=== PATIENT | male | born 1955 | race Caucasian/White ===

== ENCOUNTER 2020-12-14 12:25 | Outpatient (REF) | payer MEDICARE, SELFPAY ==
[2020-12-14 13:31] LABS: MANUAL DIFF FLAG NO
[2020-12-14 13:33] LABS: Basophils Percent Auto 0.2 % (0-2); Hematocrit 41.3 % (42-52); Hemoglobin 13.5 g/dl (14.0-18.0); Imm Gran Abs Auto 0.01 X10*3/uL (0.00-0.03); Imm Gran Pct Auto 0.2 % (0.0-0.4); Lymphocytes Absolute Auto 1.3 X10*3/uL (1.2-4.9); Lymphocytes Percent Auto 29.3 % (20-40); Mean Corpuscular HGB Conc 32.7 g/dl (31.0-36.0); Mean Corpuscular Hemoglobin 29.5 pg (27.0-33.0); Mean Corpuscular Volume 90.2 fL (80-98); Mean Platelet Volume 10.6 fL (9.4-12.4); Monocytes Absolute Auto 0.5 X10*3/uL (0.1-1.2); Monocytes Percent Auto 10.8 % (2-11); Neutrophils Absolute Auto 2.6 X10*3/uL (2.0-8.3); Neutrophils Percent Auto 59.5 % (45-73); Platelet Count 167 X10*3/uL (160-400); Red Blood Count 4.58 X10*6/uL (4.60-5.80); Red Cell Distribution Width 13.8 % (11.0-16.0); White Blood Count 4.3 X10*3/uL (4.8-10.8)
[2020-12-14 14:04] LABS: Alanine Aminotransferase 35 U/L (0-40); Alkaline Phosphatase 64 U/L (39-117); Anion Gap 11 (12-20); Aspartate Amino Transferase 32 U/L (5-37); Bilirubin Total 1.4 mg/dL (0.0-1.0); Blood Urea Nitrogen 15 mg/dL (9-16); Calcium 8.8 mg/dL (8.4-10.2); Carbon Dioxide 27 mmol/L (22-29); Chloride 108 mmol/L (96-108); Cholesterol 148 mg/dL; Estimated Glomerular Filt Rate > 60; Glucose Random 87 mg/dL (60-115); HDL Cholesterol 43 mg/dL; LDL Cholesterol Calculated 82 mg/dl; Sodium 142 mmol/L (135-145); Total Protein 6.6 g/dL (6.5-8.0); Triglycerides 118 mg/dL
[2020-12-14 14:24] LABS: Prostate Specific Antigen 0.65 ng/mL (<0.05-4.0); Thyroid Stimulating Hormone 1.77 uIU/mL (0.32-4.0)
== END 2020-12-14 12:26 | disposition home or self-care (01) ==
LOC: HO.LAB 12:25
PROVIDERS: PCP Internal Medicine; Visit Provider Internal Medicine
DX: Z00.00 Encounter for general adult medical examination without abnormal findings (principal); I10 Essential (primary) hypertension; M05.871 Other rheumatoid arthritis with rheumatoid factor of right ankle and foot; M10.9 Gout, unspecified; N40.0 Benign prostatic hyperplasia without lower urinary tract symptoms; Z86.010 Personal history of colon polyps
CPT/HCPCS: 36415; 80053; 80061; 84153; 84443; 85025

== ENCOUNTER → 2021-03-14 09:30 | Outpatient (BNVA) | payer MEDICARE, SELFPAY | PROVIDERS: PCP Internal Medicine; Visit Provider Physician Assistant | DX: D12.6 Benign neoplasm of colon, unspecified (principal) | CPT/HCPCS: 99202 ==

== ENCOUNTER 2021-04-26 08:28 | Day surgery (SDC) | payer MEDICARE, SELFPAY ==
[2021-04-22 10:42] VITALS: BMI 34.2
--- NOTE | 2021-04-25 08:41 | HO.ANESPROP2 ---
Documented by User: Selene Sullivan NP 04/25/21 08:42 HPI - Anesthesia Eval Consult details Narrative: 66yo M for Colonoscopy PMFSH Active Problems Active Problems: All Active Problems (Updated 04/22/21 @ 10:39 by Eun Martinez RN) Tubular adenoma of colon (Acute) Hypertension (Acute) Past Medical History Medical History Hypertension Rheumatoid arthritis Sleep apnea Family History Family History Father Alzheimers disease Mother Pyelonephritis Family/Other Prostate cancer Breast cancer Polymyalgia rheumatica Surgical History Surgical History H/O colonoscopy History of appendectomy History of cholecystectomy History of facial surgery Social History Social History Household Members Other:: single Are you a primary healthcare recruiter to a significant other at home: No Do you presently have visiting nurse or other home services: No Alcohol intake: never Patient Tobacco Use Status: Former Tobacco user Are you DNR?: No Advance Directives: No Advance Directives Information Provided: Yes (does not have a HCP) Advance Directives on File: No Recently lost weight without trying: No Eating poorly because of decreased appetite: No Nutrition Risks: No Nutritional Risk Current occupational status: disabled Meds Allergies Allergy/AdvReac Type Severity Reaction Status Date / Time methotrexate [METHOTREXATE] Allergy Unknown NAUSEA Verified 04/26/21 09:57 Home Medications Medication Instructions Recorded Confirmed Last Taken Type ciclopirox 0.77 % topical cream appl TOPICAL 07/31/20 03/14/21 Unknown History etanercept 25 mg SUBCUT 2XW ml 09/12/20 04/22/21 Unknown History hydroxyzine HCl 25 mg tablet 25 mg PO Q6H tab 09/12/20 04/22/21 Unknown History hydroxychloroquine 200 mg tablet 200 mg PO BID 03/14/21 04/22/21 Unknown History sulfasalazine 500 mg tablet PO 03/14/21 03/14/21 Unknown History Exam Exam Date and Time: April 25, 2021 0841 Height,Weight and Vital Signs: Height 6 ft 5.5 in Weight 132.903 kg Pertinent Lab Results Pertinent Lab Results: Laboratory Tests 04/16/21 04/16/21 12:40 12:40 WBC 4.3 L Hgb 13.5 L Hct 41.3 L Plt Count 167 Sodium 142 Potassium 4.0 Chloride 108 Carbon Dioxide 27 BUN 15 Creatinine 1.02 Assessment and Plan Assessment Anesthesia Assessment: Chart Reviewed Documented by User: Makayla Vasquez MD 04/26/21 11:05 PMFSH Past Medical History Medical History Hypertension Rheumatoid arthritis Sleep apnea Family History Family History Father Alzheimers disease Mother Pyelonephritis Family/Other Prostate cancer Breast cancer Polymyalgia rheumatica Family history of problems with anesthesia: No Surgical History Surgical History H/O colonoscopy History of appendectomy History of cholecystectomy History of facial surgery History of Problems with Anesthesia: No Social History Social History Household Members Other:: single Are you a primary healthcare recruiter to a significant other at home: No Do you presently have visiting nurse or other home services: No Alcohol intake: never Patient Tobacco Use Status: Former Tobacco user Are you DNR?: No Advance Directives: No Advance Directives Information Provided: Yes (does not have a HCP) Advance Directives on File: No Recently lost weight without trying: No Eating poorly because of decreased appetite: No Nutrition Risks: No Nutritional Risk Current occupational status: disabled Meds Allergies Allergy/AdvReac Type Severity Reaction Status Date / Time methotrexate [METHOTREXATE] Allergy Unknown NAUSEA Verified 04/26/21 09:57 Home Medications Medication Instructions Recorded Confirmed Last Taken Type ciclopirox 0.77 % topical cream appl TOPICAL 07/31/20 03/14/21 Unknown History etanercept 25 mg SUBCUT 2XW ml 09/12/20 04/22/21 Unknown History hydroxyzine HCl 25 mg tablet 25 mg PO Q6H tab 09/12/20 04/22/21 Unknown History hydroxychloroquine 200 mg tablet 200 mg PO BID 03/14/21 04/22/21 Unknown History sulfasalazine 500 mg tablet PO 03/14/21 03/14/21 Unknown History Exam Airway Mallampati Class: II TM Dist: >3cm Neck ROM: Full Assessment and Plan Assessment Anesthesia Assessment: Anesthesia Plan Discussed Final Anesthetic Review Family History of Problems with Anesthesia: No History of Problems with Anesthesia: No NPO: Yes ASA Class: III Final Preanesthetic Review: No Changes in Pt Med Stat, Meds/Allgs Chart Reviewed, Consent Obtained/Reviewed and Anes Risks/Benef Reviewed Patient Risk: Intermediate Procedure Risk: Low Anesthetic Plan Anesthetic Plan: MAC: Disposition: Standard PACU
[2021-04-26 09:59] VITALS: BP 160/78; PULSE 60; RESP 16; TEMP 36.8; O2SAT 98
[2021-04-26] MEDS: Lactated Ringers 1,000 ML 100 ML IVCONT (10:24)
--- NOTE | 2021-04-26 10:27 | MHC.SHP ---
Pre-Procedural Eval Section A Date of Service: 04/26/21 The patient is an INPATIENT: No The History & Physical has been completed within 30 days and I have reviewed it.: No Section B Chief Complaint: tubular adenoma of colon Details of Present Illness: Colon cancer screening, history of colon polyps Relevant Family History (Specify if Yes): No Relevant Social History: Tobacco Use (Former smoker) Present Medications: see Short Stay Collaborative assessment Medical History: Significant History (Hypertension) History of Previous Operations: Relevant previous surgery/procedure and date(s) (H/O colonoscopy History of appendectomy History of cholecystectomy History of facial surgery) Allergies: Allergies Allergy/AdvReac Type Severity Reaction Status Date / Time methotrexate [METHOTREXATE] Allergy Unknown NAUSEA Verified 04/26/21 09:57 Review of Systems Sugical H&P ROS: Negative: Constitution, Cardiovascular, Respiratory and Gastrointestinal Exam Surgical H&P Exam: Normal: Heart, Normal: Lungs, Normal: Extremities and Normal: Abdomen Plan Diagnosis/Plan: Unchanged I have reviewed the history and physical and performed a pertinent physical examination on my patient. No changes have occurred unless specified.
--- NOTE | 2021-04-26 11:27 | P.BOP_ITS ---
Brief Operative Note Date of Service: 04/26/21 Pre-op diagnosis: Colon cancer screening, history of colon polyps Post-op diagnosis: other (Colon polyps, diverticulosis, hemorrhoids) Procedure: COLONOSCOPY TILL MID ASCENDING COLON WITH BIOPSIES AND SNARE POLYPECTOMY Consent: Indications for the procedure and potential complications of bleeding, perforation, reaction to medications and missed diagnosis were discussed with the patient and informed consent was obtained. Instrument: Olympus CF HQ 190 L variable stiffness adult colonoscope Monitoring: Vital signs and clinical assessment, intermittent blood pressure monitoring, continuous EKG monitoring, Pulse oximetry and Carbon Dioxide monitoring were done throughout the procedure. Colon withdrawl time was 25 minutes. Procedure: The patient was placed in the left lateral decubitis position and pre-procedure medications were administered. After a digital rectal examination of the ano-rectum, the video colonoscope was inserted into the rectum and advanced through the colon to the mid AC. The colonoscope was slowly withdrawn in a retrograde panoramic fashion and the colon mucosa was carefully examined including a retroflexed view of the rectum. Findings and interventions are described below. Procedure Difficulty: Colon was long and tortuous and there was recurrent loop formation. Patient was placed in the supine position with application of abdominal pressure to intubate the ascending colon. Cecum was visualized from a distance and was not intubated Findings: Terminal Ileum: Not evaluated Cecum: Not evaluated Ascending Colon: Normal Transverse Colon: A 10-12 mm sessile polyp removed with a cold snare Descending Colon: Moderate diverticulosis Sigmoid Colon: Two 3-4 mm sessile polyps removed with a cold bx. Three 8-10 mm sessile polyps removed with a cold snare. Moderate diverticulosis Rectum: Normal Ano-rectum: Moderate internal hemorrhoids Colon preparation: Good Impression and Post Procedure Diagnosis: Colonoscopy Findings: Six small to medium sized polyps removed. Cecum was not evaluated Moderate diverticulosis seen in the left colon Moderate hemorrhoids on retroflexed exam. Plan: Await pathology results Patient has an appointment on 05/23/21 in the [facility] with JUAN Alaniz. Repeat Colonoscopy interval based on path results - in 6 to 12 months with small bowel enteroscope to help reach the cecum if polyps are adenomatous - please schedule with Dr Constantino Above findings were reviewed with the patient and colon polyps and diverticulosis handouts were given in the discharge area Surgeon: Valdemar Regalado MD Anesthesia: MAC (Malinda Ferro CRNA) Was an Guide Dog Trainer used for this Procedure?: Yes Guide Dog Trainer: Arlin Balderas Estimated blood loss (mL): 0 Pathology: other (a- transverse colon polyp b- sigmoid colon polyps) Condition: stable Disposition: PACU
--- NOTE | 2021-04-26 11:33 | W.PM.OPN ---
Operative Note Operative Note Date of Service: 04/26/21 Narrative: Pre-op diagnosis:?Colon cancer screening, history of colon polyps Post-op diagnosis:?other (Colon polyps, diverticulosis, hemorrhoids) Procedure:? COLONOSCOPY TILL MID ASCENDING COLON WITH BIOPSIES AND SNARE POLYPECTOMY Consent: Indications for the procedure and potential complications of bleeding, perforation, reaction to medications and missed diagnosis were discussed with the patient and informed consent was obtained. Instrument: Olympus CF HQ 190 L variable stiffness adult colonoscope Monitoring: Vital signs and clinical assessment, intermittent blood pressure monitoring, continuous EKG monitoring, Pulse oximetry and Carbon Dioxide monitoring were done throughout the procedure. Colon withdrawl time was 25 minutes. Procedure: The patient was placed in the left lateral decubitis position and pre-procedure medications were administered. After a digital rectal examination of the ano-rectum, the video colonoscope was inserted into the rectum and advanced through the colon to the mid AC. The colonoscope was slowly withdrawn in a retrograde panoramic fashion and the colon mucosa was carefully examined including a retroflexed view of the rectum. Findings and interventions are described below. Procedure Difficulty:? Colon was long and tortuous and there was recurrent loop formation.? Patient was placed in the supine position with application of abdominal pressure to intubate the ascending colon. Cecum was visualized from a distance and was not intubated Findings: Terminal Ileum: Not evaluated Cecum:? Not evaluated Ascending Colon:? Normal Transverse Colon:? A 10-12 mm sessile polyp removed with a cold snare Descending Colon:? Moderate diverticulosis Sigmoid Colon:? Two 3-4 mm sessile polyps removed with a cold bx.? Three 8-10 mm sessile polyps removed with a cold snare.? Moderate diverticulosis Rectum:? Normal Ano-rectum:? Moderate internal hemorrhoids Colon preparation:? Good? Impression and Post Procedure Diagnosis: Colonoscopy Findings: Six small to medium sized polyps removed. Cecum was not evaluated Moderate diverticulosis seen in the left colon Moderate hemorrhoids on retroflexed exam. Plan: Await pathology results Patient has an appointment on 05/23/21 in the GI Clinic with JUAN Alaniz. Repeat Colonoscopy interval based on path results - in 6 to 12 months with small bowel enteroscope to help reach the cecum? if polyps are adenomatous - please schedule with Dr Constantino Above findings were reviewed with the patient and colon polyps and diverticulosis handouts were given in the discharge area Surgeon:?Valdemar Regalado MD Anesthesia:?MAC (Malinda Ferro CRNA) Was an Net Developer Contract used for this Procedure?:?Yes Net Developer Contract:?Arlin Balderas Estimated blood loss (mL):?0 Pathology:?other (a- transverse colon polyp? b- sigmoid colon polyps) Condition:?stable Disposition:?PACU
[2021-04-26 11:36] VITALS: BP 109/57; PULSE 76; RESP 22; TEMP 36.8; O2SAT 92
[2021-04-26 11:51] VITALS: BP 109/53; PULSE 68; RESP 18; TEMP 36.7; O2SAT 98
== END 2021-04-26 13:28 | disposition home or self-care (01) ==
PROVIDERS: PCP Internal Medicine; Visit Provider Internal Medicine Gastroenterology
PROC: 0DJD8ZZ Inspection of Lower Intestinal Tract, Via Natural or Artificial Opening Endoscopic (ICD-10-PCS; CPT 45378; principal; 2021-04-26 10:10)
DX: Z12.11 Encounter for screening for malignant neoplasm of colon (principal); D12.3 Benign neoplasm of transverse colon; D12.5 Benign neoplasm of sigmoid colon; K56.2 Volvulus; K64.8 Other hemorrhoids; K57.30 Diverticulosis of large intestine without perforation or abscess without bleeding; Z86.010 Personal history of colon polyps; I10 Essential (primary) hypertension
CPT/HCPCS: 45385; 45380; 88305

== ENCOUNTER 2021-08-12 23:53 | Observation (INO) | payer MEDICARE, OTHER, SELFPAY ==
--- NOTE | ~2021-08-12 | CT_ITS ---
EXAMINATION: CT CHEST WITHOUT CONTRAST CLINICAL INFORMATION: Question food impaction. COMPARISON: Radiograph from today. TECHNIQUE: Multidetector volumetric CT imaging of the chest was done. Axial MIP volume rendering provided. Sagittal and coronal reformatted images were obtained. This CT examination was performed using dose optimization techniques as appropriate, variously including the following: *Automated exposure control *Adjustment of mA and/or kV according to patient size (this includes techniques or standardized protocols for targeted exams where dose is matched to indication/reason for exam; i.e. extremities or head) *Use of iterative reconstruction technique DLP: 623 mGy-cm FINDINGS: HAND MOLDER: Cardiac leads overlie the chest. LUNGS: The central airways are patent. No consolidation. No pneumothorax. No suspicious pulmonary nodules. MEDIASTINUM: Normal heart size. No pericardial effusion. No mediastinal lymphadenopathy. Calcification in the right lobe of the thyroid gland. The esophagus is dilated throughout much of its course with air-fluid level. PLEURA: There is no pleural effusion. No pleural mass or thickening. AXILLA: No lymphadenopathy. UPPER ABDOMEN: Cholecystectomy. Suspect possible left hepatectomy. Multiple renal cysts with appearance of hydronephrosis bilaterally. OSSEOUS STRUCTURES: No acute or suspicious osseous abnormality. Degenerative changes of the spine. CT/CT chest wo con IMPRESSION: Somewhat dilated esophagus with air-fluid level throughout. No acute pulmonary finding. Bilateral hydronephrosis. This is partially visualized. Fleischner guidelines were followed.
--- NOTE | ~2021-08-12 | XR_ITS ---
EXAMINATION: XR CHEST CLINICAL INFORMATION: Question food impaction COMPARISON: None TECHNIQUE: Frontal view of the chest was obtained. FINDINGS: Cardiac leads overlie the chest. The lungs are well expanded. There is no focal consolidation, edema, or effusion. No pneumothorax. The cardiomediastinal silhouette is within normal limits. No acute osseous abnormality. XR/XR chest 1V IMPRESSION: Clear lungs.
[2021-08-13] VITALS (14 sets, daily range): BP systolic 131–160; BP diastolic 70–88; PULSE 74–108; RESP 16–20; TEMP 37.1–37.2; O2SAT 96–99; BMI 35.8
--- NOTE | 2021-08-13 00:51 | ED_ITS ---
HPI - General Adult General Chief complaint: General Medical Stated complaint: foreign body in throat Time Seen by Provider: 08/13/21 00:13 Source: patient Mode of arrival: ambulatory History of Present Illness HPI narrative: 66-year-old male reports that he was eating ribs this evening when he noted that the food got stuck further down in his esophagus and he has been unable to tolerate any liquids or solids since that time. He denies any chest pain, shortness of breath, difficulty breathing And otherwise has no acute complaints. Related Data Home Medications Medication Instructions Recorded Confirmed etanercept 25 mg SUBCUT 2XW ml 09/12/20 08/13/21 hydroxychloroquine 200 mg tablet 200 mg PO BID 03/14/21 08/13/21 sulfasalazine 500 mg tablet 500 mg PO DAILY 03/14/21 08/13/21 amlodipine 5 mg tablet 1 tab PO DAILY 08/13/21 08/13/21 atenolol 100 mg tablet 1 tab PO DAILY 08/13/21 08/13/21 erythromycin with ethanol 2 % 1 appl TOPICAL BID PRN 08/13/21 08/13/21 topical solution tamsulosin 0.4 mg capsule 0.4 mg PO DAILY 08/13/21 08/13/21 Previous Rx's Medication Instructions Recorded amitriptyline 10 mg tablet 20 mg PO DAILY #90 tab 09/19/20 finasteride 5 mg tablet 5 mg PO DAILY #90 tab 09/19/20 mometasone 0.1 % topical cream 1 appl TOPICAL DAILY #45 g 04/10/21 Allergies Allergy/AdvReac Type Severity Reaction Status Date / Time methotrexate [METHOTREXATE] Allergy Unknown NAUSEA Verified 04/26/21 09:57 Review of Systems Review of Systems: Pertinent positives and negatives as stated in HPI 10 point review of systems is otherwise negative. [facility] Past Medical History Source: nursing notes reviewed Medical History Hypertension Rheumatoid arthritis Sleep apnea Surgical History H/O colonoscopy History of appendectomy History of cholecystectomy History of facial surgery Family History Family History Father Alzheimers disease Mother Pyelonephritis Family/Other Prostate cancer Breast cancer Polymyalgia rheumatica Social History Social History Household Members Other:: single Are you a primary healthcare risk control consultant to a significant other at home: No Do you presently have visiting nurse or other home services: No Alcohol intake: never Patient Tobacco Use Status: Former Tobacco user Advance Directives: No Advance Directives Information Provided: Yes Current occupational status: disabled Physical Exam Vital Signs: Vital Signs: Last Vital Signs Temp 98.8 F 08/13/21 00:02 Pulse 75 08/13/21 04:12 Resp 20 08/13/21 04:12 BP 140/70 H 08/13/21 04:12 Pulse Ox 99 08/13/21 04:12 BMI result Body Mass Index 35.8 VITAL SIGNS: Reviewed. GENERAL: Well developed, well nourished, in no acute distress. HEAD: Normocephalic/atraumatic EYES: PERRLA, EOMI OROPHARYNX: no oral lesions noted, posterior pharynx clear NECK: Supple, no adenopathy LUNGS: Normal breath sounds. No adventitious sounds or accessory muscle use. SpO2<99> CARDIOVASCULAR: Regular rate and rhythm without noted murmurs ABDOMEN: Soft, non-tender, non-distended with bowel sounds. e. NEUROLOGIC: Alert and oriented x 4. Strength and sensation to light touch were grossly intact x 4. Course Course Course Narrative: 66-year-old male with history and clinical presentation food impaction. Attempts were made to relieve patient's obstruction with carbonated beverage, a total of 2 mg of glucagon, and then after discussing with GI attempted a nitro tab 0.4 mg in 10 cc a water and all without success. review of all investigations negative for acute findings other than CT scan notably positive for evidence of impaction with somewhat dilated esophagus and air-fluid levels throughout . I discussed this case with the inpatient hospitalist who accepts admission. Reevaluation(s) Reevaluation #1: GI recommends nitro tab 0.4 dissolved in 10 cc water. Time: 02:05 Medical Decision Making Lab Data Result diagrams: 08/13/21 04:22 08/13/21 04:28 Labs: Lab Results 08/13/21 08/13/21 08/13/21 Range/Units 04:22 04:23 04:28 WBC 6.5 (4.8-10.8) X10*3/uL RBC 4.84 (4.60-5.80) X10*6/uL Hgb 14.4 (14.0-18.0) g/dl Hct 43.6 (42.0-52.0) % MCV 90.1 (80.0-98.0) fL MCH 29.8 (27.0-33.0) pg MCHC 33.0 (31.0-36.0) g/dl RDW 13.8 (11.0-16.0) % Plt Count 162 (160-400) X10*3/uL MPV 10.3 (9.4-12.4) fL Immature Gran % (Auto) 0.2 (0.0-0.4) % Neut % (Auto) 73.0 (45-73) % Lymph % (Auto) 18.9 L (20-40) % [place] % (Auto) 7.4 (2-11) % Eos % (Auto) 0.0 (0-4) % Baso % (Auto) 0.5 (0-2) % Lymph # (Auto) 1.2 (1.2-4.9) X10*3/uL [place] # (Auto) 0.5 (0.1-1.2) X10*3/uL Eos # (Auto) 0.0 (0.0-0.4) X10*3/uL Baso # (Auto) 0.0 (0.0-0.2) X10*3/uL Abs Immat Gran (auto) 0.01 (0.00-0.03) X10*3/uL Absolute Neuts (auto) 4.7 (2.0-8.3) x10*3/uL Absolute Nucleated RBC 0.000 (0.0-0.012) X10*3/uL Nucleated RBC % (auto) 0.0 (0.0-0.2) /100WBC PT 11.0 (9.9-13.0) SEC INR 1.0 (0.9-1.1) Sodium (135-145) mmol/L Potassium (3.3-5.1) mmol/L Chloride (96-108) mmol/L Carbon Dioxide (22-29) mmol/L Anion Gap (12-20) BUN (9-16) mg/dL Creatinine (0.5-1.4) mg/dL Estim Creat Clear Calc Estimated GFR Random Glucose (60-115) mg/dL Calcium (8.4-10.2) mg/dL Total Bilirubin (0.0-1.0) mg/dL AST (5-37) U/L ALT (0-40) U/L Alkaline Phosphatase (39-117) U/L Total Protein (6.5-8.0) g/dL Albumin (3.5-5.0) g/dL COVID-19 ([facility]) Negative (Negative) COVID-19 Clin Com See Note 08/13/21 Range/Units 04:28 WBC (4.8-10.8) X10*3/uL RBC (4.60-5.80) X10*6/uL Hgb (14.0-18.0) g/dl Hct (42.0-52.0) % MCV (80.0-98.0) fL MCH (27.0-33.0) pg MCHC (31.0-36.0) g/dl RDW (11.0-16.0) % Plt Count (160-400) X10*3/uL MPV (9.4-12.4) fL Immature Gran % (Auto) (0.0-0.4) % Neut % (Auto) (45-73) % Lymph % (Auto) (20-40) % [place] % (Auto) (2-11) % Eos % (Auto) (0-4) % Baso % (Auto) (0-2) % Lymph # (Auto) (1.2-4.9) X10*3/uL [place] # (Auto) (0.1-1.2) X10*3/uL Eos # (Auto) (0.0-0.4) X10*3/uL Baso # (Auto) (0.0-0.2) X10*3/uL Abs Immat Gran (auto) (0.00-0.03) X10*3/uL Absolute Neuts (auto) (2.0-8.3) x10*3/uL Absolute Nucleated RBC (0.0-0.012) X10*3/uL Nucleated RBC % (auto) (0.0-0.2) /100WBC PT (9.9-13.0) SEC INR (0.9-1.1) Sodium 144 (135-145) mmol/L Potassium 4.1 (3.3-5.1) mmol/L Chloride 110 H (96-108) mmol/L Carbon Dioxide 24 (22-29) mmol/L Anion Gap 14 (12-20) BUN 16 (9-16) mg/dL Creatinine 1.01 (0.5-1.4) mg/dL Estim Creat Clear Calc 105.8 Estimated GFR > 60 Random Glucose 94 (60-115) mg/dL Calcium 9.8 D (8.4-10.2) mg/dL Total Bilirubin 1.2 H (0.0-1.0) mg/dL AST 23 (5-37) U/L ALT 23 (0-40) U/L Alkaline Phosphatase 76 (39-117) U/L Total Protein 7.3 (6.5-8.0) g/dL Albumin 4.4 (3.5-5.0) g/dL COVID-19 ([facility]) (Negative) COVID-19 Clin Com Discharge Plan Discharge Clinical Impression: Food impaction of esophagus Patient Disposition: Admitted As Inpatient
[2021-08-13] MEDS: Nitroglycerin 0.4 MG TAB.SUBL SUBLINGUAL (02:38)
--- NOTE | 2021-08-13 03:02 | PC.NURSE ---
REPORT TAKEN FROM KRISSY CHAUHAN, FIRST CONTACT WITH PT. A&Ox4, SKIN PWD, RESPIRATIONS EVEN UNLABORED. VOMITING SMALL AMOUNT OF WATER. STATES NO RELIEF FROM PREVIOUSLY ADMINISTERED NITROGLYCERIN. AWAITING MD REEVAL AND POSSIBLE ADMISSION. AWARE OF PLAN OF CARE.
[2021-08-13] MEDS: ondansetron HCL 4 MG/2 ML VIAL IVPUSH (04:04)
[2021-08-13 04:33] LABS: Basophils Percent Auto 0.5 % (0-2); Hematocrit 43.6 % (42.0-52.0); Hemoglobin 14.4 g/dl (14.0-18.0); Imm Gran Abs Auto 0.01 X10*3/uL (0.00-0.03); Imm Gran Pct Auto 0.2 % (0.0-0.4); Lymphocytes Absolute Auto 1.2 X10*3/uL (1.2-4.9); Lymphocytes Percent Auto 18.9 % (20-40); MANUAL DIFF FLAG NO; Mean Corpuscular Hemoglobin 29.8 pg (27.0-33.0); Mean Corpuscular Volume 90.1 fL (80.0-98.0); Mean Platelet Volume 10.3 fL (9.4-12.4); Monocytes Absolute Auto 0.5 X10*3/uL (0.1-1.2); Monocytes Percent Auto 7.4 % (2-11); Neutrophils Absolute Auto 4.7 x10*3/uL (2.0-8.3); Platelet Count 162 X10*3/uL (160-400); Red Blood Count 4.84 X10*6/uL (4.60-5.80); Red Cell Distribution Width 13.8 % (11.0-16.0); White Blood Count 6.5 X10*3/uL (4.8-10.8)
[2021-08-13 04:46] LABS: COVID-19 Test Negative (Negative); IDNOW Serial# 9DD0AD1C
[2021-08-13 05:18] LABS: Alanine Aminotransferase 23 U/L (0-40); Albumin Level 4.4 g/dL (3.5-5.0); Alkaline Phosphatase 76 U/L (39-117); Anion Gap 14 (12-20); Aspartate Amino Transferase 23 U/L (5-37); Bilirubin Total 1.2 mg/dL (0.0-1.0); Blood Urea Nitrogen 16 mg/dL (9-16); Calcium 9.8 mg/dL (8.4-10.2); Carbon Dioxide 24 mmol/L (22-29); Chloride 110 mmol/L (96-108); Creatinine Clr Calc Pharmacy 105.8; Estimated Glomerular Filt Rate > 60; Glucose Random 94 mg/dL (60-115); Potassium 4.1 mmol/L (3.3-5.1); Sodium 144 mmol/L (135-145); Total Protein 7.3 g/dL (6.5-8.0)
--- NOTE | 2021-08-13 06:40 | PC.NURSE ---
PT TO BE ADMITTED FOR ENDOSCOPY TODAY. MED REC COMPLETED WITH PT. NO FURTHER VOMITING AFTER ZOFRAN ADMINISTRATION. MAINTAINING AIRWAY AND SECRETIONS, SPEAKING IN FULL SENTENCES. AWAITING HOSPITALIST CONSULT. AWARE OF PLAN OF CARE.
--- NOTE | 2021-08-13 08:45 | PC.NURSE ---
unlabored resp with ambulation to br. handling secretions. skin pwd. nsr on monitor
--- NOTE | 2021-08-13 08:49 | PC.NURSE ---
RN to RN with [place].
--- NOTE | 2021-08-13 09:01 | PM.GICN ---
History of Present Illness Data of Consult Service Date: 08/13/21 Requesting physician: Dana Webb Primary Care Provider: Liane Riley MD HPI Reason for consult: food bolus impaction 66 yr old m w hx of RA, cholecystectomy, appendectomy, HTN and BPH being seen for food impaction Had ribs last night, and felt food got stuck and wouldn;t go down with fluids or self induced retching. Has had this before many times, but not needed to come to hospital usually. sx going on for 10 yrs or more He denies chest pain, breathign a little strained but talking easily, not wheezy, no fever no melena, or rectal bleeding does admit to drinking maybe too much alcohol but unable to quantify Came to ED for assessment, had CT chest with air-fluid filled esophagus, hydronephrosis Labs were nml, incl plts and INR (checked as he thought he had varices causing a blockage but he really didn't know what this meant and denied liver disease) Review of Systems Review of Systems: Constitutional : No Weight loss, No Fever, No Chills ENT/Mouth : No sore throat, No Rhinorrhea Eyes: No Swelling, No Redness Cardiovascular : No Chest Pain, No SOB, No Edema Respiratory : No Cough, No Sputum, No Wheezing Gastrointestinal : see HPI Genitourinary : NO Dysuria, No Urinary Frequency, No Hematuria, No Urgency Musculoskeletal : No joint pain, No Myalgias, No Joint Swelling Skin : No Skin Lesions, No rash Neuro : No Weakness, No Numbness, No Dizziness, No Headache Psych : No Anxiety/Panic, No Depression Heme/Lymph: No Bruising, No Lymphadenopathy Endocrine : No Polyuria, No Polydipsia All other systems reviewed and are negative. [facility] Past Medical History Medical History Hypertension Rheumatoid arthritis Sleep apnea Family History Family History Father Alzheimers disease Mother Pyelonephritis Family/Other Prostate cancer Breast cancer Polymyalgia rheumatica Surgical History Surgical History H/O colonoscopy History of appendectomy History of cholecystectomy History of facial surgery Social History Social History (Updated 08/13/21 @ 10:23 by Gregory Devi MD) Household Members Other:: single Are you a primary pet caregiver to a significant other at home: No Do you presently have visiting nurse or other home services: No Patient Tobacco Use Status: Former Tobacco user Quit Date: 1995 Use of substances other than those prescribed or required for medical reasons: No Are you DNR?: No Advance Directives: No Advance Directives Information Provided: Yes Current occupational status: disabled Meds Allergies Allergy/AdvReac Type Severity Reaction Status Date / Time methotrexate [METHOTREXATE] Allergy Unknown NAUSEA Verified 08/13/21 12:00 Home Medications Medication Instructions Recorded Confirmed Last Taken Type etanercept 25 mg SUBCUT 2XW ml 09/12/20 08/13/21 08/08/21 History hydroxychloroquine 200 mg tablet 200 mg PO BID 03/14/21 08/13/21 08/12/21 History sulfasalazine 500 mg tablet 500 mg PO DAILY 03/14/21 08/13/21 08/12/21 History amlodipine 5 mg tablet 1 tab PO DAILY 08/13/21 08/13/21 08/12/21 History atenolol 100 mg tablet 1 tab PO DAILY 08/13/21 08/13/21 08/11/21 History erythromycin with ethanol 2 % 1 appl TOPICAL BID PRN 08/13/21 08/13/21 Unknown History topical solution tamsulosin 0.4 mg capsule 0.4 mg PO DAILY 08/13/21 08/13/21 08/12/21 History Physical Exam Vital Signs: Vital Signs: Last Vital Signs Temp 98.8 F 08/13/21 00:02 Pulse 74 08/13/21 08:43 Resp 18 08/13/21 08:43 BP 151/84 H 08/13/21 08:43 Pulse Ox 97 08/13/21 08:43 BMI result Body Mass Index 35.8 EXAM: GENERAL: The patient is well developed and nontoxic. Obese, thick neck, relaxed VITAL SIGNS:see workflow HEENT: Nonicteric sclerae, PERRLA, EOMI. Oropharynx clear. Moist mucous membranes. Conjunctivae appear well perfused. No thyroid mass. CHEST: Chest wall is nontender. HEART: Regular rate and rhythm without murmurs. LUNGS: Clear to auscultation bilaterally. ABDOMEN: Soft, positive bowel sounds, nontender, no organomegaly.no flank tenderness SKIN: No rash, no excessive bruising, petechiae, or purpura. NEUROLOGIC: Cranial nerves II-XII intact without motor/sensory deficit. Psych-appropriate affect Skin: General skin exam: no rashes or lesions noted Extrem: General: Yes normal to inspection Psych: Appearance: grossly normal Results Labs CBC & Chem 7: 08/13/21 04:22 08/13/21 04:28 Labs: Short CBC 08/13/21 Range/Units 04:22 WBC 6.5 (4.8-10.8) X10*3/uL Hgb 14.4 (14.0-18.0) g/dl Hct 43.6 (42.0-52.0) % Plt Count 162 (160-400) X10*3/uL BMP 08/13/21 04:28 Sodium 144 Potassium 4.1 Chloride 110 H Carbon Dioxide 24 BUN 16 Creatinine 1.01 Calcium 9.8 D Liver Function 08/13/21 Range/Units 04:28 Total Bilirubin 1.2 H (0.0-1.0) mg/dL AST 23 (5-37) U/L ALT 23 (0-40) U/L Alkaline Phosphatase 76 (39-117) U/L Albumin 4.4 (3.5-5.0) g/dL Imaging CT scan - chest: Attestation: I personally reviewed and interpreted this imaging study as follows: My impression: thickened esophagus with air fluid level Assessment and Plan (1) Food impaction of esophagus: Status: Acute 1/ Recurrent hx of food impaction with pork and red meats, usu manages by himself at home, but this time not improving with fluids, glucagon or nitrotab. May have Eoe or peptic stricture, schatzki ring. Less likely malignancy given duration of sx PLAN: 1/ EGD today with disimpaction of food bolus, may need to be intubated. Procedures Date of Service Date of Service: 08/13/21
--- NOTE | 2021-08-13 09:05 | MHC.SHP ---
Pre-Procedural Eval Section A Date of Service: 08/13/21 The patient is an INPATIENT: Yes The History & Physical has been completed within 30 days and I have reviewed it.: Yes Section B Chief Complaint: foreign body in throat Allergies: Allergies Allergy/AdvReac Type Severity Reaction Status Date / Time methotrexate [METHOTREXATE] Allergy Unknown NAUSEA Verified 04/26/21 09:57 Plan Diagnosis/Plan: Unchanged I have reviewed the history and physical and performed a pertinent physical examination on my patient. No changes have occurred unless specified. EGD
--- NOTE | 2021-08-13 10:17 | PC.NURSE ---
rn to rn with miles in short stay. patient aware that 11am he's expected in short stay and is undressing etc.
--- NOTE | 2021-08-13 10:18 | PC.NURSE ---
has not had anything PO since this rn arrival at 7am and has not been vomiting. still feels FB
--- NOTE | 2021-08-13 10:19 | P.HPHOSP_ITS ---
History of Present Illness Date of Service: 08/13/21 Chief Complaint: choking on ribs This is a 66 yo M with a PMH as outlined below who presents to the hospital with complaints of feelings of food stuck in his throat. He reports that he was eating some ribs yesterday and felt that the food was stuck in his superior neck region and would not move further down. He reports he tried to drink some liquids to see if he could help it pass down but only ended up vomiting them back up and so he presented to the ED. He reported no chest pain, cough or difficulty breathing. Per chart review -- ? this has happened before In the ED, he was given a total of 2mg glucagon and 0.4mg nitro tab in 10 cc of water without any success. Oral intake resulted in vomiting. He Underwent a CT of the chest which showed a dilated esophagus with air-fluid level throughout. He was evaluated by GI and will require an upper endoscopy. He will be admitted for observation. Review of Systems Review of Systems: negative except HPI PMFSH Medical History Hypertension Rheumatoid arthritis Sleep apnea Family History Father Alzheimers disease Mother Pyelonephritis Family/Other Prostate cancer Breast cancer Polymyalgia rheumatica Surgical History H/O colonoscopy History of appendectomy History of cholecystectomy History of facial surgery Social History (Updated 08/13/21 @ 10:23 by Gregory Devi MD) Household Members Other:: single Are you a primary animal care service worker to a significant other at home: No Do you presently have visiting nurse or other home services: No Patient Tobacco Use Status: Former Tobacco user Advance Directives: No Advance Directives Information Provided: Yes Current occupational status: disabled Meds Allergies Allergy/AdvReac Type Severity Reaction Status Date / Time methotrexate [METHOTREXATE] Allergy Unknown NAUSEA Verified 04/26/21 09:57 Active Medications: Current Medications Sodium Chloride () 1,000 mls @ 100 mls/hr IVCONT .Q10H JADE Ondansetron HCl (Ondansetron Hcl 4 Mg/2 Ml Vial) 4 mg IVPUSH Q8H PRN PRN Reason: Nausea and Vomiting Sodium Chloride (0.9 % Sodium Chloride Flush 3 Ml Syringe) 3 ml IVFLUSH QSHIFT [facility] Home Medications Medication Instructions Recorded Confirmed Last Taken Type etanercept 25 mg SUBCUT 2XW ml 09/12/20 08/13/21 08/08/21 History hydroxychloroquine 200 mg tablet 200 mg PO BID 03/14/21 08/13/21 08/12/21 History sulfasalazine 500 mg tablet 500 mg PO DAILY 03/14/21 08/13/21 08/12/21 History amlodipine 5 mg tablet 1 tab PO DAILY 08/13/21 08/13/21 08/12/21 History atenolol 100 mg tablet 1 tab PO DAILY 08/13/21 08/13/21 08/11/21 History erythromycin with ethanol 2 % 1 appl TOPICAL BID PRN 08/13/21 08/13/21 Unknown History topical solution tamsulosin 0.4 mg capsule 0.4 mg PO DAILY 08/13/21 08/13/21 08/12/21 History Physical Exam Vital Signs and Narrative: Vital Signs: Last Vital Signs Temp 98.8 F 08/13/21 00:02 Pulse 74 08/13/21 08:43 Resp 18 08/13/21 08:43 BP 151/84 H 08/13/21 08:43 Pulse Ox 97 08/13/21 08:43 BMI result Body Mass Index 35.8 Const: Other: Constitutional - Awake and Alert, trying to swallow Eyes - PERRLA, EOMI Cardiovascular - S1S2, RRR, No edema Respiratory - Normal lung expansion, Normal respiratory effort, No respiratory distress, CTA bilaterally Gastrointestinal - NT / ND; +BS; No rebound or guarding - No CVA tenderness Extremities - no calf tenderness bilaterally, no swelling Musculoskeletal - Normal inspection, normal ROM Skin - Warm/Dry Neurological - Alert & oriented x3, No focal deficit Psychological - Appropriate affect Results Labs CBC and Chem 7: 08/13/21 04:22 08/13/21 04:28 Labs: Laboratory Results - last 24 hr 08/13/21 08/13/21 08/13/21 04:22 04:23 04:28 MCV 90.1 MCH 29.8 MCHC 33.0 RDW 13.8 Plt Count 162 MPV 10.3 Immature Gran % (Auto) 0.2 Neut % (Auto) 73.0 Lymph % (Auto) 18.9 L [place] % (Auto) 7.4 Eos % (Auto) 0.0 Baso % (Auto) 0.5 Lymph # (Auto) 1.2 [place] # (Auto) 0.5 Eos # (Auto) 0.0 Baso # (Auto) 0.0 Abs Immat Gran (auto) 0.01 Absolute Neuts (auto) 4.7 Absolute Nucleated RBC 0.000 Nucleated RBC % (auto) 0.0 PT 11.0 INR 1.0 Anion Gap Estim Creat Clear Calc Estimated GFR Random Glucose Calcium Total Bilirubin AST ALT Alkaline Phosphatase Total Protein Albumin COVID-19 ([facility]) Negative COVID-19 Clin Com See Note 08/13/21 04:28 MCV MCH MCHC RDW Plt Count MPV Immature Gran % (Auto) Neut % (Auto) Lymph % (Auto) [place] % (Auto) Eos % (Auto) Baso % (Auto) Lymph # (Auto) [place] # (Auto) Eos # (Auto) Baso # (Auto) Abs Immat Gran (auto) Absolute Neuts (auto) Absolute Nucleated RBC Nucleated RBC % (auto) PT INR Anion Gap 14 Estim Creat Clear Calc 105.8 Estimated GFR > 60 Random Glucose 94 Calcium 9.8 D Total Bilirubin 1.2 H AST 23 ALT 23 Alkaline Phosphatase 76 Total Protein 7.3 Albumin 4.4 COVID-19 ([facility]) COVID-19 Clin Com Imaging Radiologist's Impressions: Impressions Chest X-Ray 08/13/21 04:22 IMPRESSION: Clear lungs. Chest CT 08/13/21 04:38 IMPRESSION: Somewhat dilated esophagus with air-fluid level throughout. No acute pulmonary finding. Bilateral hydronephrosis. This is partially visualized. Fleischner guidelines were followed. Assessment and Plan (1) Food impaction of esophagus: Status: Acute This is a 66 yo M who presents after sudden onset sensation of food not moving down while eating ribs. His presentation and CT findings are worrisome for food impaction. He will be admitted for further work up and treatment. 1. Suspected food impaction Failed conservative measures in the ED now will be admitted -- plan for EGD this morning. hydrate with D5-1/2 possible d/c his evening after EGD 2. Alcohol use does not quantify amount, but reports too much last drink 3 days [employer]. Reports headache as only withdrawal symptom Monitor for now 3. HTN hold oral meds 4. RA hold oral meds Full Code DVT pptx - low risk Quality Stroke Does the patient have a stroke diagnosis?: No VTE Prior VTE?: No VTE Risk Level:: Medical - low VTE Device Contraindication: Treatment Not Indicated VTE Drug Contraindication: Treatment Not Indicated
--- NOTE | 2021-08-13 11:28 | PC.NURSE ---
TRANSFERED TO SHORT STAY BY PCT.
--- NOTE | 2021-08-13 11:39 | PC.NURSE ---
Rn to Rn with Katharina in overflow. pt will go to bed 5 after short stay.
--- NOTE | 2021-08-13 12:58 | HO.ANESPROP2 ---
HPI - Anesthesia Eval Consult details Narrative: 66 yo male patient for EGD for food bolus PMFSH Active Problems Active Problems: All Active Problems (Updated 08/13/21 @ 05:18 by Dana Webb MD) Tubular adenoma of colon (Acute) Food impaction of esophagus (Acute) Hypertension (Acute) Increased BMI JUVENAL not using CPAP Machine Past Medical History Medical History Hypertension Rheumatoid arthritis Sleep apnea Family History Family History Father Alzheimers disease Mother Pyelonephritis Family/Other Prostate cancer Breast cancer Polymyalgia rheumatica Family history of problems with anesthesia: No Surgical History Surgical History H/O colonoscopy History of appendectomy History of cholecystectomy History of facial surgery History of Problems with Anesthesia: No Social History Social History Household Members Other:: single Are you a primary lawn care professional to a significant other at home: No Do you presently have visiting nurse or other home services: No Patient Tobacco Use Status: Former Tobacco user Quit Date: 1995 Use of substances other than those prescribed or required for medical reasons: No Are you DNR?: No Advance Directives: No Advance Directives Information Provided: Yes Current occupational status: disabled Meds Allergies Allergy/AdvReac Type Severity Reaction Status Date / Time methotrexate [METHOTREXATE] Allergy Unknown NAUSEA Verified 08/13/21 12:00 Active Medications: Current Medications Sodium Chloride () 1,000 mls @ 100 mls/hr IVCONT .Q10H JADE Ondansetron HCl (Ondansetron Hcl 4 Mg/2 Ml Vial) 4 mg IVPUSH Q8H PRN PRN Reason: Nausea and Vomiting Sodium Chloride (0.9 % Sodium Chloride Flush 3 Ml Syringe) 3 ml IVFLUSH QSHIFT [facility] Home Medications Medication Instructions Recorded Confirmed Last Taken Type etanercept 25 mg SUBCUT 2XW ml 09/12/20 08/13/21 08/08/21 History hydroxychloroquine 200 mg tablet 200 mg PO BID 03/14/21 08/13/21 08/12/21 History sulfasalazine 500 mg tablet 500 mg PO DAILY 03/14/21 08/13/2108/12/21 History amlodipine 5 mg tablet 1 tab PO DAILY 08/13/21 08/13/21 08/12/21 History atenolol 100 mg tablet 1 tab PO DAILY 08/13/21 08/13/21 08/11/21 History erythromycin with ethanol 2 % 1 appl TOPICAL BID PRN 08/13/21 08/13/21 Unknown History topical solution tamsulosin 0.4 mg capsule 0.4 mg PO DAILY 08/13/21 08/13/21 08/12/21 History Exam Exam Date and Time: August 13, 2021 125 Height,Weight and Vital Signs: Height 6 ft 4 in Weight 133.356 kg Last Vital Signs Temp 99.0 F 08/13/21 12:01 Pulse 80 08/13/21 12:01 Resp 16 08/13/21 12:01 BP 160/81 H 08/13/21 12:01 Pulse Ox 96 08/13/21 12:01 Pertinent Lab Results Pertinent Lab Results: Laboratory Tests 08/13/21 08/13/21 08/13/21 04:22 04:23 04:28 WBC 6.5 RBC 4.84 Hgb 14.4 Hct 43.6 MCV 90.1 MCH 29.8 MCHC 33.0 RDW 13.8 Plt Count 162 MPV 10.3 Immature Gran % (Auto) 0.2 Neut % (Auto) 73.0 Lymph % (Auto) 18.9 L [place] % (Auto) 7.4 Eos % (Auto) 0.0 Baso % (Auto) 0.5 Lymph # (Auto) 1.2 [place] # (Auto) 0.5 Eos # (Auto) 0.0 Baso # (Auto) 0.0 Abs Immat Gran (auto) 0.01 Absolute Neuts (auto) 4.7 Absolute Nucleated RBC 0.000 Nucleated RBC % (auto) 0.0 PT 11.0 INR 1.0 Sodium Potassium Chloride Carbon Dioxide Anion Gap BUN Creatinine Estim Creat Clear Calc Estimated GFR Random Glucose Calcium Total Bilirubin AST ALT Alkaline Phosphatase Total Protein Albumin COVID-19 ([facility]) Negative COVID-19 Clin Com See Note 08/13/21 04:28 WBC RBC Hgb Hct MCV MCH MCHC RDW Plt Count MPV Immature Gran % (Auto) Neut % (Auto) Lymph % (Auto) [place] % (Auto) Eos % (Auto) Baso % (Auto) Lymph # (Auto) [place] # (Auto) Eos # (Auto) Baso # (Auto) Abs Immat Gran (auto) Absolute Neuts (auto) Absolute Nucleated RBC Nucleated RBC % (auto) PT INR Sodium 144 Potassium 4.1 Chloride 110 H Carbon Dioxide 24 Anion Gap 14 BUN 16 Creatinine 1.01 Estim Creat Clear Calc 105.8 Estimated GFR > 60 Random Glucose 94 Calcium 9.8 D Total Bilirubin 1.2 H AST 23 ALT 23 Alkaline Phosphatase 76 Total Protein 7.3 Albumin 4.4 COVID-19 ([facility]) COVID-19 Clin Com Airway Mallampati Class: III TM Dist: >3cm Neck ROM: Full Heart: RRR Lungs: CTAB Assessment and Plan Assessment Anesthesia Assessment: Anesthesia Plan Discussed and Chart Reviewed Final Anesthetic Review Family History of Problems with Anesthesia: No History of Problems with Anesthesia: No NPO: Yes ASA Class: III Final Preanesthetic Review: No Changes in Pt Med Stat, Meds/Allgs Chart Reviewed, Consent Obtained/Reviewed and Anes Risks/Benef Reviewed Patient Risk: Intermediate Procedure Risk: Intermediate Assessment/Block/Sedation in SS: Assess/Block/Sedation-SS Anesthetic Plan Anesthetic Plan: GA Disposition: Standard PACU
--- NOTE | 2021-08-13 13:38 | PM.OP ---
Brief Operative Note Date of Service: 08/13/21 Pre-op diagnosis: food bolus impaction Post-op diagnosis: same Procedure: see op note Surgeon: Car Constantino MD Anesthesia: GETA Was an Safety Specialist used for this Procedure?: No Estimated blood loss (mL): 0 Condition: stable Disposition: PACU
--- NOTE | 2021-08-13 13:38 | W.PM.OPN ---
Operative Note Operative Note Date of Service: 08/13/21 Narrative: Procedure Description: EGD FLEXIBLE TRANSORAL UPPER GASTROINTESTINAL ENDOSCOPY UPPER ENDOSCOPY Consent: Indications for the procedure and potential complications of bleeding, perforation, reaction to medications and missed diagnosis were discussed with the patient and informed consent was obtained. Instrument: Olympus GIF H 190 J mid size upper endoscope Monitoring: Vital signs and clinical assessment, continuous EKG monitoring, Pulse oximetry, Carbon Dioxide monitoring and blood pressure monitoring were done throughout the procedure. Procedure: The patient was placed in the left lateral decubitis position and pre-procedure medications were administered and a bite block was placed. The endoscope was inserted into the mouth and advanced under direct vision to the third part of duodenum. A careful inspection was made as the upper endoscope was withdrawn including a retroflexed examination of the proximal stomach; Findings and interventions are described below. Findings: Larynx:normal Esophagus: GE junction at 45 cm, diaphragm hiatus at 45 cm, inflammed and macerated tissue around the GEJ with few erosions in distal esophagus noted but no food bolus seen. Bx taken from distal esophagus and proximal esophagus in separate jars. Stomach: diffuse gastric erythema with rubbery tissue. Biopsies were obtained. Grade 2 flap valve on retroflexed examination of the cardia. Duodenum: erosive duodenitis noted in the bulb and descending areas, bx taken Intervention: Biopsies as noted above Impression/Findings: no food bolus erosive duodenitis esophagitis gastritis PLAN: await path d/c with high dose PPI and 2 weeks of carafate repeat EGD in 3 months chew food thoroughly with plenty of fluids
--- NOTE | 2021-08-13 14:01 | PM.DS ---
DS: Providers Provider Date of Service: 08/13/21 <Sarah Leach NP - Last Filed: 08/13/21 14:05> Date of admission: 08/13/21 10:16 <Sarah Leach NP - Last Filed: 08/13/21 14:05> Primary care physician: Liane Riley MD <Sarah Leach NP - Last Filed: 08/13/21 14:05> Consults: 08/13/21 10:16 Consult to Gastroenterology Routine Consulting Provider: Car Constantino Reason for consultation: food impaction Has provider been notified: Yes <Sarah Leach NP - Last Filed: 08/13/21 14:05> Attending physician on discharge: Gregory Devi <Sarah Leach NP - Last Filed: 08/13/21 14:05> Discharging clinician: Sarah Leach <Sarah Leach NP - Last Filed: 08/13/21 14:05> DS: Diagnosis Discharge Diagnosis (1) Food impaction of esophagus: Status: Acute <Sarah Leach NP - Last Filed: 08/13/21 14:05> (2) Gastritis: Status: Acute <Sarah Leach NP - Last Filed: 08/13/21 14:05> (3) Esophagitis: Status: Acute <Sarah Leach NP - Last Filed: 08/13/21 14:05> (4) Alcohol use: Status: Acute <Sarah Leach NP - Last Filed: 08/13/21 14:05> DS: Summary Hospital Course Hospital Course: HP as per admitting provider This is a 66 yo M with a PMH as outlined below who presents to the hospital with complaints of feelings of food stuck in his throat. He reports that he was eating some ribs yesterday and felt that the food was stuck in his superior neck region and would not move further down. He reports he tried to drink some liquids to see if he could help it pass down but only ended up vomiting them back up and so he presented to the ED. He reported no chest pain, cough or difficulty breathing. Per chart review -- ? this has happened before. In the ED, he was given a total of 2mg glucagon and 0.4mg nitro tab in 10 cc of water without any success. Oral intake resulted in vomiting. He Underwent a CT of the chest which showed a dilated esophagus with air-fluid level throughout. He was evaluated by GI and will require an upper endoscopy. He will be admitted for observation . Esophagitis/ erosive duodenitis/gastritis. All found on endoscopy. Initially thought to be food impaction however patient underwent endoscopy and no food boluses were found. he will be started on high-dose PPI and 2 weeks Carafate. Pathology is pending. He will follow up with Gastroenterology for a repeat endoscopy in 3 months. Alcohol abuse. Encouraged to stop drinking To avoid worsening gastritis. <Sarah Leach NP - Last Filed: 08/13/21 14:05> Time Spent with Patient Time attestation: Total time spent providing and/or coordinating discharge services: <Sarah Leach NP - Last Filed: 08/13/21 14:05> Discharge coordination time: Greater than 30 minutes <Sarah Leach NP - Last Filed: 08/13/21 14:05> Quality: Stroke Does the patient have a stroke diagnosis?: No <Sarah Leach NP - Last Filed: 08/13/21 14:05> Physical Exam Vital Signs: Vital Signs: Last Vital Signs Temp 99 F 08/13/21 13:45 Pulse 96 08/13/21 13:59 Resp 20 08/13/21 13:59 BP 136/75 08/13/21 13:59 Pulse Ox 97 08/13/21 13:59 BMI result Body Mass Index 35.8 <Sarah Leach NP - Last Filed: 08/13/21 14:05> Appearing in no acute distress lung sounds are clear to auscultation heart regular rate rhythm, clear S1, S2 positive bowel sounds, abdomen is soft, nontender neuro patient is alert x3, no focal deficits <Sarah Leach NP - Last Filed: 08/13/21 14:05> DS: Data Data Completed and Pending Labs on day of discharge: Laboratory Results - last 24 hr 08/13/21 08/13/21 08/13/21 04:22 04:23 04:28 WBC 6.5 RBC 4.84 Hgb 14.4 Hct 43.6 MCV 90.1 MCH 29.8 MCHC 33.0 RDW 13.8 Plt Count 162 MPV 10.3 Immature Gran % (Auto) 0.2 Neut % (Auto) 73.0 Lymph % (Auto) 18.9 L [place] % (Auto) 7.4 Eos % (Auto) 0.0 Baso % (Auto) 0.5 Lymph # (Auto) 1.2 [place] # (Auto) 0.5 Eos # (Auto) 0.0 Baso # (Auto) 0.0 Abs Immat Gran (auto) 0.01 Absolute Neuts (auto) 4.7 Absolute Nucleated RBC 0.000 Nucleated RBC % (auto) 0.0 PT 11.0 INR 1.0 Sodium Potassium Chloride Carbon Dioxide Anion Gap BUN Creatinine Estim Creat Clear Calc Estimated GFR Random Glucose Calcium Total Bilirubin AST ALT Alkaline Phosphatase Total Protein Albumin COVID-19 ([facility]) Negative COVID-19 Clin Com See Note 08/13/21 04:28 WBC RBC Hgb Hct MCV MCH MCHC RDW Plt Count MPV Immature Gran % (Auto) Neut % (Auto) Lymph % (Auto) [place] % (Auto) Eos % (Auto) Baso % (Auto) Lymph # (Auto) [place] # (Auto) Eos # (Auto) Baso # (Auto) Abs Immat Gran (auto) Absolute Neuts (auto) Absolute Nucleated RBC Nucleated RBC % (auto) PT INR Sodium 144 Potassium 4.1 Chloride 110 H Carbon Dioxide 24 Anion Gap 14 BUN 16 Creatinine 1.01 Estim Creat Clear Calc 105.8 Estimated GFR > 60 Random Glucose 94 Calcium 9.8 D Total Bilirubin 1.2 H AST 23 ALT 23 Alkaline Phosphatase 76 Total Protein 7.3 Albumin 4.4 COVID-19 ([facility]) COVID-19 Clin Com <Sarah Leach NP - Last Filed: 08/13/21 14:05> Discharge Plan Discharge Anticipated Discharge Date/Time: 08/13/21 13:56 <Sarah Leach NP - Last Filed: 08/13/21 14:05> Patient Disposition: Home, Self-Care <Sarah Leach NP - Last Filed: 08/13/21 14:05> Discharge Diagnosis: Erosive duodenitis Esophagitis Gastritis <Sarah Leach NP - Last Filed: 08/13/21 14:05> Erosive duodenitis Esophagitis Gastritis <Gregory Devi MD - Last Filed: 08/14/21 13:20> Referrals: Liane Riley MD [Primary Care Provider] - 1 Week Car Constantino MD [Physician] - 1 Week (pathology results ) <Sarah Leach NP - Last Filed: 08/13/21 14:05> Discharge Medications: New omeprazole magnesium [Prilosec OTC] 20 mg tablet,delayed release (DR/EC) 20 mg PO BID Qty: 60 RF: 0 sucralfate [Carafate] 1 gram tablet 1 g PO BID Qty: 28 RF: 0 Continued etanercept 25 mg/0.5 mL (0.5) syringe 25 mg subcut 2XW RF: 0 amitriptyline 10 mg tablet 20 mg PO DAILY Qty: 90 RF: 8 finasteride 5 mg tablet 5 mg PO DAILY Qty: 90 RF: 8 mometasone 0.1 % cream 1 appl topical DAILY Qty: 45 RF: 8 erythromycin with ethanol 2 % solution 1 appl topical BID PRN (Reason: Rash) RF: 0 atenolol 100 mg tablet 1 tab PO DAILY RF: 0 amlodipine 5 mg tablet 1 tab PO DAILY RF: 0 tamsulosin 0.4 mg capsule 0.4 mg PO DAILY RF: 0 sulfasalazine 500 mg tablet 500 mg PO DAILY RF: 0 hydroxychloroquine 200 mg tablet 200 mg PO BID RF: 0 <Sarah Leach NP - Last Filed: 08/13/21 14:05> Discharge Orders: Discharge Order (Routine); Ordered 08/13/21 Ordered By: Sarah Leach <Sarah Leach NP - Last Filed: 08/13/21 14:05> Diet: advance to usual diet <Sarah Leach NP - Last Filed: 08/13/21 14:05> advance to usual diet <Gregory Devi MD - Last Filed: 08/14/21 13:20> Activity on Discharge: As tolerated <Sarah Leach NP - Last Filed: 08/13/21 14:05> As tolerated <Gregory Devi MD - Last Filed: 08/14/21 13:20> Stand Alone Forms: Patient Portal Discharge page <Sarah Leach NP - Last Filed: 08/13/21 14:05> Care Plan Goals: Resolution of symptoms chew food thoroughly with plenty of fluids <Sarah Leach NP - Last Filed: 08/13/21 14:05> Health Concerns: Erosive duodenitis Esophagitis Gastritis <Sarah Leach NP - Last Filed: 08/13/21 14:05> Plan of Treatment: Take prilosec and carafate as directed <Sarah Leach NP - Last Filed: 08/13/21 14:05> Assessment: See discharge summary Attending Attestation: I have personally seen and examined the patient independently (on the date of service as documented by NPP), reviewed the NPP history, exam and?MDM and agree with the assessment and plan as?written <Sarah Leach NP - Last Filed: 08/13/21 14:05> Discharge Date/Time: 08/13/21 16:28 <Sarah Leach NP - Last Filed: 08/13/21 14:05>
[2021-08-13] MEDS: Pantoprazole Sodium 40 MG/10 ML VIAL IVPUSH (14:34)
== END 2021-08-13 16:28 | disposition home or self-care (01) ==
LOC: HO.ED 08-13 07:39 → HO.EDOVER 08-13 10:26
PROVIDERS: Internal Medicine Gastroenterology; Admitting Provider Family Medicine; Emergency Provider Student in an Organized Health Care Education/Training Program; PCP Internal Medicine; Visit Provider Family Medicine
PROC: 0DJ08ZZ Inspection of Upper Intestinal Tract, Via Natural or Artificial Opening Endoscopic (ICD-10-PCS; CPT 43235; principal; 2021-08-13 12:00)
DX: T18.128A Food in esophagus causing other injury, initial encounter (principal); X58.XXXA Exposure to other specified factors, initial encounter; Y93.9 Activity, unspecified; Y92.039 Unspecified place in apartment as the place of occurrence of the external cause; Y99.8 Other external cause status; K29.80 Duodenitis without bleeding; K20.90 Esophagitis, unspecified without bleeding; K29.50 Unspecified chronic gastritis without bleeding; K44.9 Diaphragmatic hernia without obstruction or gangrene; B96.81 Helicobacter pylori [H. pylori] as the cause of diseases classified elsewhere; I10 Essential (primary) hypertension; Z20.822 Contact with and (suspected) exposure to COVID-19; Z88.8 Allergy status to other drugs, medicaments and biological substances; Z79.899 Other long term (current) drug therapy
CPT/HCPCS: 43239; 36415; 71045; 71250; 80053; 85025; 85610; 87635; 88305; 88342; 96374; 96375; 96376; 99218; 99284; 99285; J0330; J1610; J2405; J3010

== ENCOUNTER 2022-08-18 11:24 | Outpatient (REF) | payer MEDICARE, OTHER, SELFPAY ==
[2022-08-18 11:34] LABS: MANUAL DIFF FLAG NO
[2022-08-18 11:42] LABS: Basophils Percent Auto 0.4 % (0-2); Eosinophils Absolute Auto 0.2 X10*3/uL (0.0-0.4); Eosinophils Percent Auto 2.6 % (0-4); Hematocrit 44.1 % (42.0-52.0); Hemoglobin 14.7 g/dl (14.0-18.0); Imm Gran Abs Auto 0.02 X10*3/uL (0.00-0.03); Imm Gran Pct Auto 0.3 % (0.0-0.4); Lymphocytes Absolute Auto 1.8 X10*3/uL (1.2-4.9); Lymphocytes Percent Auto 25.9 % (20-40); Mean Corpuscular HGB Conc 33.3 g/dl (31.0-36.0); Mean Corpuscular Hemoglobin 30.4 pg (27.0-33.0); Mean Corpuscular Volume 91.3 fL (80.0-98.0); Mean Platelet Volume 10.2 fL (9.4-12.4); Monocytes Absolute Auto 0.6 X10*3/uL (0.1-1.2); Monocytes Percent Auto 9.2 % (2-11); Neutrophils Absolute Auto 4.2 x10*3/uL (2.0-8.3); Neutrophils Percent Auto 61.6 % (45-73); Platelet Count 222 X10*3/uL (160-400); Red Blood Count 4.83 X10*6/uL (4.60-5.80); Red Cell Distribution Width 13.3 % (11.0-16.0); White Blood Count 6.9 X10*3/uL (4.8-10.8)
[2022-08-18 12:19] LABS: Alanine Aminotransferase 40 U/L (0-40); Albumin Level 4.3 g/dL (3.5-5.0); Alkaline Phosphatase 76 U/L (39-117); Anion Gap 12 (12-20); Aspartate Amino Transferase 24 U/L (5-37); Bilirubin Total 1.1 mg/dL (0.0-1.0); Blood Urea Nitrogen 16 mg/dL (9-16); Calcium 9.4 mg/dL (8.4-10.2); Carbon Dioxide 26 mmol/L (22-29); Chloride 106 mmol/L (96-108); Cholesterol 144 mg/dL; Estimated Glomerular Filt Rate > 60; Glucose Random 95 mg/dL (60-115); HDL Cholesterol 35 mg/dL; LDL Cholesterol Calculated 85 mg/dl; Potassium 4.3 mmol/L (3.3-5.1); Sodium 140 mmol/L (135-145); Triglycerides 121 mg/dL
== END 2022-08-18 11:25 | disposition home or self-care (01) ==
LOC: HO.LAB 11:24
PROVIDERS: PCP Internal Medicine; Visit Provider Internal Medicine
DX: Z00.00 Encounter for general adult medical examination without abnormal findings (principal); F10.20 Alcohol dependence, uncomplicated; I10 Essential (primary) hypertension; N40.0 Benign prostatic hyperplasia without lower urinary tract symptoms
CPT/HCPCS: 36415; 80053; 80061; 85025

== ENCOUNTER 2023-02-09 13:25 | Outpatient (REF) | payer MEDICARE, OTHER, SELFPAY ==
[2023-02-09 13:37] LABS: MANUAL DIFF FLAG NO
[2023-02-09 14:00] LABS: Basophils Percent Auto 0.4 % (0-2); Eosinophils Absolute Auto 0.1 X10*3/uL (0.0-0.4); Eosinophils Percent Auto 1.8 % (0-4); Hematocrit 44.4 % (42.0-52.0); Imm Gran Abs Auto 0.02 X10*3/uL (0.00-0.03); Imm Gran Pct Auto 0.4 % (0.0-0.4); Lymphocytes Absolute Auto 1.5 X10*3/uL (1.2-4.9); Lymphocytes Percent Auto 26.6 % (20-40); Mean Corpuscular HGB Conc 33.8 g/dl (31.0-36.0); Mean Corpuscular Hemoglobin 30.6 pg (27.0-33.0); Mean Corpuscular Volume 90.6 fL (80.0-98.0); Mean Platelet Volume 10.2 fL (9.4-12.4); Monocytes Absolute Auto 0.6 X10*3/uL (0.1-1.2); Monocytes Percent Auto 11.1 % (2-11); Neutrophils Absolute Auto 3.3 x10*3/uL (2.0-8.3); Neutrophils Percent Auto 59.7 % (45-73); Platelet Count 179 X10*3/uL (160-400); Red Cell Distribution Width 13.7 % (11.0-16.0); White Blood Count 5.5 X10*3/uL (4.8-10.8)
[2023-02-09 14:57] LABS: Alanine Aminotransferase 101 U/L (0-40); Albumin Level 4.3 g/dL (3.5-5.0); Alkaline Phosphatase 67 U/L (39-117); Anion Gap 11 (12-20); Aspartate Amino Transferase 65 U/L (5-37); Bilirubin Total 2.1 mg/dL (0.0-1.0); Blood Urea Nitrogen 13 mg/dL (9-16); Calcium 9.8 mg/dL (8.4-10.2); Carbon Dioxide 28 mmol/L (22-29); Chloride 106 mmol/L (96-108); Cholesterol 142 mg/dL; Estimated Glomerular Filt Rate 58; Glucose Random 93 mg/dL (60-115); HDL Cholesterol 52 mg/dL; LDL Cholesterol Calculated 70 mg/dl; Potassium 4.4 mmol/L (3.3-5.1); Sodium 141 mmol/L (135-145); Triglycerides 103 mg/dL
[2023-02-09 15:11] LABS: Prostate Specific Antigen 1.46 ng/mL (<0.05-4.0)
== END 2023-02-09 13:26 | disposition home or self-care (01) ==
LOC: HO.LAB 13:25
PROVIDERS: PCP Internal Medicine; Visit Provider Internal Medicine
DX: E78.00 Pure hypercholesterolemia, unspecified (principal); F10.20 Alcohol dependence, uncomplicated; I10 Essential (primary) hypertension; N40.0 Benign prostatic hyperplasia without lower urinary tract symptoms; Z12.5 Encounter for screening for malignant neoplasm of prostate
CPT/HCPCS: 36415; 80053; 80061; 84153; 85025

== ENCOUNTER 2023-08-11 12:24 | Outpatient (REF) | payer MEDICARE, OTHER, SELFPAY ==
[2023-08-11 13:38] LABS: Alanine Aminotransferase 39 U/L (0-40); Albumin Level 4.4 g/dL (3.5-5.0); Alkaline Phosphatase 66 U/L (39-117); Anion Gap 9 (12-20); Aspartate Amino Transferase 28 U/L (5-37); Blood Urea Nitrogen 19 mg/dL (9-16); Calcium 9.8 mg/dL (8.4-10.2); Carbon Dioxide 29 mmol/L (22-29); Chloride 107 mmol/L (96-108); Estimated Glomerular Filt Rate > 60; Glucose Random 112 mg/dL (60-115); Potassium 4.1 mmol/L (3.3-5.1); Sodium 141 mmol/L (135-145); Total Protein 7.3 g/dL (6.5-8.0)
[2023-08-12 08:43] LABS: HBS Num1 0.24 mIU/mL (0-7.99); ~HepC Num1 0.14 S/CO (0.00-0.79); ~Hepatitis B Surface Antibody NONREACTIVE (Nonreactive); ~Hepatitis C Antibody Nonreactive (Nonreactive)
== END 2023-08-11 12:25 | disposition home or self-care (01) ==
LOC: HO.LAB 12:24
PROVIDERS: PCP Internal Medicine; Visit Provider Internal Medicine
DX: B35.1 Tinea unguium (principal); E78.00 Pure hypercholesterolemia, unspecified; I10 Essential (primary) hypertension; R74.01 Elevation of levels of liver transaminase levels
CPT/HCPCS: 36415; 80053; 86706; 86803

== ENCOUNTER 2024-11-16 13:43 | Emergency (ER) | payer MEDICARE, SELFPAY ==
[2024-11-16 14:03] VITALS: BP 145/72; PULSE 68; RESP 18; TEMP 36.2; O2SAT 96; BMI 32.6
--- NOTE | 2024-11-16 14:07 | ED_ITS ---
HPI - General Adult General Chief complaint: General Medical Stated complaint: Ran Out Of Medication- Blood Pressure and Prostate Time Seen by Provider: 11/16/24 14:07 Source: patient Limitations: no limitations History of Present Illness ED Provider: Eun Alonzo PA-C HPI narrative: 69-year-old male is here to request medication refills. Patient states he is currently in between primary care providers, he is actively searching for a new PCP. Related Data Home Medications ?Medication ?Instructions ?Recorded ?Confirmed etanercept 25 mg/0.5 mL (0.5 mL) 25 mg subcut 2XW 09/12/20 08/13/21 subcutaneous syringe sulfasalazine 500 mg tablet 500 mg PO DAILY 03/14/21 08/13/21 Previous Rx's ?Medication ?Instructions ?Recorded mometasone 0.1 % topical cream 1 appl topical DAILY #45 grams 04/10/21 omeprazole magnesium 20 mg 20 mg PO BID #60 tabs 08/13/21 tablet,delayed release (Prilosec OTC) sucralfate 1 gram tablet (Carafate) 1 g PO BID #28 tabs 08/13/21 allopurinol 100 mg tablet 200 mg (2 x 100 mg) PO DAILY #60 11/16/24 tabs amitriptyline 10 mg tablet 20 mg (2 x 10 mg) PO BEDTIME #60 11/16/24 tabs amitriptyline 10 mg tablet 20 mg (2 x 10 mg) PO DAILY #90 tabs 11/16/24 amlodipine 5 mg tablet 5 mg PO DAILY #30 tabs 11/16/24 amlodipine 5 mg tablet 5 mg PO DAILY #30 tabs 11/16/24 atenolol 100 mg tablet 100 mg PO DAILY #30 tabs 11/16/24 atenolol 100 mg tablet 100 mg PO DAILY #30 tabs 11/16/24 erythromycin with ethanol 2 % 1 appl topical BID #60 mL 11/16/24 topical solution erythromycin with ethanol 2 % 1 appl topical BID PRN Rash 30 11/16/24 topical solution days #60 mL finasteride 5 mg tablet 5 mg PO DAILY #30 tabs 11/16/24 finasteride 5 mg tablet 5 mg PO DAILY #30 tabs 11/16/24 hydroxychloroquine 200 mg tablet 200 mg PO BID #60 tabs 11/16/24 hydroxychloroquine 200 mg tablet 200 mg PO BID #60 tabs 11/16/24 tamsulosin 0.4 mg capsule 0.4 mg PO BEDTIME #30 caps 11/16/24 tamsulosin 0.4 mg capsule 0.4 mg PO DAILY #30 caps 11/16/24 triamcinolone acetonide 0.5 % 1 appl topical BID #15 grams 11/16/24 topical cream Allergies Allergy/AdvReac Type Severity Reaction Status Date / Time methotrexate [METHOTREXATE] Allergy Unknown NAUSEA Verified 11/16/24 14:03 Review of Systems Review of Systems: Yes all other systems are reviewed and are negative Constitutional: Constitutional: Denies fatigue and Denies fever(s) Cardiovascular: Cardiovascular: Denies chest pain and Denies dyspnea Respiratory: Respiratory: Denies dyspnea Gastrointestinal: Gastrointestinal: Denies abdominal pain Endocrine: Endocrine: Denies fatigue [facility] Past Medical History Attestation statement: The following information was validated with the patient. Medical History (Updated 11/16/24 @ 14:16 by JUAN Lamar) Rheumatoid arthritis Sleep apnea Hypertension Surgical History H/O colonoscopy History of facial surgery History of cholecystectomy History of appendectomy Family History Family History Father Alzheimers disease Mother Pyelonephritis Family/Other Prostate cancer Breast cancer Polymyalgia rheumatica Social History Social History Household Members Other:: single Are you a primary inspector health care facilities to a significant other at home: No Do you presently have visiting nurse or other home services: No Patient Tobacco Use Status: Former Tobacco user Second Hand Smoke Exposure: No Advance Directives: No Advance Directives Information Provided: Yes Current occupational status: disabled Physical Exam ED Vital Signs: Vital Signs - 24 hr 11/16/24 14:03 Temperature 97.2 F Pulse Rate 68 Respiratory Rate 18 Blood Pressure 145/72 H Pulse Oximetry 96 Oxygen Delivery Method Room Air BMI result Body Mass Index 32.6 Const Other: Alert Orientation/consciousness: patient oriented x3 Resp Effort & Inspection: normal respiratory effort Cardio Other: Normal peripheral perfusion Skin Other: Warm dry no rash Neuro General: patient oriented x3, gait normal, no focal motor deficits and CN's II- XI intact bilaterally Psych Other: Calm cooperative Medical Decision Making Medical Decision Making MDM Narrative: 69-year-old male is here to request medication refills. Patient states he is currently in between primary care providers, he is actively searching for a new PCP. Patient has a list of his medications we will refill Discharge Plan Discharge Clinical Impression: Encounter for medication refill Patient Disposition: Home, Self-Care Additional Instructions: Take your prescribed medications as directed. Prescriptions: New allopurinol 100 mg tablet 200 mg PO DAILY Qty: 60 0RF amitriptyline 10 mg tablet 20 mg PO BEDTIME Qty: 60 0RF amlodipine 5 mg tablet 5 mg PO DAILY Qty: 30 0RF atenolol 100 mg tablet 100 mg PO DAILY Qty: 30 0RF erythromycin with ethanol 2 % solution 1 appl topical BID Qty: 60 0RF finasteride 5 mg tablet 5 mg PO DAILY Qty: 30 0RF tamsulosin 0.4 mg capsule 0.4 mg PO BEDTIME Qty: 30 0RF triamcinolone acetonide 0.5 % cream 1 appl topical BID Qty: 15 0RF hydroxychloroquine 200 mg tablet 200 mg PO BID Qty: 60 0RF Continued tamsulosin 0.4 mg capsule 0.4 mg PO DAILY Qty: 30 0RF amitriptyline 10 mg tablet 20 mg PO DAILY Qty: 90 8RF hydroxychloroquine 200 mg tablet 200 mg PO BID Qty: 60 0RF finasteride 5 mg tablet 5 mg PO DAILY Qty: 30 8RF erythromycin with ethanol 2 % solution 1 appl topical BID PRN (Reason: Rash) 30 Days Qty: 60 0RF Changed atenolol 100 mg tablet 100 mg PO DAILY Qty: 30 0RF amlodipine 5 mg tablet 5 mg PO DAILY Qty: 30 0RF No Action etanercept 25 mg/0.5 mL (0.5) syringe 25 mg subcut 2XW mometasone 0.1 % cream 1 appl topical DAILY Qty: 45 8RF omeprazole magnesium [Prilosec OTC] 20 mg tablet,delayed release (DR/EC) 20 mg PO BID Qty: 60 0RF sucralfate [Carafate] 1 gram tablet 1 g PO BID Qty: 28 0RF sulfasalazine 500 mg tablet 500 mg PO DAILY Print Language: [place] Zealander
[2024-11-16 15:04] VITALS: BP 145/72; PULSE 68; RESP 18; TEMP 36.2; O2SAT 96
== END 2024-11-16 15:04 | disposition home or self-care (01) ==
PROVIDERS: Emergency Provider Emergency Medicine
DX: Z76.0 Encounter for issue of repeat prescription (principal); Z79.899 Other long term (current) drug therapy; Z87.891 Personal history of nicotine dependence
CPT/HCPCS: 99282

== ENCOUNTER 2024-12-22 13:27 | Emergency (ER) | payer MEDICARE, SELFPAY ==
[2024-12-22 13:38] VITALS: BP 122/69; PULSE 61; RESP 16; TEMP 37.2; O2SAT 95; BMI 32.4
--- NOTE | 2024-12-22 13:38 | ED.MEDCLEAR ---
HPI - Medical Clearance General Chief complaint: Medical Clearance Stated complaint: Refill Prescription Time Seen by Provider: 12/22/24 13:43 Source: patient, RN notes reviewed and old records reviewed Mode of arrival: ambulatory History of Present Illness ED Provider: Elissa Stanley PA-C HPI Narrative: 69-year-old male with a past medical history of RA, sleep apnea, HTN, presenting to the ED requesting medication refills. States he does not currently have a PCP, is working on getting a new one. Last took all his medications this morning. Related Information Home Medications ?Medication ?Instructions ?Recorded ?Confirmed etanercept 25 mg/0.5 mL (0.5 mL) 25 mg subcut 2XW 09/12/20 08/13/21 subcutaneous syringe sulfasalazine 500 mg tablet 500 mg PO DAILY 03/14/21 08/13/21 Previous Rx's ?Medication ?Instructions ?Recorded mometasone 0.1 % topical cream 1 appl topical DAILY #45 grams 04/10/21 omeprazole magnesium 20 mg 20 mg PO BID #60 tabs 08/13/21 tablet,delayed release (Prilosec OTC) sucralfate 1 gram tablet (Carafate) 1 g PO BID #28 tabs 08/13/21 allopurinol 100 mg tablet 200 mg (2 x 100 mg) PO DAILY #60 11/16/24 tabs amitriptyline 10 mg tablet 20 mg (2 x 10 mg) PO BEDTIME #60 11/16/24 tabs amitriptyline 10 mg tablet 20 mg (2 x 10 mg) PO DAILY #90 tabs 11/16/24 amlodipine 5 mg tablet 5 mg PO DAILY #30 tabs 11/16/24 amlodipine 5 mg tablet 5 mg PO DAILY #30 tabs 11/16/24 atenolol 100 mg tablet 100 mg PO DAILY #30 tabs 11/16/24 atenolol 100 mg tablet 100 mg PO DAILY #30 tabs 11/16/24 erythromycin with ethanol 2 % 1 appl topical BID #60 mL 11/16/24 topical solution erythromycin with ethanol 2 % 1 appl topical BID PRN Rash 30 11/16/24 topical solution days #60 mL finasteride 5 mg tablet 5 mg PO DAILY #30 tabs 11/16/24 finasteride 5 mg tablet 5 mg PO DAILY #30 tabs 11/16/24 hydroxychloroquine 200 mg tablet 200 mg PO BID #60 tabs 11/16/24 hydroxychloroquine 200 mg tablet 200 mg PO BID #60 tabs 11/16/24 tamsulosin 0.4 mg capsule 0.4 mg PO BEDTIME #30 caps 11/16/24 tamsulosin 0.4 mg capsule 0.4 mg PO DAILY #30 caps 11/16/24 triamcinolone acetonide 0.5 % 1 appl topical BID #15 grams 11/16/24 topical cream allopurinol 100 mg tablet 100 mg PO BID 30 days #60 tabs 12/22/24 amitriptyline 10 mg tablet 20 mg (2 x 10 mg) PO BEDTIME 30 12/22/24 days #60 tabs amlodipine 5 mg tablet 5 mg PO DAILY 30 days #30 tabs 12/22/24 atenolol 100 mg tablet 100 mg PO DAILY 30 days #30 tabs 12/22/24 erythromycin with ethanol 2 % 1 appl topical BID #60 mL 12/22/24 topical solution etanercept 25 mg/0.5 mL (0.5 mL) 25 mg (0.5 mL) subcut 2XW 30 days 12/22/24 subcutaneous syringe (Enbrel) #4.5 mL finasteride 5 mg tablet 5 mg PO DAILY 30 days #30 tabs 12/22/24 hydroxychloroquine 200 mg tablet 200 mg PO BID 30 days #60 tabs 12/22/24 ibuprofen 600 mg tablet 600 mg PO Q8H PRN fever or pain 30 12/22/24 days #30 tabs sulfasalazine 500 mg tablet 0.5 g PO TID 30 days #90 tabs 12/22/24 tamsulosin 0.4 mg capsule 0.4 mg PO BEDTIME 30 days #30 caps 12/22/24 triamcinolone acetonide 0.5 % 1 appl topical BID #15 grams 12/22/24 topical cream Allergies Allergy/AdvReac Type Severity Reaction Status Date / Time methotrexate [METHOTREXATE] Allergy Unknown NAUSEA Verified 12/22/24 13:41 Review of Systems Review of Systems: Yes all other systems are reviewed and are negative Constitutional: Constitutional: Reports as per [facility] Past Medical History Attestation statement: The following information was validated with the patient. Source: old records reviewed Medical History Rheumatoid arthritis Sleep apnea Hypertension Surgical History H/O colonoscopy History of facial surgery History of cholecystectomy History of appendectomy Family History Family History Father Alzheimers disease Mother Pyelonephritis Family/Other Prostate cancer Breast cancer Polymyalgia rheumatica Social History Social History Household Members Other:: single Are you a primary child care sitter to a significant other at home: No Do you presently have visiting nurse or other home services: No Patient Tobacco Use Status: Former Tobacco user Second Hand Smoke Exposure: No Current occupational status: disabled Physical Exam Vital Signs: Vital Signs: Last Vital Signs Temp 99.0 F 12/22/24 13:38 Pulse 61 12/22/24 13:38 Resp 16 12/22/24 13:38 BP 122/69 12/22/24 13:38 Pulse Ox 95 12/22/24 13:38 O2 Del Method Room Air 12/22/24 13:38 BMI result Body Mass Index 32.4 Const: General: cooperative, healthy appearing and no acute distress Orientation/consciousness: patient oriented x3 Limitations: no limitations HEENT: Head: Yes normal to inspection and Yes atraumatic Ears: hearing grossly normal bilaterally General nose exam: Normal external nose present Face and sinus: Yes normal facial exam Eyes: General: appearance normal, both eyes and all related structures EOM: EOMs intact bilaterally Neck: Neck: Yes normal visual inspection and Yes no meningeal signs Resp: Effort & Inspection: normal respiratory effort and no respiratory distress Cardio: Rate: regular rate Skin: Rashes: no rashes Wounds: no wounds Neuro: General: patient oriented x3, tone normal and no meningeal signs Cranial nerves: Yes CN's II-XII intact bilaterally Gait exam (Neuro): Normal gait present Extrem: General: Yes normal to inspection Medical Decision Making Medical Decision Making MDM Narrative: 69-year-old male with a past medical history of RA, sleep apnea, HTN, presenting to the ED requesting medication refills. On exam vital signs stable, NAD, nontoxic appearing, requesting medication refill. Discussed need to establish care with PCP Please refer to course for remaining clinical decision making, interpretation of labs/imaging results, and discussions with consultants and/or family members. Results discussed with patient including worrisome signs and symptoms and strict return precautions, and when to return to the emergency department. They verbalized understanding and feel safe for discharge at this time. Differential Diagnosis Differential Diagnoses: The differential diagnosis associated with the presentation includes As above External Record Review External record reviewed: Inpatient record, Office record, Outpatient record, Prior outpatient labs, Prior outpatient radiology, Primary care record and Outside ED record Tests considered The following testing was considered but not selected: As above Prescription Management I considered prescription management with: Other Chronic Conditions Patient?s care impacted by: Other Social Determinants Patient?s care significantly limited by Social Determinants of Health including: Other Social Determinant of Health Discharge Plan Discharge Clinical Impression: Medication refill Patient Disposition: Home, Self-Care Instructions: Medicine Refill (ED) Additional Instructions: Your medications were refilled. You need to establish care with a primary care doctor Please continue taking all prescribed medications Prescriptions: New allopurinol 100 mg tablet 100 mg PO BID 30 Days Qty: 60 0RF amitriptyline 10 mg tablet 20 mg PO BEDTIME 30 Days Qty: 60 0RF amlodipine 5 mg tablet 5 mg PO DAILY 30 Days Qty: 30 0RF atenolol 100 mg tablet 100 mg PO DAILY 30 Days Qty: 30 0RF Enbrel 25 mg/0.5 mL (0.5) syringe 25 mg subcut 2XW 30 Days Qty: 4.5 0RF finasteride 5 mg tablet 5 mg PO DAILY 30 Days Qty: 30 0RF hydroxychloroquine 200 mg tablet 200 mg PO BID 30 Days Qty: 60 0RF ibuprofen 600 mg tablet 600 mg PO Q8H PRN (Reason: fever or pain) 30 Days Qty: 30 0RF sulfasalazine 500 mg tablet 0.5 g PO TID 30 Days Qty: 90 0RF Rx Instructions: give with food (meal/snack) tamsulosin 0.4 mg capsule 0.4 mg PO BEDTIME 30 Days Qty: 30 0RF triamcinolone acetonide 0.5 % cream 1 appl topical BID Qty: 15 0RF erythromycin with ethanol 2 % solution 1 appl topical BID Qty: 60 0RF No Action etanercept 25 mg/0.5 mL (0.5) syringe 25 mg subcut 2XW mometasone 0.1 % cream 1 appl topical DAILY Qty: 45 8RF omeprazole magnesium [Prilosec OTC] 20 mg tablet,delayed release (DR/EC) 20 mg PO BID Qty: 60 0RF sucralfate [Carafate] 1 gram tablet 1 g PO BID Qty: 28 0RF atenolol 100 mg tablet 100 mg PO DAILY Qty: 30 0RF amlodipine 5 mg tablet 5 mg PO DAILY Qty: 30 0RF tamsulosin 0.4 mg capsule 0.4 mg PO DAILY Qty: 30 0RF amitriptyline 10 mg tablet 20 mg PO DAILY Qty: 90 8RF hydroxychloroquine 200 mg tablet 200 mg PO BID Qty: 60 0RF finasteride 5 mg tablet 5 mg PO DAILY Qty: 30 8RF erythromycin with ethanol 2 % solution 1 appl topical BID PRN (Reason: Rash) 30 Days Qty: 60 0RF allopurinol 100 mg tablet 200 mg PO DAILY Qty: 60 0RF amitriptyline 10 mg tablet 20 mg PO BEDTIME Qty: 60 0RF amlodipine 5 mg tablet 5 mg PO DAILY Qty: 30 0RF atenolol 100 mg tablet 100 mg PO DAILY Qty: 30 0RF erythromycin with ethanol 2 % solution 1 appl topical BID Qty: 60 0RF finasteride 5 mg tablet 5 mg PO DAILY Qty: 30 0RF tamsulosin 0.4 mg capsule 0.4 mg PO BEDTIME Qty: 30 0RF triamcinolone acetonide 0.5 % cream 1 appl topical BID Qty: 15 0RF hydroxychloroquine 200 mg tablet 200 mg PO BID Qty: 60 0RF sulfasalazine 500 mg tablet 500 mg PO DAILY Referrals: [facility] Community Navigation [Provider Group] [facility] Family Medicine [Provider Group] [facility] Primary [facility] [Provider Group] [facility] Primary [facility] [Provider Group] Print Language: Slovak
[2024-12-22 14:21] VITALS: BP 122/69; PULSE 61; RESP 16; TEMP 37.2; O2SAT 95
--- OUTSIDE RECORDS SUMMARY | 2024-12-22 16:48 | XMS_ITS | Encounter Summary ---
Author Organization [employer] Address [address] [facility] 7 [place] [address] Care Team Providers Care Weighmaster Lead Name Role Phone Unavailable Primary Care Provider Unavailabl e Reason for Visit * Reason Comments Dentures Encounter Details Date Type Department Care Team (Late st Contact Info) Description 12/21/2024 3:30 PM EDT Office Visit [facility] [address] [place] [address] Celia Regan DDS [address] [place] [address] Edentulism (Primary Dx) Social History Tobacco Use Types Packs/Day Years Used Date Smoking Tobacco: Former Cigarettes Smokeless Tobacco: Never Alcohol Use Standard Drinks/Week Comments Yes 0 (1 standard drink = 0.6 oz pur e alcohol) Sex and Gender Information Value Date Recorded Sex Assigned at Male 06/30/2022 10:39 AM EDT Legal Sex Male 10:39 AM EDT Gender Identity Male 06/30/2022 10:39 AM EDT Sexual Orientation Choose not to disclose 2021 10:39 AM EDT documented as of this encounter Progress Notes * Celia Regan DDS - 12/21/2024 3:30 PM EDT Patient ID: Jay Mcgregor is a 69 y.o. male. Time Out: Timeout Date: 12/21/24, Timeout Time: 1521 (Time out for denture delivery) Location: [facility] Tooth: Maxilla and Mandible Procedure: Dentures delivery Verified the above with patient, insurance sales assistant, and provider. Confirmed via patient's chart, intraorally and by radiographs. [employer] Travel Counselor: not applicable Chief Complaint Patient presents with Dentures Medical Hx: Vitals: There were no vitals taken for this visit. Medications, Med Hx reviewed with patient and updated in chart. Consent Obtained: The risks, benefits, indications, potential complications, and alternatives were explained to the patient and informed consent was obtained with good understanding. Treatment Provided: Dental procedures in this visit D5110 - COMPLETE DENTURE - MAXILLARY Max (Completed) Service provider: Celia Regan DDS Billing provider: Celia Regan DDS [id number] - COMPLETE DENTURE - MANDIBULAR Fernie (Completed) Service provider: Celia Regan DDS Billing provider: Celia Regan DDS Tried in denture(s) -Evaluated for comfort, fit, phonetics, and stability (f, v, s, th sounds; swallow, yawn, etc) -Evaluated for satisfactory esthetics. -Occlusion verified; adjustments made as necessary. Patient has received information sheet for denture care and expectations. Pt was provided with denture case and denture brush. NV: 6 mo periodic exam Billet Header: Chinyere Lyons Dentist: Celia Regan DDS documented in this encounter Plan of Treatment Not on file documented as of this encounter Procedures Procedure Name Priority Date/Time Associated Diagnosis Comments Max COMPLETE DENTURE - MAXILLARY Routine 12/21/2024 3:30 PM EDT Edentulism Fernie COMPLETE DENTURE - MANDIBULAR Routine 12/21/2024 3:30 PM EDT Edentulism documented in this encounter Visit Diagnoses Diagnosis Edentulism- Primary documented in this encounter
--- OUTSIDE RECORDS SUMMARY | 2024-12-22 16:48 | XMS_ITS | Encounter Summary ---
Author Organization [employer] Address [address] [facility] 7 [place] [address] Care Team Providers Care Infection Control Rn Name Role Phone Unavailable Primary Care Provider Unavailabl e Reason for Visit * Reason Onset Date Comments consulation dentures 09/27/2024 Encounter Details Date Type Department Care Team (Late st Contact Info) Description 09/27/2024 Telephone [facility] [address] [place] [address] Celia Regan, DDS [address] [place] [address] consulation dentures Social History Tobacco Use Types Packs/Day Years [...] AM EDT documented as of this encounter Miscellaneous Notes * Telephone Encounter - Arline Desai - 09/27/2024 11:54 AM EST consultation for dentures/patient got immediate dentures in [facility] but they no longer accept his insurance. He is looking for the regular dentures . Confrimed with lockstitch front edge tape sewer can provide appt for consulation DR documented in this encounter Plan of Treatment Not on file documented as of this encounter Visit Diagnoses Not on filedocumented in this encounter
--- OUTSIDE RECORDS SUMMARY | 2024-12-22 16:48 | XMS_ITS | Clinical Summary ---
Author Organization [employer] Address [address] [facility] [address] [place] [address] Care Team Providers Care Director Of Cardiology Service Line Name Role Phone Unavailable Primary Care Provider Unavaildennis e Allergies Active Allergy Reactions Criticality Noted Date Comments Methotrexate Nausea 10/12/2023 Medications allopurinol (Zyloprim) 100 MG tablet Take 200 mg by mouth in the morning. 3 Active amitriptyline (Elavil) 10 MG tablet TAKE 2 TABLETS BY MOUTH EVERY DAY AT BEDTIME 3 Active amLODIPine (Norvasc) 5 MG tablet Take 5 mg by mouth in the morning. 3 Active atenolol (Tenormin) 100 MG tablet Take 100 mg by mouth in the morning. 3 Active Enbrel 25 MG/0.5ML injection INJECT 25 MG TWICE A WEEK 3 Active finasteride (Proscar) 5 MG tablet Take 5 mg by mouth in the morning. 3 Active hydroxychloroqui ne (Plaquenil) 200 MG tablet 3 Active ibuprofen 600 MG tablet TAKE 1 TABLET BY MOUTH UP TO THREE TIMES DAILY NEEDED FOR PAIN 4 Active sulfaSALAzine (Azulfidine) 500 MG tablet TAKE 1 TABLET BY MOUTH THREE TIMES DAILY WITH FOOD 3 Active tamsulosin (Flomax) 0.4 MG 24 hr capsule Take 0.4 mg by mouth at bedtime. 3 Active triamcinolone (Kenalog) 0.5 % cream APPLY TO THE AFFECTED AREA(S) TWICE DAILY 3 Active ciclopirox (Loprox) 0.77 % cream APPLY TO THE AFFECTED AREA(S) TWICE DAILY 3 Active erythromycin with Ethanol (Theramycin) 2 % external solution APPLY TO THE AFFECTED AREA(S) TWICE DAILY DIRECTED 3 Active acetaminophen (Tylenol) 500 MG tabletIndication s:History of tooth extraction, unspecified edentulism class Take 1 tablet (500 mg) by mouth every 6 (six) hours if needed for mild pain for up to 20 doses. 20 tablet 4 Active Active Problems No known active problems Encounters Date Type Department Care Team Description 12/21/2024 3:30 PM EDT Office Visit [facility] [address] [facility] [place] [address] Celia Regan DDS Edentulism (Primary Dx) 12/14/2024 3:30 PM EDT Office Visit [facility] [address] [facility] [place] [address] Celia Regan DDS 12/12/2024 3:30 PM EDT Office Visit [facility] [address] [facility] [place] [address] Celia Regan DDS Edentulism (Primary Dx) 11/28/2024 Telephone [facility] [address] [place] [address] Nilo Duncan MD New patient appt. 11/11/2024 Telephone [facility] [address] [facility] [place] [address] Celia Regan DDS 10/19/2024 9:30 AM EST Office Visit [facility] [address] [facility] [place] [address] Celia Regan DDS Encounter for dental examination (Primary Dx); Edentulism 09/27/2024 Telephone [facility] [place] [address] Celia Regan DDS consulation dentures from Last 3 Months Immunizations Name Administration Dates Next Due Influenza High-dose Quadriva lent Preservative Free 06/04/2023,06/09/2022 Influenza Quadrivalent Adjuvanted 06/03/2020 Influenza injectable quadriv alent IIV4 with preservative 05/11/2018,05/13/2017 Influenza injectable quadriv alent preservative free 05/23/2018 Influenza, High Dose Seasona l, Preservative Free 05/09/2019 Influenza, IIV3, injectable 05/11/2010 Influenza, seasonal, injecta ble, preservative free 05/23/2021,05/22/2016 Influenza, trivalent, adjuvanted 05/10/2021 Moderna Covid-19 Vaccine 12+ 07/11/2021,12/11/19 21 Pfizer Covid-19 Vaccine 12+ 06/18/2023 Pneumococcal Polysaccharide PPSV23 03/10/2022,,10/11/2014 Tdap 03/10/2022 Zoster, Recombinant 05/12/2022,03/10/2022 Social History Tobacco Use Types Packs/Day Years Used Date Smoking Tobacco: Former Cigarettes Smokeless Tobacco: Never Tobacco Cessation:Counseling Given: Not Answered Alcohol Use Standard Drinks/Week Comments Yes 0 (1 standard drink = 0.6 oz pur e alcohol) Sex and Gender Information Value Date Recorded Sex Assigned at Male 06/30/2022 10:39 AM EDT Legal Sex Male 10:39 AM EDT Gender Identity Male 06/30/2022 10:39 AM EDT Sexual Orientation Choose not to disclose 2021 10:39 AM EDT Last Filed Vital Signs Vital Sign Reading Time Taken Comments Blood Pressure 130/86 10/19/2024 9:28 AM EST Pulse 69 10/12/2023 10:26 AM EST Temperature - - Respiratory Rate - - Oxygen Saturation - - Inhaled Oxygen Concentration - - Weight - - Height - - Body Mass Index - - Plan of Treatment Health Maintenance Due Date Last Done Comments CT Colonography 1954 Colonoscopy 1954 Colorectal Cancer Screening 1954 Dental Prophylaxis 1954 Depression Screening 1954 FIT DNA/Cologuard 1954 FIT 1954 FOBT 1954 Lipid Panel 1954 SDOH Screening 1954 Sigmoidoscopy 1954 Alcohol/Substance Use Screening 1966 Hepatitis C Screening 01/27/1972 Pneumococcal Vaccine: 50+ Years (2 of 2 - PCV) 03/10/2023 03/10/2022, 11/05/2015, 10/11/2014 COVID-19 Vaccine ( season) 2024 06/18/2023, 06/17/2022, 12/17/2021, Additional history exists Influenza Vaccine (#1) 2024 , 06/09/2022, 05/23/2021, Additional history exists Dental X-Ray: Bitewings 09/22/2024 09/21/2023 Dental Oral Exam 04/19/2025 10/19/2024, 09/21/2023 Tobacco Screening 12/21/2025 12/21/2024 Dental X-Ray: Full Mouth 10/20/2027 10/19/2024, 09/01 RSV Patients and Patients Aged 60 years or older (1 - 1-dose 75+ series) 2029 DTaP/Tdap/Td Vaccines (2 - Td or Tdap) 03/10/2032 03/10/2022 Zoster Vaccines Completed 05/12/2022, 03/10/2022 HIB Vaccines Aged Out No longer eligi ble based on patient's age to complete this topic HPV Vaccines Aged Out No longer eligi ble based on patient's age to complete this topic Hepatitis A Vaccines Aged Out No long er eligible based on patient's age to complete this topic Hepatitis B Vaccines Aged Out No long er eligible based on patient's age to complete this topic IPV Vaccines Aged Out No longer eligi ble based on patient's age to complete this topic Meningococcal Vaccine Aged Out No emilia marlyn eligible based on patient's age to complete this topic RSV under 20 months Aged Out No longe r eligible based on patient's age to complete this topic Rotavirus Vaccines Aged Out No longer eligible based on patient's age to complete this topic Procedures Procedure Name Priority Date/Time Associated Diagnosis Comments Fernie COMPLETE DENTURE - MANDIBULAR Routine 12/21/2024 3:30 PM EDT Edentulism Max COMPLETE DENTURE - MAXILLARY Routine 12/21/2024 3:30 PM EDT Edentulism NO CHARGE VISIT Routine 12/14/2024 3:30 PM EDT DENTURE IMPRESSION Routine 12/12/2024 3: 30 PM EDT Edentulism PERIODIC ORAL EVALUATION - ESTABLISHED PATIENT Routine 10/19/2024 9:30 AM EST Encounter for dental examination Edentulism CASE PRESENTATION, DETAILED AND EXTENSIVE TREATMENT PLANNING Routine 10/19/2024 9:30 AM EST Encounter for dental examination Edentulism PANORAMIC RADIOGRAPHIC IMAGE Routine 10/19/2024 9:30 AM EST Encounter for dental examination Edentulism INTRAORAL - COMPLETE SERIES OF RADIOGRAPHIC IMAGES Routine 09/21/2023 8:00 AM EST Dental caries Excessive dental attrition Partial edentulism, class III from Last 3 Months or Most Recently Relevant to Health Maintenance Insurance [facility] [facility] SNP
== END 2024-12-22 14:22 | disposition home or self-care (01) ==
PROVIDERS: Emergency Provider Emergency Medicine
DX: Z76.0 Encounter for issue of repeat prescription (principal); I10 Essential (primary) hypertension; M06.9 Rheumatoid arthritis, unspecified; G47.30 Sleep apnea, unspecified
CPT/HCPCS: 99282

== ENCOUNTER 2025-02-08 15:25 | Emergency (ER) | payer MEDICARE, SELFPAY ==
[2025-02-08 16:34] VITALS: BP 141/64; PULSE 69; RESP 18; TEMP 36.8; O2SAT 99; BMI 32.5
--- NOTE | 2025-02-08 16:38 | ED.GENADULT ---
HPI - General Adult General Chief complaint: General Medical Stated complaint: Med refill Time Seen by Provider: 02/08/25 16:38 Source: patient Mode of arrival: ambulatory Limitations: no limitations History of Present Illness ED Provider: Roger Stanley HPI narrative: 70 yold with pmh of gastrititis, alcohol use, rheumatoid arterititis, HTN, tubular adneoma colon presents to the ED FOR MEDICATION REFILl. Patient states he does not have an appointment with new PCP until Jaden. Patient states no physical complaint. Related Data Home Medications ?Medication ?Instructions ?Recorded ?Confirmed etanercept 25 mg/0.5 mL (0.5 mL) 25 mg subcut 2XW 09/12/20 08/13/21 subcutaneous syringe sulfasalazine 500 mg tablet 500 mg PO DAILY 03/14/21 08/13/21 Previous Rx's ?Medication ?Instructions ?Recorded mometasone 0.1 % topical cream 1 appl topical DAILY #45 grams 04/10/21 omeprazole magnesium 20 mg 20 mg PO BID #60 tabs 08/13/21 tablet,delayed release (Prilosec OTC) sucralfate 1 gram tablet (Carafate) 1 g PO BID #28 tabs 08/13/21 allopurinol 100 mg tablet 200 mg (2 x 100 mg) PO DAILY #60 11/16/24 tabs amitriptyline 10 mg tablet 20 mg (2 x 10 mg) PO BEDTIME #60 11/16/24 tabs amitriptyline 10 mg tablet 20 mg (2 x 10 mg) PO DAILY #90 tabs 11/16/24 amlodipine 5 mg tablet 5 mg PO DAILY #30 tabs 11/16/24 amlodipine 5 mg tablet 5 mg PO DAILY #30 tabs 11/16/24 atenolol 100 mg tablet 100 mg PO DAILY #30 tabs 11/16/24 atenolol 100 mg tablet 100 mg PO DAILY #30 tabs 11/16/24 erythromycin with ethanol 2 % 1 appl topical BID #60 mL 11/16/24 topical solution erythromycin with ethanol 2 % 1 appl topical BID PRN Rash 30 11/16/24 topical solution days #60 mL finasteride 5 mg tablet 5 mg PO DAILY #30 tabs 11/16/24 finasteride 5 mg tablet 5 mg PO DAILY #30 tabs 11/16/24 hydroxychloroquine 200 mg tablet 200 mg PO BID #60 tabs 11/16/24 hydroxychloroquine 200 mg tablet 200 mg PO BID #60 tabs 11/16/24 tamsulosin 0.4 mg capsule 0.4 mg PO BEDTIME #30 caps 11/16/24 tamsulosin 0.4 mg capsule 0.4 mg PO DAILY #30 caps 11/16/24 triamcinolone acetonide 0.5 % 1 appl topical BID #15 grams 11/16/24 topical cream allopurinol 100 mg tablet 100 mg PO BID 30 days #60 tabs 12/22/24 amitriptyline 10 mg tablet 20 mg (2 x 10 mg) PO BEDTIME 30 12/22/24 days #60 tabs amlodipine 5 mg tablet 5 mg PO DAILY 30 days #30 tabs 12/22/24 atenolol 100 mg tablet 100 mg PO DAILY 30 days #30 tabs 12/22/24 erythromycin with ethanol 2 % 1 appl topical BID #60 mL 12/22/24 topical solution etanercept 25 mg/0.5 mL (0.5 mL) 25 mg (0.5 mL) subcut 2XW 30 days 12/22/24 subcutaneous syringe (Enbrel) #4.5 mL finasteride 5 mg tablet 5 mg PO DAILY 30 days #30 tabs 12/22/24 hydroxychloroquine 200 mg tablet 200 mg PO BID 30 days #60 tabs 12/22/24 ibuprofen 600 mg tablet 600 mg PO Q8H PRN fever or pain 30 12/22/24 days #30 tabs sulfasalazine 500 mg tablet 0.5 g PO TID 30 days #90 tabs 12/22/24 tamsulosin 0.4 mg capsule 0.4 mg PO BEDTIME 30 days #30 caps 12/22/24 triamcinolone acetonide 0.5 % 1 appl topical BID #15 grams 12/22/24 topical cream allopurinol 100 mg tablet 100 mg PO BID #30 tabs 02/08/25 amitriptyline 10 mg tablet 20 mg (2 x 10 mg) PO BEDTIME #30 02/08/25 tabs amlodipine 5 mg tablet 5 mg PO DAILY #30 tabs 02/08/25 atenolol 100 mg tablet 100 mg PO DAILY #30 tabs 02/08/25 erythromycin with ethanol 2 % 1 appl topical BID #60 grams 02/08/25 topical gel etanercept 25 mg/0.5 mL (0.5 mL) 25 mg (0.5 mL) subcut 2XW #4.5 mL 02/08/25 subcutaneous syringe finasteride 5 mg tablet 5 mg PO DAILY #30 tabs 02/08/25 hydroxychloroquine 200 mg tablet 200 mg PO BID #60 tabs 02/08/25 ibuprofen 600 mg tablet 600 mg PO Q8H PRN pain #60 tabs 02/08/25 sulfasalazine 500 mg tablet 500 mg PO TID #90 tabs 02/08/25 tamsulosin 0.4 mg capsule 0.4 mg PO DAILY #30 caps 02/08/25 Allergies Allergy/AdvReac Type Severity Reaction Status Date / Time methotrexate [METHOTREXATE] Allergy Unknown NAUSEA Verified 02/08/25 16:35 Review of Systems Review of Systems: medication refill Yes all other systems are reviewed and are negative [facility] Past Medical History Medical History Rheumatoid arthritis Sleep apnea Hypertension Surgical History H/O colonoscopy History of facial surgery History of cholecystectomy History of appendectomy Family History Family History Father Alzheimers disease Mother Pyelonephritis Family/Other Prostate cancer Breast cancer Polymyalgia rheumatica Social History Social History Household Members Other:: single Are you a primary critical care nurse practitioner to a significant other at home: No Do you presently have visiting nurse or other home services: No Patient Tobacco Use Status: Former Tobacco user Second Hand Smoke Exposure: No Advance Directives: No Advance Directives Information Provided: Yes Do you have a plan to hurt others: No Plan Current occupational status: disabled Physical Exam ED Vital Signs: Vital Signs - 24 hr 02/08/25 16:34 Temperature 98.3 F Pulse Rate 69 Respiratory Rate 18 Blood Pressure 141/64 H Pulse Oximetry 99 Oxygen Delivery Method Room Air BMI result Body Mass Index 32.5 Const General: cooperative, healthy appearing, comfortable, no acute distress, well developed, alert, awake and Physically active Orientation/consciousness: patient oriented x3 HENMT Head: Yes normal to inspection, Yes No palpable skull fracture present, Yes normocephalic and Yes atraumatic Eyes General: appearance normal, both eyes and all related structures Neck Neck: Yes normal visual inspection, Yes full ROM, Yes no lymphadenopathy, Yes no meningeal signs, Yes trachea midline, Yes supple, No anterior neck swelling and No tender Chest Chest palpation & inspection: normal inspection of the chest and normal palpation of entire chest wall Resp Effort & Inspection: normal respiratory effort and able to speak in complete sentences Auscultation: clear to auscultation bilaterally Cardio Jugular venous distension: no JVD Heart sounds: S1 normal heart sound present and S2 normal heart sound present GI Inspection: Yes normal to inspection Palpation (GI): Soft to palpation, not firm, nontender, no guarding and not rigid General: Yes no CVA tenderness Back/Spine/Pelvis Back: no CVA tenderness and No back tenderness Skin General skin exam: no rashes or lesions noted, elasticity normal and turgor normal Neuro General: patient oriented x3, gait normal, tone normal, moves all extremities, Normal light touch and pain sensation, no meningeal signs, no focal motor deficits and CN's II-XI intact bilaterally Extrem General: Yes normal to inspection, Yes full ROM and Yes capillary refill normal Psych Appearance: grossly normal, well kempt and not disheveled Medical Decision Making Medical Decision Making MDM Narrative: 70-year-old male history of rheumatoid arthritis hypertension gastritis esophagitis presents to the ED for medication refill for allopurinol, amitriptyline, amlodipine, atenolol, erythromycin withrisome signold, it tenderness up, finasteride, hydroxychloroquine, ibuprofen, tamulosin and sulfasaline. Patient is asymptomatic. Patient explained worrisome and informed to return to the ED immediatley. Differential Diagnosis Differential Diagnoses: The differential diagnosis associated with the presentation includes (meds refill) Admission/Observation Consideration of admission/observation: Escalation of care including admission/observation considered Independent Historian Clinical information obtained from an independent historian. History obtained from or confirmed by: Other (patient) Prescription Management I considered prescription management with: Other (meds) Discharge Plan Discharge Clinical Impression: Medication refill Patient Disposition: Home, Self-Care Instructions: Medicine Refill (ED) Additional Instructions: Return to the ED for any concerning symptoms. Call your provider to get an earlier appointment. Prescriptions: New allopurinol 100 mg tablet 100 mg PO BID Qty: 30 0RF amitriptyline 10 mg tablet 20 mg PO BEDTIME Qty: 30 0RF amlodipine 5 mg tablet 5 mg PO DAILY Qty: 30 0RF atenolol 100 mg tablet 100 mg PO DAILY Qty: 30 0RF erythromycin with ethanol 2 % gel 1 appl topical BID Qty: 60 0RF etanercept 25 mg/0.5 mL (0.5) syringe 25 mg subcut 2XW Qty: 4.5 0RF finasteride 5 mg tablet 5 mg PO DAILY Qty: 30 0RF hydroxychloroquine 200 mg tablet 200 mg PO BID Qty: 60 0RF ibuprofen 600 mg tablet 600 mg PO Q8H PRN (Reason: pain) Qty: 60 0RF sulfasalazine 500 mg tablet 500 mg PO TID Qty: 90 0RF Rx Instructions: give with food (meal/snack) tamsulosin 0.4 mg capsule 0.4 mg PO DAILY Qty: 30 0RF No Action etanercept 25 mg/0.5 mL (0.5) syringe 25 mg subcut 2XW mometasone 0.1 % cream 1 appl topical DAILY Qty: 45 8RF omeprazole magnesium [Prilosec OTC] 20 mg tablet,delayed release (DR/EC) 20 mg PO BID Qty: 60 0RF sucralfate [Carafate] 1 gram tablet 1 g PO BID Qty: 28 0RF atenolol 100 mg tablet 100 mg PO DAILY Qty: 30 0RF amlodipine 5 mg tablet 5 mg PO DAILY Qty: 30 0RF tamsulosin 0.4 mg capsule 0.4 mg PO DAILY Qty: 30 0RF amitriptyline 10 mg tablet 20 mg PO DAILY Qty: 90 8RF hydroxychloroquine 200 mg tablet 200 mg PO BID Qty: 60 0RF finasteride 5 mg tablet 5 mg PO DAILY Qty: 30 8RF erythromycin with ethanol 2 % solution 1 appl topical BID PRN (Reason: Rash) 30 Days Qty: 60 0RF allopurinol 100 mg tablet 200 mg PO DAILY Qty: 60 0RF amitriptyline 10 mg tablet 20 mg PO BEDTIME Qty: 60 0RF amlodipine 5 mg tablet 5 mg PO DAILY Qty: 30 0RF atenolol 100 mg tablet 100 mg PO DAILY Qty: 30 0RF erythromycin with ethanol 2 % solution 1 appl topical BID Qty: 60 0RF finasteride 5 mg tablet 5 mg PO DAILY Qty: 30 0RF tamsulosin 0.4 mg capsule 0.4 mg PO BEDTIME Qty: 30 0RF triamcinolone acetonide 0.5 % cream 1 appl topical BID Qty: 15 0RF hydroxychloroquine 200 mg tablet 200 mg PO BID Qty: 60 0RF allopurinol 100 mg tablet 100 mg PO BID 30 Days Qty: 60 0RF amitriptyline 10 mg tablet 20 mg PO BEDTIME 30 Days Qty: 60 0RF amlodipine 5 mg tablet 5 mg PO DAILY 30 Days Qty: 30 0RF atenolol 100 mg tablet 100 mg PO DAILY 30 Days Qty: 30 0RF Enbrel 25 mg/0.5 mL (0.5) syringe 25 mg subcut 2XW 30 Days Qty: 4.5 0RF finasteride 5 mg tablet 5 mg PO DAILY 30 Days Qty: 30 0RF hydroxychloroquine 200 mg tablet 200 mg PO BID 30 Days Qty: 60 0RF ibuprofen 600 mg tablet 600 mg PO Q8H PRN (Reason: fever or pain) 30 Days Qty: 30 0RF sulfasalazine 500 mg tablet 0.5 g PO TID 30 Days Qty: 90 0RF Rx Instructions: give with food (meal/snack) tamsulosin 0.4 mg capsule 0.4 mg PO BEDTIME 30 Days Qty: 30 0RF triamcinolone acetonide 0.5 % cream 1 appl topical BID Qty: 15 0RF erythromycin with ethanol 2 % solution 1 appl topical BID Qty: 60 0RF sulfasalazine 500 mg tablet 500 mg PO DAILY Interventions: ED Discharge Assessment Last Done: 02/08/25 17:03 Discharge Date/Time: 02/08/25 17:03 Print Language: Divehi
[2025-02-08 17:03] VITALS: BP 141/64; PULSE 69; RESP 18; TEMP 36.8; O2SAT 99
--- OUTSIDE RECORDS SUMMARY | 2025-02-08 18:21 | XMS_ITS | Patient Health Record ---
Author Organization [facility] Address [address] [place] [address] Care Team Providers Care Auto Fleet Maintenance Manager Name Role Phone Mik Joseph MD Primary Care Provider Unavaila Vlad Myers Unavailable [phone] Allergies Allergen (clinical drug ingredient) Drug/Non Drug Allergy documented on EMR Reaction Allergy Type Onset Date Status Methotrexate nausea Drug Allergy Acti ve Reason For Referral No Information Medications Medication SIG (Take, Route, Frequency, Duration) Notes Start Date End Date Status Ibuprofen 600 MG TAKE 1 TABLET BY CAMRYN TH UP TO THREE TIMES DAILY NEEDED FOR PAIN Oral for 30 Active Enbrel 25 MG/0.5ML INJECT 25 MG (1 SYRI NGE) SUBCUTANEOUSLY TWICE PER WEEK Subcutaneous for 28 Active Tamsulosin HCl 0.4 MG TAKE 2 CAPSULES BY MOUTH EVERY DAY Oral for 30 Active sulfaSALAzine 500 MG TAKE 1 TABLET THREE TIMES DAILY Oral for 30 Active Atenolol 25 MG TAKE 1 TABLET BY CAMRYN TH EVERY DAY Oral for 90 Active Ciclopirox Olamine 0.77 % 1 application to affected area Externally to feet Twice a day for 30 days Active Flax Seed Oil Active amLODIPine Besylate 2.5 MG TAKE 1 TABLET BY MOUTH EVERY DAY Oral for 90 Active Mometasone Furoate A ctive hydrOXYzine HCl 25 MG TAKE 1 TABLET BY M OUTH FOUR TIMES DAILY Oral for 30 Active Voltaren 1 % as directed External ly Twice a day to painful areas on feet for 30 days 10/19/2018 Active Finasteride 5 MG TAKE 1 TABLET BY CAMRYN TH ONCE DAILY Oral for 30 Active Ammonium Lactate 12 % 1 application to affected area Externally to feet Twice a day for 30 days Active Allopurinol 100 MG TAKE 2 TABLETS BY MO UTH ONCE DAILY Oral for 90 Active Hydroxychloroquine Sulfate 200 MG TAKE 1 TABLET BY MOUTH TWICE DAILY Oral for 30 Active Amitriptyline HCl 10 MG TAKE 2 TABLETS B Y MOUTH AT BEDTIME Oral for 30 Active Erythromycin 2 % APPLY TO THE AFFECTE D AREA(S) TWICE DAILY External for 15 Active Social History Tobacco Use: Social History Observation Description Date Details (start date - stop date) Former Smoker NA - NA Tobacco Use/Smoking Question Answer Notes Are you a: former smoker Additional Findings: Tobacco Non-User Current no n-smoker Alcohol Screen Question Answer Notes Did you have a drink containing alcohol in the p ast year? Yes Points 0 Interpretation Negative Tobacco use other than smoking: Question Answer Notes Are you an other tobacco user? No Plan Of Treatment No Information Insurance Providers Payer Name Payer Address Payer Phone Subscriber Number Group Number Insured Name Patient Relationship to Insured Coverage Start Date Coverage End Date Medicare National [employer] Sv[employer] [address] [place] [address] [id number] Jay Mcgregor Self - patient is the insured [facility] [address] [place] [address] [phone] [id number] Jay Mcgregor Self - patient is the insured Medical (General) History Medical History History ICD Code Hypertension Rheumatoid arthritis Gout Back,Hip,and Knee pain Cataracts Headaches/Migraines Mumps Numbness Poor circulation Psoriasis/eczema chronic sinusitis Eczema Benign prostatic hyperplasia (BPH) Sleep apnea Dementia homochromatosis Surgical History Surgery Date(Month/Year) appendectomy 1970 cholecystectomy 1989 facial fractures 1991
== END 2025-02-08 17:03 | disposition home or self-care (01) ==
PROVIDERS: Emergency Provider Emergency Medicine Emergency Medical Services
DX: Z76.0 Encounter for issue of repeat prescription (principal); M06.9 Rheumatoid arthritis, unspecified; I10 Essential (primary) hypertension
CPT/HCPCS: 99282

== ENCOUNTER 2025-03-27 10:25 | Emergency (ER) | payer MEDICARE, SELFPAY ==
[2025-03-27 10:57] VITALS: BP 123/68; PULSE 64; RESP 18; TEMP 36.6; O2SAT 95; BMI 32.6
--- NOTE | 2025-03-27 10:58 | ED.GENADULT ---
HPI - General Adult General Chief complaint: General Medical Stated complaint: med refill Time Seen by Provider: 03/27/25 11:00 Source: patient, RN notes reviewed and old records reviewed Mode of arrival: ambulatory Limitations: no limitations History of Present Illness ED Provider: Enriqueta LOVING narrative: Patient is a 70-year-old male with history of gastritis, alcohol use, rheumatoid arthritis, HTN, tubular adenoma presenting to the ED for medication refill. Has appointment with new PCP on April 12. Had meds refilled here on 12/22 and 02/08. He denies any current physical complaints. MD complaint: medication refill Related Data Home Medications ?Medication ?Instructions ?Recorded ?Confirmed etanercept 25 mg/0.5 mL (0.5 mL) 25 mg subcut 2XW 09/12/20 08/13/21 subcutaneous syringe sulfasalazine 500 mg tablet 500 mg PO DAILY 03/14/21 08/13/21 Previous Rx's ?Medication ?Instructions ?Recorded mometasone 0.1 % topical cream 1 appl topical DAILY #45 grams 04/10/21 omeprazole magnesium 20 mg 20 mg PO BID #60 tabs 08/13/21 tablet,delayed release (Prilosec OTC) sucralfate 1 gram tablet (Carafate) 1 g PO BID #28 tabs 08/13/21 allopurinol 100 mg tablet 200 mg (2 x 100 mg) PO DAILY #60 11/16/24 tabs amitriptyline 10 mg tablet 20 mg (2 x 10 mg) PO BEDTIME #60 11/16/24 tabs amitriptyline 10 mg tablet 20 mg (2 x 10 mg) PO DAILY #90 tabs 11/16/24 amlodipine 5 mg tablet 5 mg PO DAILY #30 tabs 11/16/24 amlodipine 5 mg tablet 5 mg PO DAILY #30 tabs 11/16/24 atenolol 100 mg tablet 100 mg PO DAILY #30 tabs 11/16/24 atenolol 100 mg tablet 100 mg PO DAILY #30 tabs 11/16/24 erythromycin with ethanol 2 % 1 appl topical BID #60 mL 11/16/24 topical solution erythromycin with ethanol 2 % 1 appl topical BID PRN Rash 30 11/16/24 topical solution days #60 mL finasteride 5 mg tablet 5 mg PO DAILY #30 tabs 11/16/24 finasteride 5 mg tablet 5 mg PO DAILY #30 tabs 11/16/24 hydroxychloroquine 200 mg tablet 200 mg PO BID #60 tabs 11/16/24 hydroxychloroquine 200 mg tablet 200 mg PO BID #60 tabs 11/16/24 tamsulosin 0.4 mg capsule 0.4 mg PO BEDTIME #30 caps 11/16/24 tamsulosin 0.4 mg capsule 0.4 mg PO DAILY #30 caps 11/16/24 triamcinolone acetonide 0.5 % 1 appl topical BID #15 grams 11/16/24 topical cream allopurinol 100 mg tablet 100 mg PO BID 30 days #60 tabs 12/22/24 amitriptyline 10 mg tablet 20 mg (2 x 10 mg) PO BEDTIME 30 12/22/24 days #60 tabs amlodipine 5 mg tablet 5 mg PO DAILY 30 days #30 tabs 12/22/24 atenolol 100 mg tablet 100 mg PO DAILY 30 days #30 tabs 12/22/24 erythromycin with ethanol 2 % 1 appl topical BID #60 mL 12/22/24 topical solution etanercept 25 mg/0.5 mL (0.5 mL) 25 mg (0.5 mL) subcut 2XW 30 days 12/22/24 subcutaneous syringe (Enbrel) #4.5 mL finasteride 5 mg tablet 5 mg PO DAILY 30 days #30 tabs 12/22/24 hydroxychloroquine 200 mg tablet 200 mg PO BID 30 days #60 tabs 12/22/24 ibuprofen 600 mg tablet 600 mg PO Q8H PRN fever or pain 30 12/22/24 days #30 tabs sulfasalazine 500 mg tablet 0.5 g PO TID 30 days #90 tabs 12/22/24 tamsulosin 0.4 mg capsule 0.4 mg PO BEDTIME 30 days #30 caps 12/22/24 triamcinolone acetonide 0.5 % 1 appl topical BID #15 grams 12/22/24 topical cream allopurinol 100 mg tablet 100 mg PO BID #30 tabs 02/08/25 amitriptyline 10 mg tablet 20 mg (2 x 10 mg) PO BEDTIME #30 02/08/25 tabs amlodipine 5 mg tablet 5 mg PO DAILY #30 tabs 02/08/25 atenolol 100 mg tablet 100 mg PO DAILY #30 tabs 02/08/25 erythromycin with ethanol 2 % 1 appl topical BID #60 grams 02/08/25 topical gel etanercept 25 mg/0.5 mL (0.5 mL) 25 mg (0.5 mL) subcut 2XW #4.5 mL 02/08/25 subcutaneous syringe finasteride 5 mg tablet 5 mg PO DAILY #30 tabs 02/08/25 hydroxychloroquine 200 mg tablet 200 mg PO BID #60 tabs 02/08/25 ibuprofen 600 mg tablet 600 mg PO Q8H PRN pain #60 tabs 02/08/25 sulfasalazine 500 mg tablet 500 mg PO TID #90 tabs 02/08/25 tamsulosin 0.4 mg capsule 0.4 mg PO DAILY #30 caps 02/08/25 amitriptyline 10 mg tablet 20 mg (2 x 10 mg) PO BEDTIME 30 03/27/25 days #60 tabs amlodipine 5 mg tablet 5 mg PO DAILY #30 tabs 03/27/25 atenolol 100 mg tablet 100 mg PO DAILY 30 days #30 tabs 03/27/25 erythromycin with ethanol 2 % 1 appl topical BID 30 days #60 mL 03/27/25 topical solution etanercept 25 mg/0.5 mL 25 mg (0.5 mL) subcut 2XW 30 days 03/27/25 subcutaneous solution (Enbrel) #4.5 mL finasteride 5 mg tablet 5 mg PO DAILY 30 days #30 tabs 03/27/25 ibuprofen 600 mg tablet 600 mg PO TID PRN pain #90 tabs 03/27/25 sulfasalazine 500 mg tablet 500 mg PO TID #90 tabs 03/27/25 tamsulosin 0.4 mg capsule 0.4 mg PO BEDTIME #30 caps 03/27/25 triamcinolone acetonide 0.5 % 1 appl topical BID #15 grams 03/27/25 topical cream Allergies Allergy/AdvReac Type Severity Reaction Status Date / Time methotrexate (METHOTREXATE) Allergy Unknown NAUSEA Verified 03/27/25 11:00 Review of Systems Review of Systems: As per HPI Yes all other systems are reviewed and are negative Constitutional: Constitutional: Reports as per HPI PMFSH Past Medical History Medical History Rheumatoid arthritis Sleep apnea Hypertension Surgical History H/O colonoscopy History of facial surgery History of cholecystectomy History of appendectomy Family History Family History Father Alzheimers disease Mother Pyelonephritis Family/Other Prostate cancer Breast cancer Polymyalgia rheumatica Social History Social History Household Members Other:: single Are you a primary personal care attendant to a significant other at home: No Do you presently have visiting nurse or other home services: No Patient Tobacco Use Status: Former Tobacco user Second Hand Smoke Exposure: No Current occupational status: disabled Physical Exam ED Vital Signs: Vital Signs - 24 hr 03/27/25 10:57 Temperature 97.9 F Pulse Rate 64 Respiratory Rate 18 Blood Pressure 123/68 Pulse Oximetry 95 Oxygen Delivery Method Room Air BMI result Body Mass Index 32.6 Vital signs have been reviewed and appear to be correct. Blood pressure normal. Heart rate normal. Respiratory rate normal. Temperature normal. Oxygen saturation normal. Const General: cooperative, healthy appearing and no acute distress Orientation/consciousness: oriented to person, oriented to place, oriented to time and patient oriented x3 Limitations: no limitations HENMT Head: Yes normocephalic and Yes atraumatic Ears: external ears normal General nose exam: Normal external nose present Face and sinus: Yes face symmetric Mouth: oropharynx normal and moist mucous membranes Throat: Yes uvula midline Eyes Pupils: Equal, round and reactive pupils present Neck Neck: Yes normal visual inspection and Yes supple Resp Effort & Inspection: normal respiratory effort and able to speak in complete sentences Auscultation: clear to auscultation bilaterally Cardio Rate: regular rate Rhythm: regular rhythm Heart sounds: S1 normal heart sound present and S2 normal heart sound present GI Palpation (GI): Soft to palpation and nontender Auscultation: normoactive bowel sounds General: Yes no CVA tenderness Back/Spine/Pelvis Back: no CVA tenderness Skin General skin exam: elasticity normal and turgor normal Neuro General: oriented to person, oriented to place, oriented to time, patient oriented x3, moves all extremities, no focal motor deficits and CN's II-XI intact bilaterally Cranial nerves: Yes Equal, round and reactive pupils present Cognition (Neuro): normal cognition Extrem General: Yes full ROM, Yes no pedal edema and Yes no calf tenderness Psych Mental Status: mental status grossly normal Affect: normal affect Thought process: Normal thought process present Medical Decision Making Medical Decision Making [facility] Narrative: Patient is a 70-year-old male with history of gastritis, alcohol use, rheumatoid arthritis, HTN, tubular adenoma presenting to the ED for medication refill. No current complaints. On exam patient is awake, A+Ox3, VS WNL, afebrile, normal neurological exam without focal deficits, physical exam findings as above. Given reported symptoms and physical exam findings, initial differential includes but is not limited to medication refill. Refills sent for amitriptyline, amlodipine, atenolol, enbrel, erythromycin solution, finasteride, ibuprofen, sulfasalazine, tamsulosin, and triamcinolone cream. Return precautions discussed. Advised patient to ensure he keeps his appointment with new PCP on 04/12. Differential Diagnosis Differential Diagnoses: The differential diagnosis associated with the presentation includes as per [facility] Admission/Observation Consideration of admission/observation: Escalation of care including admission/observation considered Patient would have been admitted to the hospital had their clinical presentation warranted hospital admission. External Record Review External record reviewed: Inpatient record, Office record and Outpatient record Prescription Management I considered prescription management with: Other Discharge Plan Discharge Clinical Impression: Encounter for medication refill, Hypertension, Rheumatoid arthritis Patient Disposition: Home, Self-Care Additional Instructions: You were provided with a 30-day supply of medications to cover until you are able to see your new PCP on 04/12. Be sure to keep that appointment. Return to the ED with any new or concerning symptoms. Prescriptions: New amitriptyline 10 mg tablet 20 mg PO BEDTIME 30 Days Qty: 60 0RF sulfasalazine 500 mg tablet 500 mg PO TID Qty: 90 0RF Rx Instructions: give with food (meal/snack) triamcinolone acetonide 0.5 % cream 1 appl topical BID Qty: 15 0RF atenolol 100 mg tablet 100 mg PO DAILY 30 Days Qty: 30 0RF amlodipine 5 mg tablet 5 mg PO DAILY Qty: 30 0RF tamsulosin 0.4 mg capsule 0.4 mg PO BEDTIME Qty: 30 0RF ibuprofen 600 mg tablet 600 mg PO TID PRN (Reason: pain) Qty: 90 0RF finasteride 5 mg tablet 5 mg PO DAILY 30 Days Qty: 30 0RF erythromycin with ethanol 2 % solution 1 appl topical BID 30 Days Qty: 60 0RF Enbrel 25 mg/0.5 mL solution 25 mg subcut 2XW 30 Days Qty: 4.5 0RF No Action etanercept 25 mg/0.5 mL (0.5) syringe 25 mg subcut 2XW mometasone 0.1 % cream 1 appl topical DAILY Qty: 45 8RF omeprazole magnesium [Prilosec OTC] 20 mg tablet,delayed release (DR/EC) 20 mg PO BID Qty: 60 0RF sucralfate [Carafate] 1 gram tablet 1 g PO BID Qty: 28 0RF atenolol 100 mg tablet 100 mg PO DAILY Qty: 30 0RF amlodipine 5 mg tablet 5 mg PO DAILY Qty: 30 0RF tamsulosin 0.4 mg capsule 0.4 mg PO DAILY Qty: 30 0RF amitriptyline 10 mg tablet 20 mg PO DAILY Qty: 90 8RF hydroxychloroquine 200 mg tablet 200 mg PO BID Qty: 60 0RF finasteride 5 mg tablet 5 mg PO DAILY Qty: 30 8RF erythromycin with ethanol 2 % solution 1 appl topical BID PRN (Reason: Rash) 30 Days Qty: 60 0RF allopurinol 100 mg tablet 200 mg PO DAILY Qty: 60 0RF amitriptyline 10 mg tablet 20 mg PO BEDTIME Qty: 60 0RF amlodipine 5 mg tablet 5 mg PO DAILY Qty: 30 0RF atenolol 100 mg tablet 100 mg PO DAILY Qty: 30 0RF erythromycin with ethanol 2 % solution 1 appl topical BID Qty: 60 0RF finasteride 5 mg tablet 5 mg PO DAILY Qty: 30 0RF tamsulosin 0.4 mg capsule 0.4 mg PO BEDTIME Qty: 30 0RF triamcinolone acetonide 0.5 % cream 1 appl topical BID Qty: 15 0RF hydroxychloroquine 200 mg tablet 200 mg PO BID Qty: 60 0RF allopurinol 100 mg tablet 100 mg PO BID 30 Days Qty: 60 0RF amitriptyline 10 mg tablet 20 mg PO BEDTIME 30 Days Qty: 60 0RF amlodipine 5 mg tablet 5 mg PO DAILY 30 Days Qty: 30 0RF atenolol 100 mg tablet 100 mg PO DAILY 30 Days Qty: 30 0RF Enbrel 25 mg/0.5 mL (0.5) syringe 25 mg subcut 2XW 30 Days Qty: 4.5 0RF finasteride 5 mg tablet 5 mg PO DAILY 30 Days Qty: 30 0RF hydroxychloroquine 200 mg tablet 200 mg PO BID 30 Days Qty: 60 0RF ibuprofen 600 mg tablet 600 mg PO Q8H PRN (Reason: fever or pain) 30 Days Qty: 30 0RF sulfasalazine 500 mg tablet 0.5 g PO TID 30 Days Qty: 90 0RF Rx Instructions: give with food (meal/snack) tamsulosin 0.4 mg capsule 0.4 mg PO BEDTIME 30 Days Qty: 30 0RF triamcinolone acetonide 0.5 % cream 1 appl topical BID Qty: 15 0RF erythromycin with ethanol 2 % solution 1 appl topical BID Qty: 60 0RF allopurinol 100 mg tablet 100 mg PO BID Qty: 30 0RF amitriptyline 10 mg tablet 20 mg PO BEDTIME Qty: 30 0RF amlodipine 5 mg tablet 5 mg PO DAILY Qty: 30 0RF atenolol 100 mg tablet 100 mg PO DAILY Qty: 30 0RF erythromycin with ethanol 2 % gel 1 appl topical BID Qty: 60 0RF etanercept 25 mg/0.5 mL (0.5) syringe 25 mg subcut 2XW Qty: 4.5 0RF finasteride 5 mg tablet 5 mg PO DAILY Qty: 30 0RF hydroxychloroquine 200 mg tablet 200 mg PO BID Qty: 60 0RF ibuprofen 600 mg tablet 600 mg PO Q8H PRN (Reason: pain) Qty: 60 0RF sulfasalazine 500 mg tablet 500 mg PO TID Qty: 90 0RF Rx Instructions: give with food (meal/snack) tamsulosin 0.4 mg capsule 0.4 mg PO DAILY Qty: 30 0RF sulfasalazine 500 mg tablet 500 mg PO DAILY Print Language: Welsh
[2025-03-27 11:16] VITALS: BP 123/68; PULSE 64; RESP 18; TEMP 36.1; O2SAT 95
--- OUTSIDE RECORDS SUMMARY | 2025-03-27 12:23 | XMS_ITS | Patient Health Record ---
Author [facility] Address [address] [place] [address] Care Team Providers Care Senior Underwriter Name Role Phone Mik Joseph MD Primary Care Provider Unavaila Vlad Myers Unavailable [phone] Allergies Allergen (clinical drug ingredient) Drug/Non Drug Allergy documented on EMR Reaction Allergy Type Onset Date Status Methotrexate nausea Drug Allergy Acti ve Reason For Referral No Information Medications Medication SIG (Take, Route, Frequency, Duration) Notes Start Date End Date Status Ibuprofen 600 MG TAKE 1 TABLET BY CAMRYN TH UP TO THREE TIMES DAILY NEEDED FOR PAIN Oral; Duration: 30 Active Enbrel 25 MG/0.5ML INJECT 25 MG (1 SYRI NGE) SUBCUTANEOUSLY TWICE PER WEEK Subcutaneous; Duration: 28 Active Tamsulosin HCl 0.4 MG TAKE 2 CAPSULES BY MOUTH EVERY DAY Oral; Duration: 30 Active sulfaSALAzine 500 MG TAKE 1 TABLET THREE TIMES DAILY Oral; Duration: 30 Active Atenolol 25 MG TAKE 1 TABLET BY CAMRYN TH EVERY DAY Oral; Duration: 90 Active Ciclopirox Olamine 0.77 % 1 application to affected area Externally to feet Twice a day; Duration: 30 days Active Flax Seed Oil Active amLODIPine Besylate 2.5 MG TAKE 1 TABLET BY MOUTH EVERY DAY Oral; Duration: 90 Active Mometasone Furoate A ctive hydrOXYzine HCl 25 MG TAKE 1 TABLET BY M OUTH FOUR TIMES DAILY Oral; Duration: 30 Active Voltaren 1 % as directed External ly Twice a day to painful areas on feet; Duration: 30 days 10/19/2018 Active Finasteride 5 MG TAKE 1 TABLET BY CAMRYN TH ONCE DAILY Oral; Duration: 30 Active Ammonium Lactate 12 % 1 application to affected area Externally to feet Twice a day; Duration: 30 days Active Allopurinol 100 MG TAKE 2 TABLETS BY MO UT ONCE DAILY Oral; Duration: 90 Active Hydroxychloroquine Sulfate 200 MG TAKE 1 TABLET BY MOUTH TWICE DAILY Oral; Duration: 30 Active Amitriptyline HCl 10 MG TAKE 2 TABLETS B Y MOUTH AT BEDTIME Oral; Duration: 30 Active Erythromycin 2 % APPLY TO THE AFFECTE D AREA(S) TWICE DAILY External; Duration: 15 Active Social History Tobacco Use: Social [...] Medicare National Govt Sv[employer] [address] [place] [address] [id number] Jay Mcgregor Self - patient is the insured [facility] [address] [place] [address] [phone] [id number] Jay Mcgregor Self - patient is the insured Medical (General) History Medical History History ICD Code Hypertension Rheumatoid arthritis Gout Back,Hip,and Knee pain Cataracts Headaches/Migraines Mumps Numbness Poor circulation Psoriasis/eczema chronic sinusitis Eczema Benign prostatic hyperplasia (BPH) Sleep apnea Dementia homochromatosis Surgical History Surgery Date(Month/Year) appendectomy 1970 cholecystectomy 1989 facial fractures 1991
--- OUTSIDE RECORDS SUMMARY | 2025-03-27 12:23 | XMS_ITS | Encounter Summary ---
Author Organization [email or web address] Address [address] [place] [address] Care Team Providers Care Folder Hand Name Role Phone Unavailable Primary Care Provider Unavailabl e Reason for Visit * Reason Onset Date Comments consulation dentures 09/27/2024 Encounter Details Date Type Department Care Team (Late st Contact Info) Description 09/27/2024 Telephone [facility] [address] [place] [address] Celia Regan, DDS [address] [place] [address] consulation dentures Social History Tobacco Use Types [...] consultation for dentures/patient got immediate dentures in [facility] but they no longer accept his insurance. He is looking for the regular dentures . Confrimed with front end specialist can provide appt for consulation DR documented in this encounter Plan of Treatment Not on file documented as of this encounter Visit Diagnoses Not on filedocumented in this encounter
== END 2025-03-27 11:17 | disposition home or self-care (01) ==
PROVIDERS: Emergency Provider Emergency Medicine
DX: M06.9 Rheumatoid arthritis, unspecified (principal); I10 Essential (primary) hypertension; Z76.0 Encounter for issue of repeat prescription
CPT/HCPCS: 99282; 99283

== ENCOUNTER 2025-04-12 10:42 | Outpatient (AMB) | payer MEDICARE, SELFPAY ==
[2025-04-12 10:45] VITALS: BP 140/72; PULSE 60; RESP 18; O2SAT 95; BMI 33.5
--- NOTE | 2025-04-12 10:45 | MHC.PC.OV ---
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1% 1 appl topical DAILY omeprazole magnesium (Prilosec OTC) 20 mg PO BID sulfasalazine 500 mg PO TID tamsulosin 0.4 mg PO BEDTIME triamcinolone acetonide 0.5% 1 appl topical BID Tobacco use date assessed: 04/12/25 Fall risk assessment: 1 Fall in past year Last assessed Fall Risk: 04/12/25 Dental Screening Dental Screen Date: 04/12/25 Did you have a dental visit in the last 12 months?: Yes Did you have a dental problem in the last 6 months where you did not have access to dental care?: No Was dental information given to patient?: Patient has dentist HPI SENIOR GAME ADVISOR MEDICATION REVIEW HPI Details Previous PCP:pamela years ago Last visit: Last PE: long time Specialist: rhuematology OBGYN:n/a Past medical history: RA, tendinitis, bursitis, plantar fasciitis Problem: The patient is a 70-year-old male [facility] management of chronic conditions and preventative care. The patient has a history of rheumatoid arthritis, which began in 2000 following a [place] cruise where he experienced generalized weakness. He has been under the care of a hearing aid consultant since then, with visits every six months, although he has not seen the specialist in a year due to insurance changes requiring a new referral. He also reports tendonitis and bursitis, with plantar fasciitis affecting both feet, which worsens in the morning and improves with movement. The patient has been diagnosed with gout, managed with allopurinol, and reports taking 100 mg twice daily. He has a history of sleep apnea but was unable to tolerate CPAP therapy. Additionally, he has eczema on his stomach, managed with topical treatments. The patient has undergone colonoscopies in 2013 and 2016, with polyp removal, and is due for another screening. He has a family history of prostate cancer, with his brother having undergone prostatectomy. [facility] Medical History Rheumatoid arthritis Sleep apnea Hypertension Surgical History H/O colonoscopy History of facial surgery History of cholecystectomy History of appendectomy Family History Father Alzheimers disease Mother Pyelonephritis Family/Other Prostate cancer Breast cancer Polymyalgia rheumatica Social History Household Members Other:: single Housing: Apartment Are you a primary respiratory care assistant to a significant other at home: No Do you presently have visiting nurse or other home services: No Patient Tobacco Use Status: Former Tobacco user e-Cigarette/Vaping Use: Never Used Second Hand Smoke Exposure: No service: No Current occupational status: disabled Cognitive needs: No Hearing needs: No Vision needs: Yes Questionnaire PHQ-9 Over the last 2 weeks, how often have you been bothered by any of the following problems? 1. Little interest or pleasure in doing things: not at all 2. Feeling down, depressed, or hopeless: not at all 3. Trouble falling or staying asleep, or sleeping too much: several days 4. Feeling tired or having little energy: more than half the days 5. Poor appetite or overeating: not at all 6. Feeling bad about yourself - or that you are a failure or have let yourself or your family down: not at all 7. Trouble concentrating on things, such as reading the newspaper or watching television: not at all 8. Moving or speaking so slowly that other people could have noticed. Or the opposite - being so fidgety or restless that you have been moving around a lot more than usual: not at all 9. Thoughts that you would be better off or of hurting yourself in some way: not at all Total score: 3 Depression Screening Interpretation: Negative Depression Screening Done: Yes 84209 - PHQ-9 Billing: Yes Source: Developed by Drs. Ryan Shah, Ginger Zaidi, Krish Peng and colleagues, with an educational kota from [employer]. Thrive Questionnaire Date Thrive assessed: 04/12/25 I am a: Patient What is your living situation today?: I have a steady place to live Within the past 12 months, did the food you bought not last and you didn't have the money to get more?: Never true Within the past 12 months, did you worry whether your food would run out before you got money to buy more?: Never true Do you have trouble paying for medicines?: No Do you have trouble getting transportation to medical appointments?: No Do you have trouble paying your heating and electricity bill?: No Do you have trouble taking care of your child, family member or friend?: No Do you have trouble with day-to-day activities such as bathing, preparing meals, shopping, managing finances, etc.?: No Are you currently unemployed and looking for a job?: No Are you interested in more education?: No Please select the resources that you would like help with: None THRIVE Score: 0 AUDIT C Alcohol Use Questionnaire (AUDIT-C) 1. How often do you have a drink containing alcohol?: Monthly or less 2. How many drinks containing alcohol do you have on a typical day when you are drinking?: 1 or 2 3. How often do you have six or more drinks on one occasion?: Never Total Score: 1 SARAH-7 AMB Questionnaire SARAH-7 Date SARAH - 7 assessed: 04/12/25 Feeling nervous, anxious, or on edge: 0 = Not at all Not being able to stop or control worryin = Not at all Worrying too much about different things: 0 = Not at all Trouble relaxin = Not at all Being so restless that it is hard to sit still: 0 = Not at all Becoming easily annoyed or irritable: 1 = Several days Feeling afraid as if something awful might happen: 0 = Not at all Total SARAH-7 score (0-4 normal; 5-9 mild; 10-14 moderate; 15-21 severe): 1 Source: Developed by Drs. Ryan Shah, Ginger Zaidi, Krish Peng and colleagues, with an educational kota from [employer]. SARAH-7 Assessment Billing SARAH-7 Assessment Tool: SARAH-7 Assessment 70093 Review of Systems Const Denies headache(s) Eyes Denies loss of vision ENT Denies vertigo, Denies dizziness, Denies headache(s) and Denies sore throat Card Denies chest pain, Denies leg edema and Denies lightheadedness Resp Denies cough, Denies hemoptysis and Denies wheezing GI Denies abdominal pain, Denies melena, Denies constipation, Denies diarrhea and Denies vomiting Denies dysuria, Denies urinary frequency and Denies urinary urgency Musc Reports arthralgias (Finger Joints in bilateral hands, both knees), Reports joint swelling (On and off swelling in finger joints), Denies numbness, Denies tingling and Reports other (Pain in bilateral Feet history of plantar fasciitis) Neuro Denies Abnormal speech present, Denies behavioral changes, Denies vertigo, Denies dizziness, Denies headache(s), Denies loss of vision, Denies memory loss, Denies numbness and Denies tingling Psych Denies anxiety, Denies behavioral changes, Denies depression, Denies memory loss and Denies panic attacks Neptali/Lymph Denies easy bleeding and Denies easy bruising Aller/Immun Denies wheezing Physical exam (Primary Care) Vital Signs: Last Vital Signs Pulse 60 04/12/25 10:45 Resp 18 04/12/25 10:45 BP 140/72 H 04/12/25 10:45 Pulse Ox 95 04/12/25 10:45 Oxygen Delivery Method Room Air 04/12/25 10:45 BMI result Body Mass Index 33.5 Tobacco/Smoking Status: Tobacco use Status Tobacco use date assessed 04/12/25 04/12/25 10:46 Patient Tobacco Use Status Former Tobacco user 04/12/25 10:46 e-Cigarette/Vaping Use Never Used 04/12/25 11:03 PHQ-9: PHQ-9 Score PHQ-9: Total score 3 04/12/25 11:34 Depression Screening Interpretation: Negative Thrive Assessment: Date of Thrive Assessment Date Thrive assessed 04/12/25 04/12/25 10:46 Const General: healthy appearing, no acute distress, alert and awake Nutritional Appearance: well nourished Orientation/consciousness: oriented to person, oriented to place and oriented to time HENMT Ears: TM's normal bilaterally General nose exam: Normal nasal mucous membranes and turbinates present Eyes Conjunctivae: conjunctivae normal Sclerae: sclerae normal Pupils: Equal, round and reactive pupils present Neck Neck: Yes no lymphadenopathy and Yes no JVD Thyroid: Thyroid normal Carotids: no bruits Resp Effort & Inspection: normal respiratory effort and not tachypneic Auscultation: no crackles, no rales, no rhonchi and no wheezes Cardio Rate: regular rate Rhythm: regular rhythm Heart sounds: S1 normal heart sound present, S2 normal heart sound present, no murmurs and normal S1 and S2 GI Palpation (GI): Soft to palpation, nontender, no hepatomegaly and no splenomegaly Auscultation: normal bowel sounds General: Yes no CVA tenderness Back/Spine/Pelvis Back: no CVA tenderness Skin General skin exam: no rashes or lesions noted and dry skin Neuro General: oriented to person, oriented to place and oriented to time Cranial nerves: Yes Equal, round and reactive pupils present Speech: No Abnormal speech present Gait exam (Neuro): Normal gait present Motor exam (neuro): no tremor noted Extrem Right upper extremity: full ROM and Extremity exam: right hand Details: normal capillary refill, tenderness (Mild) Location: of the dorsal hand, of the palm, of the thumb, of the 2nd digit, of the 3rd digit, of the 4th digit and of the 5th digit and no swelling Left upper extremity: full ROM and hand Details: normal capillary refill, tenderness Location: of the dorsal hand, of the palm, of the thumb, of the 2nd digit, of the 3rd digit, of the 4th digit and of the 5th digit and no swelling Right lower extremity: full ROM, knee Details: tenderness (Mild); no swelling and foot Details: no tenderness; no edema Left lower extremity: full ROM, knee Details: tenderness (Mild); no swelling and foot Details: no tenderness; no edema Psych Mental Status: mental status grossly normal Speech and movement: Normal speech and movement present Affect: normal affect Attitude: cooperative Thought process: Normal thought process present Coding Level of Care Code New Pt Level 4 (47116) Diagnoses Alcohol use Z72.89 Gastritis, presence of bleeding unspecified, unspecified chronicity, unspecified gastritis type K29.70 Gastritis type: unspecified gastritis Chronicity: unspecified Gastritis bleeding: presence of bleeding unspecified Esophagitis K20.90 Benign prostatic hyperplasia, unspecified whether lower urinary tract symptoms present N40.0 Lower urinary tract symptom presence: unspecified whether lower urinary tract symptoms present Rheumatoid arthritis, involving unspecified site, unspecified whether rheumatoid factor present M06.9 Rheumatoid arthritis location: unspecified site Rheumatoid factor presence: unspecified presence Gout, unspecified cause, unspecified chronicity, unspecified site M10.9 Gout site: unspecified site Gout etiology: unspecified cause Chronicity: unspecified Hypertension, unspecified type I10 Hypertension type: unspecified Tubular adenoma of colon D12.6 Sleep apnea, unspecified type G47.30 Sleep apnea type: unspecified type Additional Codes SARAH-7 Assessment Billing - SARAH-7 Assessment Tool: SARAH-7 Assessment 04999 ([id number]) PHQ-9 - 41258 - PHQ-9 Billing: Yes ([id number]) Time Spent (min) 42 Assessment & Plan Assessment & Plan (1) Alcohol use: Code(s): Z72.89 - Other problems related to lifestyle Category: Social Hx (2) Gastritis: Code(s): K29.70 - Gastritis, unspecified, without bleeding Category: Medical Qualifiers: Gastritis type: unspecified gastritis Chronicity: unspecified Gastritis bleeding: presence of bleeding unspecified Qualified Code(s): K29.70 - Gastritis, unspecified, without bleeding (3) Esophagitis: Code(s): K20.90 - Esophagitis, unspecified without bleeding Category: Medical (4) BPH (benign prostatic hyperplasia): Code(s): N40.0 - Benign prostatic hyperplasia without lower urinary tract symptoms Category: Medical Qualifiers: Lower urinary tract symptom presence: unspecified whether lower urinary tract symptoms present Qualified Code(s): N40.0 - Benign prostatic hyperplasia without lower urinary tract symptoms (5) Rheumatoid arthritis: Comment: taking hydroxychloroquine Code(s): M06.9 - Rheumatoid arthritis, unspecified Category: Medical Qualifiers: Rheumatoid arthritis location: unspecified site Rheumatoid factor presence: unspecified presence Qualified Code(s): M06.9 - Rheumatoid arthritis, unspecified (6) Gout: Code(s): M10.9 - Gout, unspecified Category: Medical Qualifiers: Gout site: unspecified site Gout etiology: unspecified cause Chronicity: unspecified Qualified Code(s): M10.9 - Gout, unspecified (7) Hypertension: Comment: stable; cont same meds Code(s): I10 - Essential (primary) hypertension Category: Medical Qualifiers: Hypertension type: unspecified Qualified Code(s): I10 - Essential (primary) hypertension (8) Tubular adenoma of colon: Comment: golyte/ miralax 3 days prior Code(s): D12.6 - Benign neoplasm of colon, unspecified Category: Medical (9) Sleep apnea: Comment: no CPAP Code(s): G47.30 - Sleep apnea, unspecified Category: Medical Qualifiers: Sleep apnea type: unspecified type Qualified Code(s): G47.30 - Sleep apnea, unspecified Plan The patient will be referred to a hearing aid consultant for ongoing management of rheumatoid arthritis, tendonitis, bursitis, and gout. A referral to a urologist will be considered due to the family history of prostate cancer. The patient will undergo a colonoscopy as part of preventative care, given the history of polyp removal. Blood work will be ordered to assess overall health, including cholesterol levels, and should be completed before the next visit. Medication reconciliation will be performed to address duplication issues, particularly concerning allopurinol and amitriptyline. The patient is advised to use biofreeze and comfortable footwear to manage plantar fasciitis symptoms. Patient was informed and verbally consented to the use of an ambient scribe for clinic note documentation during this visit. Orders: Orders Complete Blood Count Auto Diff Today G47.30 - Sleep apnea, unspecified, I10 - Essential (primary) hypertension, M06.9 - Rheumatoid arthritis, unspecified, Z00.00 - Encounter for general adult medical examination without abnormal findings, Z72.89 - Other problems related to lifestyle Comprehensive [place]. Panel Fast Today G47.30 - Sleep apnea, unspecified, I10 - Essential (primary) hypertension, M06.9 - Rheumatoid arthritis, unspecified, Z00.00 - Encounter for general adult medical examination without abnormal findings, Z72.89 - Other problems related to lifestyle UA CC w/rflx Micro + Cult Today G47.30 - Sleep apnea, unspecified, I10 - Essential (primary) hypertension, M06.9 - Rheumatoid arthritis, unspecified, Z00.00 - Encounter for general adult medical examination without abnormal findings, Z72.89 - Other problems related to lifestyle TSH reflex Free T4 Today G47.30 - Sleep apnea, unspecified, I10 - Essential (primary) hypertension, M06.9 - Rheumatoid arthritis, unspecified, Z00.00 - Encounter for general adult medical examination without abnormal findings, Z72.89 - Other problems related to lifestyle Vitamin D 25-OH Total Today G47.30 - Sleep apnea, unspecified, I10 - Essential (primary) hypertension, M06.9 - Rheumatoid arthritis, unspecified, Z00.00 - Encounter for general adult medical examination without abnormal findings, Z72.89 - Other problems related to lifestyle Lipid Panel Today G47.30 - Sleep apnea, unspecified, I10 - Essential (primary) hypertension, M06.9 - Rheumatoid arthritis, unspecified, Z00.00 - Encounter for general adult medical examination without abnormal findings, Z72.89 - Other problems related to lifestyle PSA,Total (Free>4and<10) Today G47.30 - Sleep apnea, unspecified, I10 - Essential (primary) hypertension, M06.9 - Rheumatoid arthritis, unspecified, Z00.00 - Encounter for general adult medical examination without abnormal findings, Z72.89 - Other problems related to lifestyle Uric Acid Today M10.9 - Gout, unspecified Referrals Rheumatology Referral M06.9 - Rheumatoid arthritis, unspecified Gastroenterology Referral D12.6 - Benign neoplasm of colon, unspecified, K20.90 - Esophagitis, unspecified without bleeding, K29.70 - Gastritis, unspecified, without bleeding Urology Referral N40.0 - Benign prostatic hyperplasia without lower urinary tract symptoms
--- OUTSIDE RECORDS SUMMARY | 2025-04-12 11:32 | XMS_ITS | Encounter Summary ---
Author Organization [employer] Address [address] [facility] 7 [place] [address] Care Team Providers Care Metal Lather Name Role Phone Unavailable Primary Care Provider Unavailabl e Reason for Visit * Reason Onset Date Comments consulation dentures 09/27/2024 Encounter Details Date Type Department Care Team (Late st Contact Info) Description 09/27/2024 Telephone [facility] ADULT DENTAL [address] [place] [address] Celia Regan, DDS [address] [place] [address] consulation dentures Social History Tobacco Use Types [...] consultation for dentures/patient got immediate dentures in [facility] but they no longer accept his insurance. He is looking for the regular dentures . Confrimed with front desk specialist can provide appt for consulation DR documented in this encounter Plan of Treatment Not on file documented as of this encounter Visit Diagnoses Not on filedocumented in this encounter
--- OUTSIDE RECORDS SUMMARY | 2025-04-12 11:32 | XMS_ITS | Patient Health Record ---
Author Organization [facility] Address [address] [facility] [place] [address] Care Team Providers Care Senior Property Accountant Name Role Phone Mik Joseph MD Primary Care Provider Unavaila Vlad Myers Unavailable [phone] Allergies Allergen (clinical drug ingredient) Drug/Non Drug [...] Medicare National [employer] [address] [place] [address] [id number] Jay Mcgregor Self - patient is the insured [facility] [address] [place] [address] [phone] [id number] Jay Mcgregor Self - patient is the insured Medical (General) History Medical History History ICD Code Hypertension Rheumatoid arthritis Gout Back,Hip,and Knee pain Cataracts Headaches/Migraines Mumps Numbness Poor circulation Psoriasis/eczema chronic sinusitis Eczema Benign prostatic hyperplasia (BPH) Sleep apnea Dementia homochromatosis Surgical History Surgery Date(Month/Year) appendectomy 1970 cholecystectomy 1989 facial fractures 1991
== END 2025-04-12 12:02 | disposition home or self-care (01) ==
LOC: HO.HMCH 10:42
PROVIDERS: PCP Internal Medicine
DX: K29.70 Gastritis, unspecified, without bleeding (principal); K20.90 Esophagitis, unspecified without bleeding; N40.0 Benign prostatic hyperplasia without lower urinary tract symptoms; M06.9 Rheumatoid arthritis, unspecified; Z72.89 Other problems related to lifestyle; M10.9 Gout, unspecified; I10 Essential (primary) hypertension; D12.6 Benign neoplasm of colon, unspecified; G47.30 Sleep apnea, unspecified

== ENCOUNTER → 2025-04-12 10:42 | Outpatient (BNVA) | payer MEDICARE, SELFPAY | PROVIDERS: PCP Internal Medicine | DX: M62.81 Muscle weakness (generalized) (principal); R06.9 Unspecified abnormalities of breathing; G47.30 Sleep apnea, unspecified; M10.9 Gout, unspecified; K29.70 Gastritis, unspecified, without bleeding; K20.90 Esophagitis, unspecified without bleeding; N40.0 Benign prostatic hyperplasia without lower urinary tract symptoms; M06.9 Rheumatoid arthritis, unspecified; I10 Essential (primary) hypertension; D12.6 Benign neoplasm of colon, unspecified; Z72.89 Other problems related to lifestyle | CPT/HCPCS: 96127; 99202 ==

== ENCOUNTER 2025-04-27 11:26 | Outpatient (REF) | payer MEDICARE, SELFPAY ==
--- OUTSIDE RECORDS SUMMARY | 2025-04-26 14:20 | XMS_ITS | Encounter Summary ---
Author Organization [employer] Address [address] [facility] [facility] [address] [place] [address] Care Team Providers Care Flakeboard Line Tender Name Role Phone Unavailable Primary Care Provider Unavailabl e Reason for Visit * Reason Onset Date Comments Appointment 01/10/2025 Encounter Details Date Type Department Care Team (Late st Contact Info) Description 01/10/2025 Telephone [facility] ADULT DENTAL [address] [place] [address] Celia Regan DDS [address] [place] [address] Appointment Social History Tobacco Use Types Packs/Day Years [...] encounter Miscellaneous Notes * Telephone Encounter - Donnell Soares - 01/10/2025 8:14 AM EDT PT HAS FALLEN WE ACCEPT FALLEN UNABLE TO POST COVERAGE FOR EMERGENCY VISIT TODAY CS documented in this encounter Plan of Treatment Not on file documented as of this encounter Visit Diagnoses Not on filedocumented in this encounter
--- OUTSIDE RECORDS SUMMARY | 2025-04-26 14:20 | XMS_ITS | Clinical Summary ---
Author Organization [employer] Address [address] [facility] [address] [place] [address] Care Team Providers Care Visual Merchandising Manager Name Role Phone Unavailable Primary Care Provider [...] Active Active Problems No known active problems Immunizations Immunization Administration Dates Next Due Influenza High-dose Quadriva [...] 2024 06/18/2023, 06/17/2022, 12/17/2021, Additional history exists Dental X-Ray: Bitewings 09/22/2024 09/21/2023 Dental Oral Exam 04/19/2025 10/19/2024, 09/21/2023 Influenza Vaccine (#1) 2025 , 06/09/2022, 05/23/2021, Additional history exists Tobacco Screening 01/10/2026 01/10/2025 Dental X-Ray: Full Mouth 10/20/2027 10/19/2024, 09/01 DTaP/Tdap/Td Vaccines (2 - Td or Tdap) 03/10/2032 03/10/2022 Zoster Vaccines Completed 05/12/2022, 03/10/2022 RSV Patients and Patients Aged 60 years or older Completed 09/10/2023 HIB Vaccines Aged Out No longer eligi [...] patient's age to complete this topic Meningococcal B Vaccine Aged Out No l onger eligible based on patient's age to complete [...] Procedure Name Priority Date/Time Associated Diagnosis Comments PANORAMIC RADIOGRAPHIC IMAGE Routine 10/19/2024 9:30 AM EST Encounter for dental examination Edentulism PERIODIC ORAL EVALUATION - ESTABLISHED PATIENT Routine 10/19/2024 9:30 AM EST Encounter for dental examination Edentulism INTRAORAL - COMPLETE SERIES OF RADIOGRAPHIC IMAGES Routine 09/21/2023 8:00 AM EST Dental caries Excessive dental attrition Partial edentulism, class III from Last 3 Months or Most Recently Relevant to Health Maintenance Insurance HSN FULL [facility] C[facility] OPTIONS (O D-SNP) JUAN [place]AN [id number] [facility] [place] [address] , [place] [address] , [place] [address]
--- OUTSIDE RECORDS SUMMARY | 2025-04-26 14:20 | XMS_ITS | Encounter Summary ---
Author Organization [employer] Address [address] [facility] [address] [place] [address] Care Team Providers Care Railroad Firer Name Role Phone Unavailable Primary Care Provider Unavailabl e Reason for Visit * Reason Onset Date Comments consulation dentures 09/27/2024 Encounter Details Date Type Department Care Team (Late st Contact Info) Description 09/27/2024 Telephone [facility] ADULT DENTAL [address] [place] [address] Celia Regan, DDS [address] [place] [address] consulation dentures Social History Tobacco Use Types [...] consultation for dentures/patient got immediate dentures in [facility] but they no longer accept his insurance. He is looking for the regular dentures . Confrimed with front office specialist can provide appt for consulation DR documented in this encounter Plan of Treatment Not on file documented as of this encounter Visit Diagnoses Not on filedocumented in this encounter
[2025-04-27 11:47] LABS: MANUAL DIFF FLAG NO
[2025-04-27 12:27] LABS: Hematocrit 44.1 % (42.0-52.0); Hemoglobin 15.1 g/dl (14.0-18.0); Imm Gran Abs Auto 0.01 X10*3/uL (0.00-0.03); Imm Gran Pct Auto 0.2 % (0.0-0.4); Lymphocytes Absolute Auto 1.7 X10*3/uL (1.2-4.9); Mean Corpuscular HGB Conc 34.2 g/dl (31.0-36.0); Mean Corpuscular Hemoglobin 31.5 pg (27.0-33.0); Mean Corpuscular Volume 92.1 fL (80.0-98.0); NRBC Abs Auto 0.000 X10*3/uL (0.0-0.012); NRBC Pct Auto 0.0 /100WBC (0.0-0.2); Platelet Count 185 X10*3/uL (160-400); Red Blood Count 4.79 X10*6/uL (4.60-5.80); White Blood Count 5.1 X10*3/uL (4.8-10.8)
--- OUTSIDE RECORDS SUMMARY | 2025-04-27 12:45 | XMS_ITS | Clinical Summary ---
Author Organization [employer] Address [address] [facility] [address] [place] [address] Care Team Providers Care Lot Boss Name Role Phone Unavailable Primary Care Provider [...] Relevant to Health Maintenance Insurance HSN FULL [facility] OPTIONS (O D-SNP) [place] [id number] [facility] [place] [address] , [place] [address] , [place] [address]
--- OUTSIDE RECORDS SUMMARY | 2025-04-27 12:45 | XMS_ITS | Encounter Summary ---
Author Organization [employer] Address [address] [facility] 7 [place] [address] Care Team Providers Care Cannoneer Name Role Phone Unavailable Primary Care Provider Unavailabl e Reason for Visit * Reason Onset Date Comments consulation dentures 09/27/2024 Encounter Details Date Type Department Care Team (Late st Contact Info) Description 09/27/2024 Telephone [facility] ADULT DENTAL [address] [place] [address] Celia Regan, DDS [address] [place] [address] consulation dentures Social History Tobacco Use Types [...] consultation for dentures/patient got immediate dentures in [facility] but they no longer accept his insurance. He is looking for the regular dentures . Confrimed with front sight attacher can provide appt for consulation DR documented in this encounter Plan of Treatment Not on file documented as of this encounter Visit Diagnoses Not on filedocumented in this encounter
--- OUTSIDE RECORDS SUMMARY | 2025-04-27 12:46 | XMS_ITS | Encounter Summary ---
Author Organization [employer] Address [address] [facility] 7 [place] [address] Care Team Providers Care Ip Attorney Name Role Phone Unavailable Primary Care Provider Unavailabl e Reason for Visit * Reason Onset Date Comments Appointment 01/10/2025 Encounter Details Date Type Department Care Team (Late st Contact Info) Description 01/10/2025 Telephone [facility] ADULT DENTAL [address] [place] [address] Celia Regan DDS [address] [place] [address] Appointment Social History Tobacco Use Types Packs/Day [...]
--- OUTSIDE RECORDS SUMMARY | 2025-04-27 12:46 | XMS_ITS | Patient Health Record ---
Author [facility] Address [address] [facility] [place] [address] Care Team Providers Care Sat Instructor Name Role Phone Mik Joseph MD Primary Care Provider Unavaila Vlad Myers Unavailable [phone] Allergies Allergen (clinical drug ingredient) Drug/Non Drug [...] Medicare National Gov[employer] [address] [place] [address] [id number] Jay Mcgregor Self - patient is the insured [facility] [address] [place] [address] [id number] Jay Mcgregor Self - patient is the insured Medical (General) History Medical History History ICD Code Hypertension Rheumatoid arthritis Gout Back,Hip,and Knee pain Cataracts Headaches/Migraines Mumps Numbness Poor circulation Psoriasis/eczema chronic sinusitis Eczema Benign prostatic hyperplasia (BPH) Sleep apnea Dementia homochromatosis Surgical History Surgery Date(Month/Year) appendectomy 1970 cholecystectomy 1989 facial fractures 1991
[2025-04-27 12:49] LABS: Appearance Urine Clear; Glucose Urine UA Negative (Negative); PH 6.0 (5.0-9.0); Specific Gravity - Urine 1.010 (1.005-1.025)
[2025-04-27 13:09] LABS: Alanine Aminotransferase 30 U/L (0-40); Albumin Level 4.6 g/dL (3.5-5.0); Alkaline Phosphatase 67 U/L (39-117); Anion Gap 11 (12-20); Aspartate Amino Transferase 32 U/L (5-37); Blood Urea Nitrogen 14 mg/dL (9-16); Calcium 9.4 mg/dL (8.4-10.2); Carbon Dioxide 26 mmol/L (22-29); Chloride 108 mmol/L (96-108); Cholesterol 143 mg/dL (<200); Estimated Glomerular Filt Rate > 60; HDL Cholesterol 40 mg/dL (>40); Potassium 4.1 mmol/L (3.3-5.1); Sodium 141 mmol/L (135-145); Total Protein 7.2 g/dL (6.5-8.0); Triglycerides 84 mg/dL (<150); Uric Acid 7.8 mg/dL (3.4-7.0)
[2025-04-27 13:10] LABS: PSA,Total (Free>4and<10) 1.37 ng/mL (0.00-4.00)
== END 2025-04-27 11:27 | disposition home or self-care (01) ==
LOC: HO.LAB 11:26
DX: Z00.00 Encounter for general adult medical examination without abnormal findings (principal); M06.9 Rheumatoid arthritis, unspecified; M10.9 Gout, unspecified; I10 Essential (primary) hypertension; G47.30 Sleep apnea, unspecified; Z72.89 Other problems related to lifestyle; Z12.5 Encounter for screening for malignant neoplasm of prostate; Z13.21 Encounter for screening for nutritional disorder
CPT/HCPCS: 36415; 80053; 80061; 81003; 82306; 84153; 84443; 84550; 85025

== ENCOUNTER 2025-05-11 10:31 | Emergency (ER) | payer MEDICARE, SELFPAY ==
[2025-05-11 10:48] VITALS: BP 139/63; PULSE 65; RESP 16; TEMP 36.1; O2SAT 96; BMI 25.5
--- NOTE | 2025-05-11 10:52 | ED_ITS ---
HPI - General Adult General Chief complaint: General Medical Stated complaint: Med refill Time Seen by Provider: 05/11/25 10:51 Source: patient Mode of arrival: ambulatory Limitations: no limitations History of Present Illness ED Provider: OKSANA DALAL PA-C HPI narrative: 70 year old male with pmhx significant for gastgritis, etoh abuse, RA, HTN, and tubular adenoma presents to the ED today requesting medication refill. He has an appointment with his building maintenance mechanic on 05/22/25 (in 11 days) and states he cannot get these refilled until this appointment. He has presented to our facility for refills on 12/22, 02/08, and 03/27. He is requesting refills of enbrel, finasteride, hydroxychloroquine, motrin, and sulfasalazine. No physical complaints. Related Data Previous Rx's ?Medication ?Instructions ?Recorded mometasone 0.1 % topical cream 1 appl topical DAILY #4 5 grams 04/10/21 omeprazole magnesium 20 mg 20 mg PO BID #60 tabs 08/13 tablet,delayed release (Prilosec OTC) allopurinol 100 mg tablet 100 mg PO BID 30 days #60 ta bs 12/22/24 amlodipine 5 mg tablet 5 mg PO DAILY 30 days #30 ta bs 12/22/24 hydroxychloroquine 200 mg tablet 200 mg PO BID #60 tab s 02/08/25 amitriptyline 10 mg tablet 20 mg (2 x 10 mg) PO BEDTIM E 30 03/27/25 days #60 tabs etanercept 25 mg/0.5 mL 25 mg (0.5 mL) subcut 2XW 30 days 03/27/25 subcutaneous solution (Enbrel) #4.5 mL ibuprofen 600 mg tablet 600 mg PO TID PRN pain #90 t abs 03/27/25 sulfasalazine 500 mg tablet 500 mg PO TID #90 tabs triamcinolone acetonide 0.5 % 1 appl topical BID #15 g jeanine 03/27/25 topical cream amlodipine 5 mg tablet 5 mg PO DAILY #30 tabs 04/28 atenolol 100 mg tablet 100 mg PO DAILY 30 days #30 tabs 04/28/25 finasteride 5 mg tablet 5 mg PO DAILY 30 days #30 ta bs 04/28/25 erythromycin with ethanol 2 % 1 appl topical BID 30 da ys #60 mL 05/09/25 topical solution tamsulosin 0.4 mg capsule 0.4 mg PO BEDTIME #90 caps 0 05/09/25 etanercept 25 mg/0.5 mL (0.5 mL) 25 mg (0.5 mL) subcut 2XW #2 mL 05/11/25 subcutaneous syringe (Enbrel) finasteride 5 mg tablet 5 mg PO DAILY 2 weeks #14 ta bs 05/11/25 hydroxychloroquine 200 mg tablet 200 mg PO BID 2 weeks #28 tabs 05/11/25 (Plaquenil) ibuprofen 600 mg tablet 600 mg PO TID PRN pain (scal e 05/11/25 score 4-6) 2 weeks #42 tabs sulfasalazine 500 mg tablet 500 mg PO TID 2 weeks #42 tabs 05/11/25 Allergies Allergy/AdvReac Type Severity Reaction Status Date / Time methotrexate (METHOTREXATE) Allergy Unknown NAUSEA Verified 05/11/25 10:48 Review of Systems Review of Systems: Yes all other systems are reviewed and are negative [facility] Past Medical History Attestation statement: The following information was validated with the patient. Source: old records reviewed and nursing notes reviewed Medical History Rheumatoid arthritis Sleep apnea Hypertension Surgical History H/O colonoscopy History of facial surgery History of cholecystectomy History of appendectomy Family History Family History Father Alzheimers disease Mother Pyelonephritis Family/Other Prostate cancer Breast cancer Polymyalgia rheumatica Social History Social History Household Members Other:: single Housing: Apartment Are you a primary point of care technician to a significant other at home: No Do you presently have visiting nurse or other home services: No Patient Tobacco Use Status: Former Tobacco user e-Cigarette/Vaping Use: Never Used Second Hand Smoke Exposure: No Advance Directives: No Advance Directives Information Provided: Yes service: No Current occupational status: disabled Cognitive needs: No Hearing needs: No Vision needs: Yes Physical Exam ED Vital Signs: Vital Signs - 24 hr 05/11/25 10:48 Temperature 96.9 F Pulse Rate 65 Respiratory Rate 16 Blood Pressure 139/63 Pulse Oximetry 96 Oxygen Delivery Method Room Air BMI result Body Mass Index 25.5 vital signs stable General: Well appearing, in no acute distress. Skin: Warm, dry, intact. No rashes or lesions. Head: Normocephalic, atraumatic. EENT: Hearing is intact b/l. Conjunctiva clear. Sclera is anicteric. PERRLA. EOM intact. Moist mucous membranes.? Cardiac: Chest wall symmetric. RRR Lungs: Normal respiratory effort without accessory muscle use Back: No midline spinous or paraspinal tenderness. No step off deformity. Ext: Upper and lower extremities atraumatic, without tenderness, deformity, swelling or erythema Neuro: AOx3. Normal speech. Ambulating with steady gait Medical Decision Making Medical Decision Making MDM Narrative: 70 year old male with pmhx significant for gastgritis, etoh abuse, RA, HTN, and tubular adenoma presents to the ED today requesting medication refill. His vitals are stable. He is well-appearing. He has no physical complaints. It appears that these 5 medications were last filled on 03/27/2025. He has an upcoming appointment with his building maintenance mechanic on 05/22/2025 (in approximately 2 weeks). He states he can get further refills at this appointment. Plan to send patient a 2 week supply of these medications. I stressed the importance of following up with his provider for further refills. Patient has remained stable throughout ED visit today. Discussed worrisome signs and symptoms and when to return to the ED. All questions answered at this time. Patient is agreeable with disposition and stable for discharge. Differential Diagnosis Differential Diagnoses: The differential diagnosis associated with the presentation includes as above. Admission/Observation not indicated External Record Review External record reviewed: Inpatient record Social Determinants Patient?s care significantly limited by Social Determinants of Health including: Other Social Determinant of Health Critical Care Time Critical Care Time Critical Care Time: No Discharge Plan Discharge Clinical Impression: Encounter for medication refill Patient Disposition: Home, Self-Care Instructions: Rheumatoid Arthritis (ED) Additional Instructions: You have been provided with refills of your medications to last you until you are able to see your building maintenance mechanic on 05/22/25. Please make sure you follow up with your out patient providers for further refills. Return with any new or worsening symptoms. In the case of an emergency call 911. Prescriptions: New Enbrel 25 mg/0.5 mL (0.5) syringe 25 mg subcut 2XW Qty: 2 0RF finasteride 5 mg tablet 5 mg PO DAILY 14 Days Qty: 14 0RF hydroxychloroquine [Plaquenil] 200 mg tablet 200 mg PO BID 14 Days Qty: 28 0RF ibuprofen 600 mg tablet 600 mg PO TID PRN (Reason: pain (scale score 4-6)) 14 Days Qty: 42 0RF sulfasalazine 500 mg tablet 500 mg PO TID 14 Days Qty: 42 0RF Rx Instructions: give with food (meal/snack) No Action mometasone 0.1 % cream 1 appl topical DAILY Qty: 45 8RF amlodipine 5 mg tablet 5 mg PO DAILY Qty: 30 3RF atenolol 100 mg tablet 100 mg PO DAILY 30 Days Qty: 30 3RF finasteride 5 mg tablet 5 mg PO DAILY 30 Days Qty: 30 3RF erythromycin with ethanol 2 % solution 1 appl topical BID 30 Days Qty: 60 3RF tamsulosin 0.4 mg capsule 0.4 mg PO BEDTIME Qty: 90 3RF omeprazole magnesium [Prilosec OTC] 20 mg tablet,delayed release (DR/EC) 20 mg PO BID Qty: 60 0RF allopurinol 100 mg tablet 100 mg PO BID 30 Days Qty: 60 0RF amlodipine 5 mg tablet 5 mg PO DAILY 30 Days Qty: 30 0RF hydroxychloroquine 200 mg tablet 200 mg PO BID Qty: 60 0RF amitriptyline 10 mg tablet 20 mg PO BEDTIME 30 Days Qty: 60 0RF sulfasalazine 500 mg tablet 500 mg PO TID Qty: 90 0RF Rx Instructions: give with food (meal/snack) triamcinolone acetonide 0.5 % cream 1 appl topical BID Qty: 15 0RF ibuprofen 600 mg tablet 600 mg PO TID PRN (Reason: pain) Qty: 90 0RF Enbrel 25 mg/0.5 mL solution 25 mg subcut 2XW 30 Days Qty: 4.5 0RF Referrals: Oscar Arguello FNP-C [Primary Care Provider, Internal Medicine] Discharge Date/Time: 05/11/25 11:08 Print Language: Greenlandic
--- OUTSIDE RECORDS SUMMARY | 2025-05-11 15:07 | XMS_ITS | Patient Health Record ---
Author [facility] Address [address] [facility] [place] [address] Care Team Providers Care Pattern Hanger Name Role Phone Mik Joseph MD Primary Care Provider Unavaila Vlad Myers Unavailable [phone] Allergies Allergen (clinical drug ingredient) Drug/Non Drug [...] Medicare National Govt Svcs Inc [address] [facility] [place] [address] [id number] Jay Mcgregor Self - patient is the insured [facility] [address] [place] [address] [id number] Jay Mcgregor Self - patient is the insured Medical (General) History Medical History History ICD Code Hypertension Rheumatoid arthritis Gout Back,Hip,and Knee pain Cataracts Headaches/Migraines Mumps Numbness Poor circulation Psoriasis/eczema chronic sinusitis Eczema Benign prostatic hyperplasia (BPH) Sleep apnea Dementia homochromatosis Surgical History Surgery Date(Month/Year) appendectomy 1970 cholecystectomy 1989 facial fractures 1991
== END 2025-05-11 11:08 | disposition home or self-care (01) ==
PROVIDERS: Emergency Provider Emergency Medicine
DX: M06.9 Rheumatoid arthritis, unspecified (principal); Z76.0 Encounter for issue of repeat prescription; I10 Essential (primary) hypertension; Z87.19 Personal history of other diseases of the digestive system; Z79.899 Other long term (current) drug therapy
CPT/HCPCS: 99281; 99282

== ENCOUNTER 2025-06-06 11:31 | Outpatient (AMB) | payer MEDICARE, SELFPAY ==
[2025-06-06 11:36] VITALS: BP 122/68; PULSE 62; RESP 18; TEMP 36.2; O2SAT 96; BMI 32.7
--- NOTE | 2025-06-06 11:36 | A.OFFPC_ITS ---
Vital Signs 06/06/25 11:36 Height 6 ft 5 in Weight 275 lb 8 oz BMI 32.7 BP 122/68 Blood Pressure Location Lt brachial Position Sitting Respiration 18 Pulse 62 Pulse Source Pulse Oximeter Temp 97.1 F Temp Source Temporal Artery Scan Pulse Oximetry (%) 96 Oxygen Delivery Method Room Air Intake Visit Reasons: 8 Weeks annual physical Analog Device Designer Required: No Accompanied by: Self / Same As Patient Allergies methotrexate (METHOTREXATE) Allergy (Unknown, Verified 06/06/25 11:56) NAUSEA Medication List - Last Reconciled 06/06/25 by DIEGO Pearson-C allopurinol 100 mg PO BID 30 days amitriptyline 20 mg (2 x 10 mg) PO BEDTIME 90 days amlodipine 5 mg PO DAILY 30 days amlodipine 5 mg PO DAILY atenolol 100 mg PO DAILY 30 days erythromycin with ethanol 2 % 1 appl topical BID 30 days etanercept (Enbrel) 25 mg (0.5 mL) subcut 2XW 30 days etanercept (Enbrel) 25 mg (0.5 mL) subcut 2XW finasteride 5 mg PO DAILY 2 weeks finasteride 5 mg PO DAILY 30 days hydroxychloroquine 200 mg PO BID hydroxychloroquine (Plaquenil) 200 mg PO BID 2 weeks ibuprofen 600 mg PO TID PRN 2 weeks ibuprofen 600 mg PO TID PRN mometasone 0.1% 1 appl topical DAILY omeprazole magnesium (Prilosec OTC) 20 mg PO BID sulfasalazine 500 mg PO TID sulfasalazine 500 mg PO TID 2 weeks tamsulosin 0.4 mg PO BEDTIME triamcinolone acetonide 0.5% 1 appl topical BID Tobacco use date assessed: 06/06/25 Fall risk assessment: 1 Fall in past year Last assessed Fall Risk: 06/06/25 Dental Screening Dental Screen Date: 06/06/25 Did you have a dental visit in the last 12 months?: Yes Did you have a dental problem in the last 6 months where you did not have access to dental care?: No Was dental information given to patient?: Patient has dentist HPI 8 Weeks annual physical HPI Details Dentist: up to date -new denture Eye: up to date Snellen: Right: Left: Corrected vision: yes, glasses STI screening: Colonoscopy: couple years ago Pap Smer:n/a PHQ-9: Flu: up to date COVID: x 4 Tdap: 2021 Diet: regular Exercise: walking regularly tinnitus bilaterally. Will sent for hearing test and refer him ent. [facility] Medical History Rheumatoid arthritis Sleep apnea Hypertension Surgical History H/O colonoscopy History of facial surgery History of cholecystectomy History of appendectomy Family History Father Alzheimers disease Mother Pyelonephritis Family/Other Prostate cancer Breast cancer Polymyalgia rheumatica Social History Household Members Other:: single Housing: Apartment Are you a primary acute care occupational therapist to a significant other at home: No Do you presently have visiting nurse or other home services: No Patient Tobacco Use Status: Former Tobacco user e-Cigarette/Vaping Use: Never Used Second Hand Smoke Exposure: No service: No Current occupational status: disabled Cognitive needs: No Hearing needs: No Vision needs: Yes Questionnaire Thrive Questionnaire Date Thrive assessed: 04/12/25 SARAH-7 AMB Questionnaire SARAH-7 Date SARAH - 7 assessed: 04/12/25 Source: Developed by Drs. Ryan Shah, Ginger Zaidi, Krish Peng and colleagues, with an educational kota from [employer]. Review of Systems Const Denies headache(s) Eyes Denies loss of vision ENT Denies vertigo, Denies dizziness, Denies headache(s), Reports tinnitus and Denies sore throat Card Denies chest pain, Denies leg edema and Denies lightheadedness Resp Denies cough, Denies hemoptysis and Denies wheezing GI Denies abdominal pain, Denies melena, Denies constipation, Denies diarrhea and Denies vomiting Denies dysuria, Denies urinary frequency and Denies urinary urgency Musc Reports arthralgias (multiple joints), Reports joint swelling (multiple joint ), Denies numbness and Denies tingling Neuro Denies Abnormal speech present, Denies behavioral changes, Denies vertigo, Denies dizziness, Denies headache(s), Denies loss of vision, Denies memory loss, Denies numbness and Denies tingling Psych Denies anxiety, Denies behavioral changes, Denies depression, Denies memory loss and Denies panic attacks Neptali/Lymph Denies easy bleeding and Denies easy bruising Aller/Immun Denies wheezing Physical exam (Primary Care) Vital Signs: Last Vital Signs Temp 97.1 F 06/06/25 11:36 Pulse 62 06/06/25 11:36 Resp 18 06/06/25 11:36 BP 122/68 06/06/25 11:36 Pulse Ox 96 06/06/25 11:36 Oxygen Delivery Method Room Air 06/06/25 11:36 BMI result Body Mass Index 32.7 Tobacco/Smoking Status: Tobacco use Status Tobacco use date assessed 06/06/25 06/06/25 11:38 Patient Tobacco Use Status Former Tobacco user 06/06/25 11:38 e-Cigarette/Vaping Use Never Used 06/06/25 11:38 Thrive Assessment: Date of Thrive Assessment Date Thrive assessed 04/12/25 06/06/25 11:38 Const General: healthy appearing, no acute distress, alert and awake Nutritional Appearance: well nourished Orientation/consciousness: oriented to person, oriented to place and oriented to time HENMT Ears: TM's normal bilaterally General nose exam: Normal nasal mucous membranes and turbinates present Eyes Conjunctivae: conjunctivae normal Sclerae: sclerae normal Pupils: Equal, round and reactive pupils present Neck Neck: Yes no lymphadenopathy and Yes no JVD Thyroid: Thyroid normal Carotids: no bruits Resp Effort & Inspection: normal respiratory effort and not tachypneic Auscultation: no crackles, no rales, no rhonchi and no wheezes Cardio Rate: regular rate Rhythm: regular rhythm Heart sounds: no murmurs and normal S1 and S2 GI Palpation (GI): Soft to palpation, nontender, no hepatomegaly and no splenomegaly Auscultation: normal bowel sounds General: Yes no CVA tenderness Back/Spine/Pelvis Back: no CVA tenderness Skin General skin exam: no rashes or lesions noted and dry skin Neuro General: oriented to person, oriented to place and oriented to time Cranial nerves: Yes Equal, round and reactive pupils present Speech: No Abnormal speech present Gait exam (Neuro): Normal gait present Motor exam (neuro): no tremor noted Extrem Right upper extremity: full ROM Left upper extremity: full ROM Right lower extremity: full ROM; no edema Left lower extremity: full ROM; no edema Psych Mental Status: mental status grossly normal Speech and movement: Normal speech and movement present Affect: normal affect Attitude: cooperative Thought process: Normal thought process present Results Reviewed Results Reviewed: Laboratory Tests 04/27/25 04/27/25 11:41 11:46 WBC 5.1 RBC 4.79 Hgb 15.1 Hct 44.1 MCV 92.1 MCH 31.5 MCHC 34.2 RDW 13.1 Plt Count 185 Sodium 141 Potassium 4.1 Chloride 108 Carbon Dioxide 26 Anion Gap 11 L BUN 14 Creatinine 1.19 Estimated GFR > 60 Fasting Glucose 92 Uric Acid 7.8 H Calcium 9.4 Total Bilirubin 1.7 H AST 32 ALT 30 Alkaline Phosphatase 67 Total Protein 7.2 Albumin 4.6 Triglycerides 84 Cholesterol 143 LDL Cholesterol, Calc 87 HDL Cholesterol 40 L Total PSA 1.37 25-OH Vitamin D Total 30.8 TSH 3.84 Urine Color Yellow Urine Appearance Clear Urine pH 6.0 Ur Specific [place] 1.010 Urine Protein Negative Urine Glucose (UA) Negative Urine Ketones Negative Urine Blood Negative Urine Nitrite Negative Ur Leukocyte Esterase Negative Coding Level of Care Code Est Pt Prev Care >65y(52108) Diagnoses Annual physical exam Z00.00 Alcohol use Z72.89 Esophagitis K20.90 Benign prostatic hyperplasia, unspecified whether lower urinary tract symptoms present N40.0 Lower urinary tract symptom presence: unspecified whether lower urinary tract symptoms present Rheumatoid arthritis, involving unspecified site, unspecified whether rheumatoid factor present M06.9 Rheumatoid arthritis location: unspecified site Rheumatoid factor presence: unspecified presence Gout, unspecified cause, unspecified chronicity, unspecified site M10.9 Gout site: unspecified site Gout etiology: unspecified cause Chronicity: unspecified Hypertension, unspecified type I10 Hypertension type: unspecified Tubular adenoma of colon D12.6 Sleep apnea, unspecified type G47.30 Sleep apnea type: unspecified type Tinnitus of both ears H93.13 Laterality: bilateral Time Spent (min) 39 Assessment & Plan Assessment & Plan (1) Annual physical exam: Code(s): Z00.00 - Encounter for general adult medical examination without abnormal findings Category: Medical Plan: Preventative preventative guidelines and recent labs reviewed with the patient. Colonoscopy in 2020 noted moderate diverticulosis, 2 3-4 mm sessile polyps removed. The patient reports that he has to make an appointment. (2) Alcohol use: Code(s): Z72.89 - Other problems related to lifestyle Category: Social Hx Plan: Encouraged cessation (3) Esophagitis: Code(s): K20.90 - Esophagitis, unspecified without bleeding Category: Medical Plan: Continue omeprazole magnesium 20 mg b.i.d. Follow up with GI as scheduled (4) BPH (benign prostatic hyperplasia): Code(s): N40.0 - Benign prostatic hyperplasia without lower urinary tract symptoms Category: Medical Qualifiers: Lower urinary tract symptom presence: unspecified whether lower urinary tract symptoms present Qualified Code(s): N40.0 - Benign prostatic hyperplasia without lower urinary tract symptoms Plan: Continue tamsulosin 4 mg at bedtime Follow up with Urology as scheduled (5) Rheumatoid arthritis: Comment: taking hydroxychloroquine Code(s): M06.9 - Rheumatoid arthritis, unspecified Category: Medical Qualifiers: Rheumatoid arthritis location: unspecified site Rheumatoid factor presence: unspecified presence Qualified Code(s): M06.9 - Rheumatoid arthritis, unspecified Plan: Continue hydroxychloroquine 200 mg b.i.d. follow with rheumatology as scheduled (6) Gout: Code(s): M10.9 - Gout, unspecified Category: Medical Qualifiers: Gout site: unspecified site Gout etiology: unspecified cause Chronicity: unspecified Qualified Code(s): M10.9 - Gout, unspecified Plan: uric acid 7.8 continue allopurinol 100mg bid (7) Hypertension: Comment: stable; cont same meds Code(s): I10 - Essential (primary) hypertension Category: Medical Qualifiers: Hypertension type: unspecified Qualified Code(s): I10 - Essential (primary) hypertension Plan: bp 122/78 goal systolic 130mm hg or less reinforced low salt intake continue amlodipine 5mg daily, atenolol 100 mg daily (8) Tubular adenoma of colon: Comment: golyte/ miralax 3 days prior Code(s): D12.6 - Benign neoplasm of colon, unspecified Category: Medical Plan: colonoscopy 2020 needs follow appt, reports that he will call (9) Sleep apnea: Comment: no CPAP Code(s): G47.30 - Sleep apnea, unspecified Category: Medical Qualifiers: Sleep apnea type: unspecified type Qualified Code(s): G47.30 - Sleep apnea, unspecified Plan: reports that he was unable to tolerate CPAP (10) Tinnitus: Code(s): H93.19 - Tinnitus, unspecified ear Category: Medical Qualifiers: Laterality: bilateral Qualified Code(s): H93.13 - Tinnitus, bilateral Plan: Longstanding tinnitus bilateral, will ordering test and refer the patient to ENT to further evaluate. Orders: Referrals Ear/Nose/Throat Referral H93.19 - Tinnitus, unspecified ear Speech and Hearing Referral H93.19 - Tinnitus, unspecified ear Medications: Discontinued amlodipine Discontinued Reason: Duplicate 5 mg PO DAILY 30 days 30 tabs 0RF etanercept (Enbrel) Discontinued Reason: Duplicate 25 mg (0.5 mL) subcut 2XW 30 days 4.5 mL 0RF sulfasalazine give with food (meal/snack) Discontinued Reason: Duplicate 500 mg PO TID 90 tabs 0RF ibuprofen Discontinued Reason: Duplicate 600 mg PO TID PRN 90 tabs 0RF pain
--- OUTSIDE RECORDS SUMMARY | 2025-06-06 14:35 | XMS_ITS | Encounter Summary ---
Author Organization [employer] Address [address] [facility] 7 [place] [address] Care Team Providers Care Paralegals Name Role Phone Unavailable Primary Care Provider Unavailabl e Reason for Visit * Reason Onset Date Comments consulation dentures 09/27/2024 Encounter Details Date Type Department Care Team (Late st Contact Info) Description 09/27/2024 Telephone [facility] ADULT D[facility] [address] [place] [address] Celia Regan, DDS [address] [place] [address] consulation dentures Social History Tobacco Use Types [...] consultation for dentures/patient got immediate dentures in [facility] but they no longer accept his insurance. He is looking for the regular dentures . Confrimed with front desk monitor can provide appt for consulation DR documented in this encounter Plan of Treatment Not on file documented as of this encounter Visit Diagnoses Not on filedocumented in this encounter
--- OUTSIDE RECORDS SUMMARY | 2025-06-06 14:35 | XMS_ITS | Clinical Summary ---
Author Organization [email or web address] Address [address] [facility] 7[address] [place] [address] Care Team Providers Care Marine Meteorologist Name Role Phone Unavailable Primary Care Provider [...] 2 - PCV) 03/10/2023 03/10/2022, 11/05/2015, 10/11/2014 Dental X-Ray: Bitewings 09/22/2024 09/21/2023 Dental Oral Exam 04/19/2025 10/19/2024, 09/21/2023 COVID-19 Vaccine ( season) 2025 06/18/2023, 06/17/2022, 12/17/2021, Additional history exists Influenza Vaccine (#1) 2025 , 06/09/2022, 05/23/2021, [...] Relevant to Health Maintenance Insurance [employer] FULL [facility] OPTIONS (O D-SNP) JUAN ALAN [id number] [facility] [place] [id number] , [place] [id number] , [place] [address]
--- OUTSIDE RECORDS SUMMARY | 2025-06-06 14:35 | XMS_ITS | Patient Health Record ---
Author [facility] Address [address] [place] [address] Care Team Providers Care Pump Oiler Name Role Phone Mik Joseph MD Primary Care Provider Unavaila Vlad Myers Unavailable [phone] Allergies Allergen (clinical drug ingredient) Drug/Non Drug [...] Finasteride 5 MG TAKE 1 TABLET BY CAMYRN TH ONCE DAILY Oral; Duration: 30 Active [...] Medicare National Govt Svcs Inc [address] [facility] [place] [place] [address] [id number] Jay Mcgregor Self - patient is the insured [facility] [address] [place] [address] [phone] [id number] Jay Mcgregor Self - patient is the insured Medical (General) History Medical History History ICD Code Hypertension Rheumatoid arthritis Gout Back,Hip,and Knee pain Cataracts Headaches/Migraines Mumps Numbness Poor circulation Psoriasis/eczema chronic sinusitis Eczema Benign prostatic hyperplasia (BPH) Sleep apnea Dementia homochromatosis Surgical History Surgery Date(Month/Year) appendectomy 1970 cholecystectomy 1989 facial fractures 1991
--- OUTSIDE RECORDS SUMMARY | 2025-06-06 14:35 | XMS_ITS | Encounter Summary ---
Author Organization [employer] Address [address] [facility] 7 [place] [address] Care Team Providers Care Fabrication Welder Name Role Phone Unavailable Primary Care Provider Unavailabl e Reason for Visit * Reason Onset Date Comments Appointment 01/10/2025 Encounter Details Date Type Department Care Team (Late st Contact Info) Description 01/10/2025 Telephone C ADULT DENTAL [address] [place] [address] Celia Regan DDS [address] [place] [address] Appointment Social History Tobacco Use Types Packs/Day [...]
== END 2025-06-06 12:28 | disposition home or self-care (01) ==
LOC: HO.HMCH 11:32
DX: Z00.00 Encounter for general adult medical examination without abnormal findings (principal); M06.9 Rheumatoid arthritis, unspecified; Z72.89 Other problems related to lifestyle; K20.90 Esophagitis, unspecified without bleeding; N40.0 Benign prostatic hyperplasia without lower urinary tract symptoms; M10.9 Gout, unspecified; I10 Essential (primary) hypertension; D12.6 Benign neoplasm of colon, unspecified; G47.30 Sleep apnea, unspecified; H93.13 Tinnitus, bilateral

== ENCOUNTER → 2025-06-06 11:31 | Outpatient (BNVA) | payer MEDICARE, SELFPAY | DX: Z00.00 Encounter for general adult medical examination without abnormal findings (principal); K20.90 Esophagitis, unspecified without bleeding; N40.0 Benign prostatic hyperplasia without lower urinary tract symptoms; M06.9 Rheumatoid arthritis, unspecified; M10.9 Gout, unspecified; I10 Essential (primary) hypertension; D12.6 Benign neoplasm of colon, unspecified; G47.30 Sleep apnea, unspecified; H93.13 Tinnitus, bilateral; Z72.89 Other problems related to lifestyle | CPT/HCPCS: 99397 ==

== ENCOUNTER 2025-08-18 11:31 | Outpatient (AMB) | payer MEDICARE, SELFPAY ==
[2025-08-18 11:41] VITALS: BP 133/63; PULSE 58; RESP 17; O2SAT 96; BMI 32.4
--- NOTE | 2025-08-18 11:41 | A.OFFVIS_ITS ---
Vital Signs 08/18/25 11:41 Height 6 ft 5 in Weight 273 lb 5.971 oz BMI 32.4 BP 133/63 Blood Pressure Location Lt brachial Position Sitting Respiration 17 Pulse 58 Pulse Source Pulse Oximeter Pulse Oximetry (%) 96 Oxygen Delivery Method Room Air Intake Visit Reasons: Gastritis Allergies methotrexate (METHOTREXATE) Allergy (Unknown, Verified 06/06/25 11:56) NAUSEA Medication List - Last Reconciled 08/18/25 by Natividad Castillo CNP allopurinol 100 mg PO BID 30 days amitriptyline 20 mg (2 x 10 mg) PO BEDTIME 90 days amlodipine 5 mg PO DAILY atenolol 100 mg PO DAILY 30 days erythromycin with ethanol 2 % 1 appl topical BID 30 days etanercept (Enbrel) 25 mg (0.5 mL) subcut 2XW finasteride 5 mg PO DAILY 2 weeks hydroxychloroquine 200 mg PO BID ibuprofen 600 mg PO TID PRN 2 weeks mometasone 0.1% 1 appl topical DAILY multivitamin 1 tab PO DAILY sulfasalazine 500 mg PO TID 2 weeks tamsulosin 0.4 mg PO BEDTIME triamcinolone acetonide 0.5% 1 appl topical BID HPI HPI Gastritis: Details: Patient is a 70-year-old male with PMH of sleep apnea, BPH, gout, hypertension, alcohol use disorder. Last visit with JUAN Kramer 03/14/2021 for pre colonoscopy screening. Follow-up on gastritis and overdue surveillance endoscopies. He underwent an EGD in July 2021 after being hospitalized for a food impaction, which revealed erosive esophagitis, gastritis, and duodenitis. A repeat EGD was recommended in 3 months, for which he is now overdue. His last colonoscopy was in March 2021, which was a complete exam with good preparation. Findings included the removal of six polyps: one 10-12 mm precancerous polyp in the transverse colon, and five polyps in the sigmoid colon, of which two were precancerous and one was a benign hyperplastic polyp. The procedure also revealed diverticulosis of the sigmoid colon and internal hemorrhoids. Due to the finding of a large, advanced precancerous polyp, a 3- year surveillance interval was recommended, making him due for a repeat colonoscopy. His past medical history is significant for sleep apnea for which he is non- adherent with CPAP, benign prostatic hyperplasia, hypertension, gout, rheumatoid arthritis, and alcohol use. He is not currently taking omeprazole, which was prescribed after his 2020 EGD. Patient denies: fever/chills, n/v, appetite changes, pyrosis, regurgitation,dysphasia, unintentional wt loss, ab pain or melena/hematochezia. Social hx: -ETOH use 6-8 beers/month -smokes marijuana approx 1x/month, denies other recreational drug use -former smoker, cessation 1995 - family hx as below -denies personal hx of CA -denies significant cardiopulmonary history -tolerated anesthesia in the past without difficulty. [facility] Medical History (Updated 08/18/25 @ 12:23 by Natividad Castillo CNP) Diverticulosis Rheumatoid arthritis Sleep apnea Hypertension Surgical History H/O colonoscopy History of facial surgery History of cholecystectomy History of appendectomy Family History Father Alzheimers disease Mother Pyelonephritis Family/Other Prostate cancer Breast cancer Polymyalgia rheumatica Social History Household Members Other:: single Housing: Apartment Are you a primary skin care consultant to a significant other at home: No Do you presently have visiting nurse or other home services: No Patient Tobacco Use Status: Former Tobacco user e-Cigarette/Vaping Use: Never Used Second Hand Smoke Exposure: No service: No Current occupational status: disabled Cognitive needs: No Hearing needs: No Vision needs: Yes Review of Systems Const Reports as per HPI ENT Reports as per HPI Card Reports as per HPI Resp Reports as per HPI GI Reports no additional complaints Reports as per HPI Physical Exam Vital Signs: Last Vital Signs Pulse 58 08/18/25 11:41 Resp 17 08/18/25 11:41 BP 133/63 08/18/25 11:41 Pulse Ox 96 08/18/25 11:41 Oxygen Delivery Method Room Air 08/18/25 11:41 BMI result Body Mass Index 32.4 Const General: healthy appearing, no acute distress and well developed Nutritional Appearance: average body habitus Orientation/consciousness: patient oriented x3 HEENT Head: Yes normal to inspection, Yes normocephalic and Yes atraumatic Face and sinus: Yes normal facial exam Eyes General: appearance normal, both eyes and all related structures Neck Neck: Yes normal visual inspection Resp Effort & Inspection: normal respiratory effort, able to speak in complete sentences, no tracheal deviation and symmetric chest movement Cardio Jugular venous distension: no JVD GI Inspection: Yes obesity Auscultation: normal bowel sounds Neuro General: patient oriented x3 Gait exam (Neuro): Normal gait present Psych Appearance: grossly normal Mental Status: mental status grossly normal Speech and movement: Normal speech and movement present Affect: normal affect Attitude: cooperative Thought process: Normal thought process present Thought content: Normal thought content present Insight: Good insight present (Psych) Judgement: Good judgement present (Psych) Results Reviewed Results Reviewed: Operative Note Operative Note Date of Service: 08/13/21 Narrative: Procedure Description: EGD FLEXIBLE TRANSORAL UPPER GASTROINTESTINAL ENDOSCOPY UPPER ENDOSCOPY Consent: Indications for the procedure and potential complications of bleeding, perforation, reaction to medications and missed diagnosis were discussed with the patient and informed consent was obtained. Instrument: Olympus GIF H 190 J mid size upper endoscope Monitoring: Vital signs and clinical assessment, continuous EKG monitoring, Pulse oximetry, Carbon Dioxide monitoring and blood pressure monitoring were done throughout the procedure. Procedure: The patient was placed in the left lateral decubitis position and pre-procedure medications were administered and a bite block was placed. The endoscope was inserted into the mouth and advanced under direct vision to the third part of duodenum. A careful inspection was made as the upper endoscope was withdrawn including a retroflexed examination of the proximal stomach; Findings and interventions are described below. Findings: Larynx:normal Esophagus: GE junction at 45 cm, diaphragm hiatus at 45 cm, inflammed and macerated tissue around the GEJ with few erosions in distal esophagus noted but no food bolus seen. Bx taken from distal esophagus and proximal esophagus in separate jars. Stomach: diffuse gastric erythema with rubbery tissue. Biopsies were obtained. Grade 2 flap valve on retroflexed examination of the cardia. Duodenum: erosive duodenitis noted in the bulb and descending areas, bx taken Intervention: Biopsies as noted above Impression/Findings: no food bolus erosive duodenitis esophagitis gastritis PLAN: await path d/c with high dose PPI and 2 weeks of carafate repeat EGD in 3 months chew food thoroughly with plenty of fluids PATHOLOGY: Collected: 08/13/21 Location: [facility] Received: 08/13/21 Diagnosis A. Duodenum, biopsies: Duodenal mucosa within normal limits; negative for active and chronic duodenitis, intraepithelial lymphocytosis, villous atrophy, dysplasia, and carcinoma. B. Stomach, biopsies: Antral and corpus mucosa with moderate chronic active gastritis, intestinal metaplasia, and numerous Helicobacter pylori; negative for dysplasia and carcinoma. C. Esophagus, distal, biopsies: Mild active esophagitis (very rare neutrophils and eosinophils; nonspecific); negative for dysplasia and carcinoma. D. Esophagus, proximal, biopsies: Mild active esophagitis (very rare neutrophils and eosinophils; nonspecific); negative for dysplasia and carcinoma. Clinical History Pre-Op Dx: Food bolus impaction Post-Op Dx: Esophagitis, gastritis, erosive duodenitis ---- Brief Operative Note Date of Service: 04/26/21 Pre-op diagnosis: Colon cancer screening, history of colon polyps Post-op diagnosis: other (Colon polyps, diverticulosis, hemorrhoids) Procedure: COLONOSCOPY TILL MID ASCENDING COLON WITH BIOPSIES AND SNARE POLYPECTOMY Consent: Indications for the procedure and potential complications of bleeding, perforation, reaction to medications and missed diagnosis were discussed with the patient and informed consent was obtained. Instrument: Olympus CF HQ 190 L variable stiffness adult colonoscope Monitoring: Vital signs and clinical assessment, intermittent blood pressure monitoring, continuous EKG monitoring, Pulse oximetry and Carbon Dioxide monitoring were done throughout the procedure. Colon withdrawl time was 25 minutes. Procedure: The patient was placed in the left lateral decubitis position and pre-procedure medications were administered. After a digital rectal examination of the ano-rectum, the video colonoscope was inserted into the rectum and advanced through the colon to the mid AC. The colonoscope was slowly withdrawn in a retrograde panoramic fashion and the colon mucosa was carefully examined including a retroflexed view of the rectum. Findings and interventions are described below. Procedure Difficulty: Colon was long and tortuous and there was recurrent loop formation. Patient was placed in the supine position with application of abdominal pressure to intubate the ascending colon. Cecum was visualized from a distance and was not intubated Findings: Terminal Ileum: Not evaluated Cecum: Not evaluated Ascending Colon: Normal Transverse Colon: A 10-12 mm sessile polyp removed with a cold snare Descending Colon: Moderate diverticulosis Sigmoid Colon: Two 3-4 mm sessile polyps removed with a cold bx. Three 8-10 mm sessile polyps removed with a cold snare. Moderate diverticulosis Rectum: Normal Ano-rectum: Moderate internal hemorrhoids Colon preparation: Good Impression and Post Procedure Diagnosis: Colonoscopy Findings: Six small to medium sized polyps removed. Cecum was not evaluated Moderate diverticulosis seen in the left colon Moderate hemorrhoids on retroflexed exam. Plan: Await pathology results Patient has an appointment on 05/23/21 in the GI Clinic with JUAN Alaniz. Repeat Colonoscopy interval based on path results - in 6 to 12 months with small bowel enteroscope to help reach the cecum if polyps are adenomatous - please schedule with Dr Constantino Above findings were reviewed with the patient and colon polyps and diverticulosis handouts were given in the discharge area Surgeon: Valdemar Regalado MD PATHOLOGY Collected: 04/26/21 Location: [facility] Received: 04/26/21 Diagnosis A. Colon, transverse, polypectomy: Fragments of sessile serrated polyp. B. Colon, sigmoid, polypectomies: - Tubular adenomas (two); no high-grade dysplasia or carcinoma seen. - Hyperplastic mucosal polyps. Clinical History Pre-Op Dx: Adenoma of the colon Post-Op Dx: Colon polyps, diverticulosis and hemorrhoids Assessment & Plan Assessment & Plan (1) Tubular adenoma of colon: Comment: 04/26/2021 colonoscopy complete with good prep-one 10-12 mm SSP (transverse colon), TA X2, HP, diverticulosis ( sigmoid colon), internal hemorrhoids. Per guidelines repeat due 3 years ( 2023) Code(s): D12.6 - Benign neoplasm of colon, unspecified Category: Medical Plan: Overdue for polyp surveillance colonoscopy. No alarm features. - An order for a repeat colonoscopy has been placed. - A prescription for the bowel prep, consisting of 4 laxative tablets and a bottle of MiraLax, will be sent to his pharmacy. - He was instructed to purchase 64 ounces of Gatorade (avoiding red, blue, or purple varieties), follow a clear liquid diet the day before the procedure, and was provided with a detailed prep instruction packet. (2) Gastritis: Comment: 08/13/21 EGD -no food bolus, erosive duodenitis, esophagitis, gastritis. Recommendations for repeat in 3 months. Code(s): K29.70 - Gastritis, unspecified, without bleeding Category: Medical Qualifiers: Gastritis type: unspecified gastritis Chronicity: unspecified Gastritis bleeding: presence of bleeding unspecified Qualified Code(s): K29.70 - Gastritis, unspecified, without bleeding Plan: The patient is overdue for a repeat EGD, originally recommended 3 months after his July 2021 procedure, which found erosive inflammation. - As the patient is currently asymptomatic and denies heartburn, an EGD will be scheduled to re-evaluate for inflammation. - If inflammation persists on the new EGD, restarting acid-suppressive therapy will be considered. - The EGD will be scheduled concurrently with the colonoscopy. (3) Alcohol use: Code(s): Z72.89 - Other problems related to lifestyle Category: Social Hx Plan: Counseled the patient to minimize or avoid alcohol altogether. (4) Diverticulosis: Code(s): K57.90 - Diverticulosis of intestine, part unspecified, without perforation or abscess without bleeding Category: Medical Plan: The patient was educated on his diagnosis of diverticulosis and the goal of preventing progression to diverticulitis. - He was advised to maintain good colonic health by consuming fermented foods or probiotics, ensuring adequate fiber intake, and staying hydrated to prevent constipation. Plan Follow-up after colonoscopy or sooner as needed Time: I spent a total of 30 minutes on the date of encounter which includes: Preparing to see the patient (reviewed previous documentation, test results and medical history) Performing a medically appropriate exam and/or evaluation Ordering medications, tests, and procedures Documenting clinical information in the health record Orders: Referrals GI Procedure Notification D12.6 - Benign neoplasm of colon, unspecified, K29.70 - Gastritis, unspecified, without bleeding, Z72.89 - Other problems related to lifestyle Medications: New polyethylene glycol 3350 (Miralax) per colonoscopy prep instructions 238 grams PO ONCE 238 grams 0RF bisacodyl take four tablets once day of colonoscopy prep 20 mg (4 x 5 mg) PO ONCE 4 tabs 0RF Coding Level of Care Code New Pt New Pt Level 3 (55012) Patient Type New Diagnoses Tubular adenoma of colon D12.6 Gastritis, presence of bleeding unspecified, unspecified chronicity, unspecified gastritis type K29.70 Gastritis type: unspecified gastritis Chronicity: unspecified Gastritis bleeding: presence of bleeding unspecified Alcohol use Z72.89 Diverticulosis K57.90
--- OUTSIDE RECORDS SUMMARY | 2025-08-18 13:41 | XMS_ITS | Encounter Summary ---
Author Organization [employer] Address [address] [facility] 7 [place] [address] Care Team Providers Care Lumber Puller Name Role Phone Unavailable Primary Care Provider Unavailabl e Reason for Visit * Reason Onset Date Comments Appointment 01/10/2025 Encounter Details Date Type Department Care Team (Late st Contact Info) Description 01/10/2025 Telephone C ADULT DENTAL [address] [place] [address] Celia Regan DDS [address] [place] [address] Appointment Social History Tobacco Use Types Packs/Day [...]
--- OUTSIDE RECORDS SUMMARY | 2025-08-18 13:41 | XMS_ITS | Encounter Summary ---
Author Organization [employer] Address [address] [facility] 7 [place] [address] Care Team Providers Care Cryogenic Transport Driver Name Role Phone Unavailable Primary Care Provider Unavailabl e Reason for Visit * Reason Onset Date Comments consulation dentures 09/27/2024 Encounter Details Date Type Department Care Team (Late st Contact Info) Description 09/27/2024 Telephone [facility] ADULT DENTAL [address] [place] [address] Celia Regan, DDS [address] [place] [address] consulation dentures Social History Tobacco Use Types [...] consultation for dentures/patient got immediate dentures in [facility] but they no longer accept his insurance. He is looking for the regular dentures . Confrimed with front office attendant can provide appt for consulation DR documented in this encounter Plan of Treatment Not on file documented as of this encounter Visit Diagnoses Not on filedocumented in this encounter
--- OUTSIDE RECORDS SUMMARY | 2025-08-18 13:41 | XMS_ITS | Patient Health Record ---
Author [facility] Address [address] [place] [address] Care Team Providers Care Portal Architect Name Role Phone Mik Joseph MD Primary Care Provider Unavaila Vlad Myers Unavailable [phone] Allergies Allergen (clinical drug ingredient) Drug/Non Drug [...] Medicare National Govt Svcs Inc [address] [facility] [place] [address] [id number] Jay Mcgregor Self - patient is the insured [facility] [address] [place] [address] [id number] Jay Mcgregor Self - patient is the insured Medical (General) History Medical History History ICD Code Hypertension Rheumatoid arthritis Gout Back,Hip,and Knee pain Cataracts Headaches/Migraines Mumps Numbness Poor circulation Psoriasis/eczema chronic sinusitis Eczema Benign prostatic hyperplasia (BPH) Sleep apnea Dementia homochromatosis Surgical History Surgery Date(Month/Year) appendectomy 1970 cholecystectomy 1989 facial fractures 1991
--- OUTSIDE RECORDS SUMMARY | 2025-08-18 13:41 | XMS_ITS | Clinical Summary ---
Author Organization [employer] Address [address] [facility] 7t [place] [address] Care Team Providers Care Processing Manager Name Role Phone Unavailable Primary Care [...] Health Maintenance Insurance HSN FULL [facility] OPTIONS (O D-SNP) JUAN ALAN [id number] [facility] [place] [id number] , [place] [id number] , [place] [address]
== END 2025-08-18 12:15 | disposition home or self-care (01) ==
LOC: HO.HGI 11:32
PROVIDERS: Visit Provider Nurse Practitioner Family
DX: D12.6 Benign neoplasm of colon, unspecified (principal); K29.70 Gastritis, unspecified, without bleeding; Z72.89 Other problems related to lifestyle; K57.90 Diverticulosis of intestine, part unspecified, without perforation or abscess without bleeding
CPT/HCPCS: 99203

== ENCOUNTER → 2025-08-18 11:31 | Outpatient (BNVA) | payer MEDICARE, SELFPAY | PROVIDERS: Visit Provider Nurse Practitioner Family | DX: K29.70 Gastritis, unspecified, without bleeding (principal); K57.30 Diverticulosis of large intestine without perforation or abscess without bleeding; D12.6 Benign neoplasm of colon, unspecified; Z90.49 Acquired absence of other specified parts of digestive tract; Z72.89 Other problems related to lifestyle | CPT/HCPCS: 99202 ==

== ENCOUNTER 2025-08-29 10:23 | Emergency (ER) | payer OTHER, SELFPAY ==
--- NOTE | 2025-08-29 11:22 | ED.URI ---
HPI - URI/Sore Throat General Chief Complaint: Upper Respiratory Symptoms Stated Complaint: sinus infection? Time Seen by Provider: 08/29/25 11:28 Source: patient, RN notes reviewed and old records reviewed Mode of arrival: ambulatory History of Present Illness ED Provider: Elissa Stanley PA-C HPI Narrative: 70-year-old male with history of gastritis, alcohol use, rheumatoid arthritis, HTN, tubular adenoma presenting to the ED c/o rhinorrhea, congestion, MALLORY, sinus pressure worsening x4-5 days. Denies fever, chills, SOB, CP, cough. +sick contacts Related Data Home Medications ?Medication ?Instructions ?Recorded ?Confirmed multivitamin 1 tab PO DAILY 08/18/25 08/18/25 Previous Rx's ?Medication ?Instructions ?Recorded mometasone 0.1 % topical cream 1 appl topical DAILY #45 grams 04/10/21 allopurinol 100 mg tablet 100 mg PO BID 30 days #60 tabs 12/22/24 hydroxychloroquine 200 mg tablet 200 mg PO BID #60 tabs 02/08/25 triamcinolone acetonide 0.5 % 1 appl topical BID #15 grams 03/27/25 topical cream tamsulosin 0.4 mg capsule 0.4 mg PO BEDTIME #90 caps 05/09/25 etanercept 25 mg/0.5 mL (0.5 mL) 25 mg (0.5 mL) subcut 2XW #2 mL 05/11/25 subcutaneous syringe (Enbrel) finasteride 5 mg tablet 5 mg PO DAILY 2 weeks #14 tabs 05/11/25 ibuprofen 600 mg tablet 600 mg PO TID PRN pain (scale 05/11/25 score 4-6) 2 weeks #42 tabs sulfasalazine 500 mg tablet 500 mg PO TID 2 weeks #42 tabs 05/11/25 amitriptyline 10 mg tablet 20 mg (2 x 10 mg) PO BEDTIME 90 06/02/25 days #180 tabs erythromycin with ethanol 2 % 1 appl topical BID 30 days #60 mL 08/04/25 topical solution amlodipine 5 mg tablet 5 mg PO DAILY #30 tabs 08/11/25 atenolol 100 mg tablet 100 mg PO DAILY 30 days #30 tabs 08/11/25 bisacodyl 5 mg tablet,delayed 20 mg (4 x 5 mg) PO ONCE #4 tabs 08/18/25 release polyethylene glycol 3350 17 238 g PO ONCE #238 grams 08/18/25 gram/dose oral powder (Miralax) amoxicillin 875 mg tablet 875 mg PO BID 5 days #10 tabs 08/29/25 fluticasone propionate 50 2 spray intranasal DAILY #16 grams 08/29/25 mcg/actuation nasal spray,suspension (Flonase Allergy Relief) Allergies Allergy/AdvReac Type Severity Reaction Status Date / Time methotrexate (METHOTREXATE) Allergy Unknown NAUSEA Verified 08/29/25 11:24 Review of Systems Review of Systems: Yes all other systems are reviewed and are negative Constitutional: Constitutional: Reports as per [facility] Past Medical History Attestation statement: The following information was validated with the patient. Source: old records reviewed Medical History Diverticulosis Rheumatoid arthritis Sleep apnea Hypertension Surgical History H/O colonoscopy History of facial surgery History of cholecystectomy History of appendectomy Family History Family History Father Alzheimers disease Mother Pyelonephritis Family/Other Prostate cancer Breast cancer Polymyalgia rheumatica Social History Social History Household Members Other:: single Housing: Apartment Are you a primary health and social care teacher to a significant other at home: No Do you presently have visiting nurse or other home services: No Patient Tobacco Use Status: Former Tobacco user e-Cigarette/Vaping Use: Never Used Second Hand Smoke Exposure: No service: No Current occupational status: disabled Cognitive needs: No Hearing needs: No Vision needs: Yes Physical Exam Vital Signs: Vital Signs: Last Vital Signs Temp 97.7 F 08/29/25 11:23 Pulse 55 08/29/25 11:23 Resp 16 08/29/25 11:23 BP 133/61 08/29/25 11:23 Pulse Ox 97 08/29/25 11:23 O2 Del Method Room Air 08/29/25 11:23 BMI result Body Mass Index 32.7 Const: General: cooperative, healthy appearing and no acute distress Orientation/consciousness: patient oriented x3 Limitations: no limitations HEENT: Head: Yes normal to inspection and Yes atraumatic Ears: hearing grossly normal bilaterally, external ears normal, TM's normal bilaterally and mastoids normal General nose exam: Normal external nose present Face and sinus: Yes normal facial exam Mouth: Normal oral and palatal mucosa present and no drooling Throat: Yes posterior oropharynx normal, Yes tonsils normal, Yes uvula midline, No peritonsillar mass, No uvula laterally displaced and No uvular edema Eyes: General: appearance normal, both eyes and all related structures EOM: EOMs intact bilaterally Neck: Neck: Yes normal visual inspection and Yes no meningeal signs Resp: Effort & Inspection: normal respiratory effort, no respiratory distress and no stridor Auscultation: clear to auscultation bilaterally Cardio: Rate: regular rate Heart sounds: S1 normal heart sound present and S2 normal heart sound present Skin: Rashes: no rashes Wounds: no wounds Neuro: General: patient oriented x3, tone normal and no meningeal signs Cranial nerves: Yes CN's II-XII intact bilaterally Gait exam (Neuro): Normal gait present Extrem: General: Yes normal to inspection Course Course Course Narrative: 1:54 PM 08/29/2025 (Elissa Stanley PA-C): COVID/flu/RSV negative. Discussed with patient is symptomatic remedies. Patient would like antibiotics at this time. Will discharge home with p.o. amoxicillin and Flonase. With close PCP follow-up Results discussed with patient including worrisome signs and symptoms and strict return precautions, and when to return to the emergency department. They verbalized understanding and feel safe for discharge at this time. Medical Decision Making Medical Decision Making [facility] Narrative: 70-year-old male with history of gastritis, alcohol use, rheumatoid arthritis, HTN, tubular adenoma presenting to the ED c/o rhinorrhea, congestion, MALLORY, sinus pressure worsening x4-5 days. On exam vital signs stable, NAD, nontoxic appearing, physical exam as noted above. Concern for viral illness vs sinusitis. 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 No evidence of acute otitis media or externa. Plan: Viral testing Please refer to course for remaining clinical decision making, interpretation of labs/imaging results, and discussions with consultants and/or family members. Differential Diagnosis Differential Diagnoses: The differential diagnosis associated with the presentation includes As above Lab Data [facility] Lab Attestation statement: I reviewed the patient's lab results. Labs: Lab Results 08/29/25 Range/Units 12:14 Influenza Type A (PCR) NEGATIVE (Negative) Influenza Type B (PCR) NEGATIVE (Negative) RSV RNA Qual (PCR) NEGATIVE (Negative) SARS-CoV-2 RNA (RT-PCR) NEGATIVE (Negative) External Record Review External record reviewed: Inpatient record, Office record, Outpatient record, Prior outpatient labs, Prior outpatient radiology, Primary care record and Outside ED record Tests considered The following testing was considered but not selected: As above Prescription Management I considered prescription management with: Pain Medication, Antiviral and Antibiotic Chronic Conditions Patient?s care impacted by: Other Social Determinants Patient?s care significantly limited by Social Determinants of Health including: Other Social Determinant of Health Discharge Plan Discharge Clinical Impression: Sinusitis Patient Disposition: Home, Self-Care Instructions: Sinusitis (ED) Additional Instructions: You tested negative for COVID, flu, RSV Amoxicillin as an antibiotic please take as prescribed until completion Flonase as a nasal decongestant Please have close follow up with her doctor If her symptoms persist or worsen return to the emergency department Prescriptions: New amoxicillin 875 mg tablet 875 mg PO BID 5 Days Qty: 10 0RF fluticasone propionate [Flonase Allergy Relief] 50 mcg/actuation spray,suspension 2 spray intranasal DAILY Qty: 16 0RF Rx Instructions: administer into each nostril No Action mometasone 0.1 % cream 1 appl topical DAILY Qty: 45 8RF tamsulosin 0.4 mg capsule 0.4 mg PO BEDTIME Qty: 90 3RF amitriptyline 10 mg tablet 20 mg PO BEDTIME 90 Days Qty: 180 3RF erythromycin with ethanol 2 % solution 1 appl topical BID 30 Days Qty: 60 3RF amlodipine 5 mg tablet 5 mg PO DAILY Qty: 30 3RF atenolol 100 mg tablet 100 mg PO DAILY 30 Days Qty: 30 3RF allopurinol 100 mg tablet 100 mg PO BID 30 Days Qty: 60 0RF hydroxychloroquine 200 mg tablet 200 mg PO BID Qty: 60 0RF triamcinolone acetonide 0.5 % cream 1 appl topical BID Qty: 15 0RF Enbrel 25 mg/0.5 mL (0.5) syringe 25 mg subcut 2XW Qty: 2 0RF finasteride 5 mg tablet 5 mg PO DAILY 14 Days Qty: 14 0RF ibuprofen 600 mg tablet 600 mg PO TID PRN (Reason: pain (scale score 4-6)) 14 Days Qty: 42 0RF sulfasalazine 500 mg tablet 500 mg PO TID 14 Days Qty: 42 0RF Rx Instructions: give with food (meal/snack) multivitamin Tablet 1 tab PO DAILY bisacodyl 5 mg tablet,delayed release (DR/EC) 20 mg PO ONCE Qty: 4 0RF Rx Instructions: take four tablets once day of colonoscopy prep polyethylene glycol 3350 [Miralax] 17 gram/dose powder 238 g PO ONCE Qty: 238 0RF Rx Instructions: per colonoscopy prep instructions Referrals: Oscar Arguello FNP-C [Primary Care Provider, Internal Medicine] - 1 week Print Language: Japanese
[2025-08-29 11:23] VITALS: BP 133/61; PULSE 55; RESP 16; TEMP 36.5; O2SAT 97; BMI 32.7
[2025-08-29 13:13] LABS: Resp Syncy Virus RNA Qual PCR NEGATIVE (Negative); SARS COV2 PCR INHOUSE NEGATIVE (Negative)
--- OUTSIDE RECORDS SUMMARY | 2025-08-29 17:46 | XMS_ITS | Patient Health Record ---
[facility] Address [address] [place] [address] Care Team Providers Care Sample Driller Name Role Phone Mik Joseph MD Primary Care Provider Unavaila Vlad Myers Unavailable [phone] Allergies Allergen (clinical drug ingredient) Drug/Non Drug [...] Medicare National [employer] [address] [facility] [place] [address] [id number] Jay Mcgregor Self - patient is the insured [facility] [address] [place] [address] [id number] Jay Mcgregor Self - patient is the insured Medical (General) History Medical History History ICD Code Hypertension Rheumatoid arthritis Gout Back,Hip,and Knee pain Cataracts Headaches/Migraines Mumps Numbness Poor circulation Psoriasis/eczema chronic sinusitis Eczema Benign prostatic hyperplasia (BPH) Sleep apnea Dementia homochromatosis Surgical History Surgery Date(Month/Year) appendectomy 1970 cholecystectomy 1989 facial fractures 1991
--- OUTSIDE RECORDS SUMMARY | 2025-08-29 17:46 | XMS_ITS | Clinical Summary ---
Author Organization [employer] Address [address] [place] [address] Care Team Providers Care Expert Medical Writer Name Role Phone Unavailable Primary Care Provider [...] Relevant to Health Maintenance Insurance [employer] [facility] [employer] [facility] OPTIONS (O D-[place]) JUAN ALAN [id number] [place] [id number] , [place] [phone] , [place] [phone]
--- OUTSIDE RECORDS SUMMARY | 2025-08-29 17:46 | XMS_ITS | Encounter Summary ---
Author Organization [employer] Address [address] [place] [address] Care Team Providers Care Scale And Skip Car Operator Name Role Phone Unavailable Primary Care Provider Unavailabl e Reason for Visit * Reason Onset Date Comments Appointment 01/10/2025 Encounter Details Date Type Department Care Team (Late st Contact Info) Description 01/10/2025 Telephone [facility] ADULT DENTAL [address] [place] [address] Celia Regan DDS [address] [place] [address] Appointment Social History Tobacco Use Types Packs/Day [...]
--- OUTSIDE RECORDS SUMMARY | 2025-08-29 17:46 | XMS_ITS | Encounter Summary ---
Author Organization [email or web address] Address [address] [place] [address] Care Team Providers Care All Around Presser Name Role Phone Unavailable Primary Care Provider Unavailabl e Reason for Visit * Reason Onset Date Comments consulation dentures 09/27/2024 Encounter Details Date Type Department Care Team (Late st Contact Info) Description 09/27/[address] [facility] [address] [place] [address] Celia Regan, DDS [address] [place] [address] consulation dentures Social History Tobacco Use Types [...] consultation for dentures/patient got immediate dentures in [facility] but they no longer accept his insurance. He is looking for the regular dentures . Confrimed with front desk person can provide appt for consulation DR documented in this encounter Plan of Treatment Not on file documented as of this encounter Visit Diagnoses Not on filedocumented in this encounter
== END 2025-08-29 17:00 | disposition home or self-care (01) ==
PROVIDERS: Physician Assistant; Emergency Provider Emergency Medicine
DX: J32.9 Chronic sinusitis, unspecified (principal); Z87.891 Personal history of nicotine dependence; Z03.818 Encounter for observation for suspected exposure to other biological agents ruled out
CPT/HCPCS: 87637; 99281; 99283